=== PATIENT | male | born 1935 | race Caucasian/White ===

== ENCOUNTER 2024-06-28 01:01 | Inpatient (IN) ==
[2024-06-28 01:56] LABS: Basophils # (auto) 0.03 K/uL (0.00-0.20); Basophils % (auto) 0.4 %; Eosinophils # (auto) 0.08 K/uL (0.00-0.50); Eosinophils % (auto) 1.2 %; Hematocrit (blood only) 32.4 % (42.0-52.0); Immature Granulocytes # (auto) 0.02 K/uL (0.01-0.20); Immature Granulocytes % (auto) 0.3 %; Lymphocytes # (auto) 0.68 K/uL (1.20-3.40); Lymphocytes % (auto) 10.1 %; Mean Corpuscular Hemoglobin 22.1 pg (25.0-34.0); Mean Corpuscular Hgb Conc 27.8 g/dL (32.0-36.0); Mean Corpuscular Volume 79.6 fL (80.0-100.0); Monocytes # (auto) 0.57 K/uL (0.11-0.59); Monocytes % (auto) 8.5 %; Neutrophils # (auto) 5.32 K/uL (1.40-6.50); Neutrophils % (auto) 79.5 %; Platelet Count 113 K/uL (130-400); RDW Coefficient of Variation 19.9 % (11.5-14.5); Red Blood Count 4.07 M/uL (4.70-6.10)
[2024-06-28 02:05] LABS: Calcium 8.5 mg/dl (8.6-10.3); Potassium 4.7 mmol/L (3.5-5.1)
[2024-06-28 02:11] LABS: BUN Creatinine Ratio 25.2 (10-20); Creatinine Clr Calc Pharmacy 58.4 ml/min
[2024-06-28 02:20] LABS: INR 1.2 (0.9-1.1); Prothrombin Time 12.4 Seconds (9.0-12.0)
--- NOTE | 2024-06-28 02:27 | CT Scan Report ---
EXAM: CT head/brain wo con CLINICAL HISTORY: Fall w/ facial injury. Blood thinner TECHNIQUE: Multiple axial images are obtained from the skull base to the vertex without contrast. CT scan was performed according to ALARA (as low as reasonable achievable). COMPARISON: None. FINDINGS: There is cerebral atrophy. No evidence of space occupying lesion, hemorrhage, edema, mass effect, midline shift, extra axial collection, or hydrocephalus is noted. Basal cisterns are symmetric and normal in size and configuration. There are scattered periventricular hypodensities as can be seen with chronic microvascular ischemic changes. The reed-white matter differentiation is preserved. Retention cyst is noted in the left maxillary sinus. Mild bilateral ethmoid sinusitis. Rest of paranasal sinuses and mastoid air cells are well aerated. Orbital contents are within normal limits. Bony structures are intact. Displaced fracture of bilateral nasal bone. IMPRESSION: 1. No evidence of acute intracranial abnormality is demonstrated. 2. Chronic microvascular ischemic changes. 3. Cerebral atrophy. Electronically signed by Jesus Farnsworth 06-28-2024 02:26 AM
--- NOTE | 2024-06-28 02:30 | CT Scan Report ---
EXAM: CT cervical spine wo con CLINICAL HISTORY: Fall w/ facial injury. Blood thinner TECHNIQUE: Computed tomography of the cervical spine performed without intravenous contrast. Contiguous axial images were obtained from the skull base to T2, with sagittal and coronal reformatted images reconstructed from the axial data. CT scan was performed according to ALARA (as low as reasonable achievable). COMPARISON: None. FINDINGS: Loss of cervical lordosis - suggest possibility of muscle spasm/positional. Degenerative changes involving cervical spine in the form of multilevel marginal osteophytes, disc space reduction and facetal arthrosis. Cervical vertebral bodies are normal in height and alignment, with no evidence of fracture or subluxation. Lateral masses of C1 are symmetrical, and the dens is intact. Prevertebral soft tissues are not widened. The remaining suprahyoid and infrahyoid soft tissues in the neck are unremarkable. Posterior uncovertebral arthrosis is noted at C6-C7 levels, which indenting ventral thecal sac and causes bilateral neuroforaminal narrowing. Thyroid gland appears unremarkable. IMPRESSION: 1.No acute fracture or subluxation in the cervical spine. 2.Cervical spondylosis. Visualized lung apices showed bilateral pleural effusion. Electronically signed by Jesus Farnsworth 06-28-2024 02:29 AM
--- NOTE | 2024-06-28 02:33 | CT Scan Report ---
EXAM: CT facial bones wo con CLINICAL HISTORY: Fall w/ facial injury. Blood thinner TECHNIQUE: Computed tomography of the orbits/face was performed without intravenous contrast. Contiguous axial images were obtained. Reformatted coronal and sagittal images were also reviewed. CT scan was performed according to ALARA (as low as reasonable achievable). COMPARISON: none. FINDINGS: Displaced fracture of bilateral nasal bone. Linear fracture of frontal process of maxilla bilaterally. Displaced fracture of right lamina papyracea. Right ethmoid hemosinus formation A retention cyst is noted in the left maxillary sinus. Rest of paranasal sinuses and mastoid air cells are clear. The globes, optic nerves, extraocular muscles and retro-orbital fat are grossly unremarkable. Reformatted imaging demonstrates intact roof and floor of the orbits. Included portions of the mandible are intact. The included intracranial substances and airway are unremarkable. IMPRESSION: Displaced fracture of bilateral nasal bone. Linear fracture of frontal process of maxilla bilaterally. Displaced fracture of right lamina papyracea. Right ethmoid hemosinus formation A retention cyst is noted in the left maxillary sinus. Electronically signed by Jesus Farnsworth 06-28-2024 02:32 AM
[2024-06-28 02:50] LABS: Adenovirus PCR Not Detected (NotDetected); Bordetella parapertussis PCR Not Detected (NotDetected); Bordetella pertussis PCR Not Detected (NotDetected); Chlamydia pneumoniae PCR Not Detected (NotDetected); Coronavirus 229E PCR Not Detected (NotDetected); Coronavirus CoV-2 (COVID19)PCR Not Detected (NotDetected); Coronavirus HKU1 PCR Not Detected (NotDetected); Coronavirus NL63 PCR Not Detected (NotDetected); Coronavirus OC43PCR Not Detected (NotDetected); Human Metapneumovirus PCR Not Detected (NotDetected); Influenza A PCR Not Detected (NotDetected); Influenza B PCR Not Detected (NotDetected); Mycoplasma pneumoniae PCR Not Detected (NotDetected); Parainfluenza Virus 1 PCR Not Detected (NotDetected); Parainfluenza Virus 2 PCR Not Detected (NotDetected); Parainfluenza Virus 3 PCR Not Detected (NotDetected); Parainfluenza Virus 4 PCR Not Detected (NotDetected); Respiratory Syncytial VirusPCR Not Detected (NotDetected); Rhinovirus/Enterovirus PCR Not Detected (NotDetected)
--- NOTE | 2024-06-28 02:55 | Emergency Department Note ---
Impression & Plan Maxillary fracture, Closed fracture nasal bone, Head injury, Pleural effusion, Acute hypoxemic respiratory failure ED Provider Note NAME: ANASTASIA MCLAUGHLIN AGE: 88 SEX: M : 1935 ARRIVES VIA: Ambulance INFORMANT: Patient, ED PROVIDER(S): Matthew Alvarado MD CHIEF COMPLAINT: Fall HPI: This is a 88-year-old male presenting for a fall. Patient states that he was ambulating with his cane instead of his walker. He states he fell for unknown reasons and hit the bathroom floor. He may have hit either the sink or the ground. He has contusion of the right eye. He has multiple skin tears to the right arm. He reports pain through his face at this time. He does take Eliquis for A-fib. Otherwise no nausea or vomiting. He reports persistent cough which is worsening of the past few days ROS: See above HPI for pertinent positives & negatives. A total of 10 systems reviewed and were otherwise negative. PAST MEDICAL HISTORY: See Below PAST SURGICAL HISTORY: See Below FAMILY HISTORY: See Below SOCIAL HISTORY: See Below HOME MEDICATIONS: See Below ALLERGIES: See Below VITALS: See Below PHYSICAL EXAMINATION: General: resting comfortably in no acute distress Head: Normocephalic, right periorbital ecchymosis, small contusion to the nasal bridge Eyes: Normal inspection, extraocular muscles intact Ear, nose, throat: Normal external exam Neck: Normal range of motion Respiratory: lungs clear to auscultation bilaterally Cardiovascular: Regular rate/rhythm, no murmur GI: soft, nontender, no guarding or rebound Extremities: nontender, moves all extremities Neuro: The patient awake and alert, appropriately conversive, no focal deficits, symmetric faces Skin: Warm, dry, and intact MEDICAL DECISION MAKING: This is an 88-year-old male presenting after a fall. Will do CT of the head, C- spine and face due to patient's current injuries. If there is no obvious deformities to the extremities she does have skin tears without underlying laceration. Will update tetanus at this time -Blood was reviewed showing hemoglobin at 9, no leukocytosis. INR 1.2. Upper restaurant panel negative -Electrolytes within normal limits -CT of the head and C-spine are negative for fractures, CT of the face does reveal nasal fractures bilaterally, displaced, linear fracture frontal process of maxilla bilaterally, and fracture of the right lamina papyracea. -Will give Augmentin at this time. -Consider discharge her patient is currently hypoxic, likely either CHF versus pneumonia. Will order chest x-ray -Chest x-ray as Independently interpreted by me reveals possible right focal opacity. -Will admit the patient he is currently hypoxic requiring 2 L. -Care discussed with Dr. Valdes for admission. -Official read of x-ray does reveal possible pulmonary contusion versus aspiration. CT scan ordered. To rule out pulmonary contusion. -CT scan does not reveal pulmonary contusion instead reveals pleural effusion Differential diagnosis: Intracranial hemorrhage, cervical spine fracture, facial fracture Independent History obtained from: Daughter Diagnostics interpreted by me: ECG: None Cardiac Monitoring: An order was placed for continuous cardiac monitoring. The monitor shows a rate of 89 with sinus rhythm. Past Med/Surg History Problem List (Updated 06/28/24 @ 06:15 by Matthew Alvarado MD) Acute hypoxemic respiratory failure (Acute) Pleural effusion (Acute) Head injury (Acute) Closed fracture nasal bone (Acute) Maxillary fracture (Acute) Medical History (Updated 06/28/24 @ 06:15 by Matthew Alvarado MD) HTN (hypertension), benign Tremor Surgical History (Updated 12/21/23 @ 09:34 by Lorene Nieves) S/P placement of cardiac pacemaker Social History Smoking Status: Former smoker Tobacco Type: Cigarettes Preferred Language: Lao Feels Safe at Home: Yes Allergies Allergies Allergy/AdvReac Type Severity Reaction Status Date / Time cat dander Allergy Sneezing Verified 06/28/24 05:23 Home Meds Home Medications Medication Instructions Recorded Confirmed albuterol sulfate 90 mcg/actuation 2 puff inhalation QID PRN Wheezing 12/21/23 06/28/24 aerosol inhaler apixaban 5 mg tablet 5 mg PO BID 12/21/23 06/28/24 aspirin 81 mg chewable tablet 81 mg PO DAILY 12/21/23 06/28/24 atorvastatin 10 mg tablet 10 mg PO QPM 12/21/23 06/28/24 cyanocobalamin (vitamin B-12) 500 500 mcg PO WK 12/21/23 06/28/24 mcg tablet fluticasone 250 mcg-salmeterol 50 1 inh inhalation BID 12/21/23 06/28/24 mcg/dose blistr powdr for inhalation fluticasone furoate 100 1 inh inhalation DAILY 12/21/23 06/28/24 mcg-vilanterol 25 mcg/dose inhalation powder isosorbide mononitrate 60 mg 60 mg PO DAILY 12/21/23 06/28/24 tablet,extended release 24 hr metformin 1,000 mg tablet 500 mg PO BID 12/21/23 06/28/24 metoprolol succinate 25 mg 25 mg PO DAILY 12/21/23 06/28/24 tablet,extended release 24 hr ondansetron 4 mg disintegrating 4 mg PO Q4H PRN Nausea 12/21/23 06/28/24 tablet Results & Data (ED) Vital Signs Vital Signs - 24 hr 06/28/24 01:12 06/28/24 01:34 06/28/24 01:43 Temperature 36.6 C Temperature Source Oral Pulse Rate 128 H 117 H Pulse Rate [Apical] 104 H Pulse Rate from SpO2 Sensor Respiratory Rate 20 20 Respiratory Effort / Characteristics Non-Labored Spontaneous Respiratory Depth Normal Respiratory Pattern Regular Blood Pressure 162/96 H Blood Pressure [Right Arm] 153/94 H Blood Pressure Mean 118 Blood Pressure Mean [Right Arm] 113 Blood Pressure Position Semi-fowlers Blood Pressure Position [Right Arm] Semi-fowlers Pulse Oximetry 93 96 Oxygen Delivery Method Room Air Nasal Cannula Oxygen Flow Rate 2 Sepsis Recent Fever Within 48 Hours No Sepsis New/Unexplained Change in Mental Status No Sepsis Action Taken by Nursing No Action Required 06/28/24 02:12 06/28/24 03:30 06/28/24 04:33 Temperature Temperature Source Pulse Rate 98 H 92 H Pulse Rate [Apical] 84 Pulse Rate from SpO2 Sensor 100 H 112 H Respiratory Rate 18 15 18 Respiratory Effort / Characteristics Respiratory Depth Respiratory Pattern Blood Pressure 162/113 H 160/124 H Blood Pressure [Right Arm] 158/111 H Blood Pressure Mean 129 136 Blood Pressure Mean [Right Arm] 126 Blood Pressure Position Blood Pressure Position [Right Arm] Semi-fowlers Pulse Oximetry 96 96 91 Oxygen Delivery Method Nasal Cannula Room Air Room Air Oxygen Flow Rate 2 Sepsis Recent Fever Within 48 Hours Sepsis New/Unexplained Change in Mental Status Sepsis Action Taken by Nursing 06/28/24 05:00 06/28/24 05:27 06/28/24 05:31 Temperature Temperature Source Pulse Rate 87 87 Pulse Rate [Apical] 88 Pulse Rate from SpO2 Sensor 92 H Respiratory Rate 16 18 Respiratory Effort / Characteristics Respiratory Depth Respiratory Pattern Blood Pressure 191/113 H Blood Pressure [Right Arm] 165/122 H Blood Pressure Mean 139 Blood Pressure Mean [Right Arm] 136 Blood Pressure Position Blood Pressure Position [Right Arm] Pulse Oximetry 94 97 Oxygen Delivery Method Room Air Room Air Oxygen Flow Rate Sepsis Recent Fever Within 48 Hours Sepsis New/Unexplained Change in Mental Status Sepsis Action Taken by Nursing 06/28/24 05:32 Temperature Temperature Source Pulse Rate 89 Pulse Rate [Apical] Pulse Rate from SpO2 Sensor Respiratory Rate Respiratory Effort / Characteristics Respiratory Depth Respiratory Pattern Blood Pressure Blood Pressure [Right Arm] Blood Pressure Mean Blood Pressure Mean [Right Arm] Blood Pressure Position Blood Pressure Position [Right Arm] Pulse Oximetry Oxygen Delivery Method Oxygen Flow Rate Sepsis Recent Fever Within 48 Hours Sepsis New/Unexplained Change in Mental Status Sepsis Action Taken by Nursing Laboratory Data 06/28/24 01:37 06/28/24 01:37 Lab Results 06/28/24 Range/Units 01:37 WBC 6.70 (4.8-10.8) K/ul RBC 4.07 L (4.70-6.10) M/uL Hgb 9.0 L (14.0-18.0) g/dl Hct 32.4 L (42.0-52.0) % MCV 79.6 L (80.0-100.0) fL MCH 22.1 L (25.0-34.0) pg MCHC 27.8 L (32.0-36.0) g/dL RDW Std Deviation 57.0 H (36.4-46.3) fL RDW Coeff of [place] 19.9 H (11.5-14.5) % Plt Count 113 L (130-400) K/uL MPV 10.0 (9.4-12.4) fL Immature Gran % (Auto) 0.3 % Neut % (Auto) 79.5 % Lymph % (Auto) 10.1 % [place] % (Auto) 8.5 % Eos % (Auto) 1.2 % Baso % (Auto) 0.4 % Neut # (Auto) 5.32 (1.40-6.50) K/uL Lymph # (Auto) 0.68 L (1.20-3.40) K/uL [place] # (Auto) 0.57 (0.11-0.59) K/uL Eos # (Auto) 0.08 (0.00-0.50) K/uL Baso # (Auto) 0.03 (0.00-0.20) K/uL Immature Gran # (Auto) 0.02 (0.01-0.20) K/uL PT 12.4 H (9.0-12.0) Seconds INR 1.2 H (0.9-1.1) Sodium 138 (136-145) mmol/L Potassium 4.7 (3.5-5.1) mmol/L Chloride 107 (98-107) mmol/L Carbon Dioxide 26 (21-32) mmol/L Anion Gap 5 (3-11) BUN 30 H (6-23) mg/dl Creatinine 1.19 (0.6-1.4) mg/dl Est Cr Clr Drug Dosing 58.4 ml/min eGFR 59.12 BUN/Creatinine Ratio 25.2 H (10-20) Glucose 138 H (70-99(Fasting)) mg/dl Calcium 8.5 L (8.6-10.3) mg/dl Adenovirus (PCR) Not Detected (NotDetected) B. pertussis DNA (PCR) Not Detected (NotDetected) B.parapertussis DNA PCR Not Detected (NotDetected) C. pneumoniae DNA (PCR) Not Detected (NotDetected) Coronavirus OC43 (PCR) Not Detected (NotDetected) Coronavirus HKU1 (PCR) Not Detected (NotDetected) Coronavirus 229E (PCR) Not Detected (NotDetected) SARS-CoV-2 (PCR) Not Detected (NotDetected) Coronavirus NL63 (PCR) Not Detected (NotDetected) Human Metapneumovir PCR Not Detected (NotDetected) Influenza Type A (PCR) Not Detected (NotDetected) Influenza Type B (PCR) Not Detected (NotDetected) M. pneumoniae (PCR) Not Detected (NotDetected) Parainfluenza 1 (PCR) Not Detected (NotDetected) Parainfluenza 2 (PCR) Not Detected (NotDetected) Parainfluenza 3 (PCR) Not Detected (NotDetected) Parainfluenza 4 (PCR) Not Detected (NotDetected) RSV (PCR) Not Detected (NotDetected) Entero/Rhino (PCR) Not Detected (NotDetected) Administered Medications Discontinued Medications Amoxicillin/Clavulanate Potassium (Amoxicillin/Clavulanate 875 Mg Tab) 1 tab PO NOW ONE; Protocol Stop: 06/28/24 02:56 Last Admin: 06/28/24 04:15 Dose: 1 tab Documented By: SHANTEL Diphtheria/Pertussis/Tetanus Vacc (Diphther/Tetan/Pertus Vaccine (Tdap, Adol/Adult) 0.5ml) 0.5 ml IM .ONCE ONE Stop: 06/28/24 02:52 Last Admin: 06/28/24 04:13 Dose: 0.5 ml Documented By: SHANTEL Ioversol (Optiray 320 100ml) 100 ml IV ONCE ONE Stop: 06/28/24 04:07 Last Admin: 06/28/24 04:06 Dose: 93 ml Documented By: KC Labetalol HCl (Labetalol Hcl Iv 5 Mg/Ml 20ml) 10 mg IV NOW STA Stop: 06/28/24 05:10 Last Admin: 06/28/24 05:32 Dose: 10 mg Documented By: SHANTEL Imaging Data Radiologist's Impression: Cervical Spine CT 06/28/24 01:11 EXAM: CT cervical spine wo con CLINICAL HISTORY: Fall w/ facial injury. Blood thinner TECHNIQUE: Computed tomography of the cervical spine performed without intravenous contrast. Contiguous axial images were obtained from the skull base to T2, with sagittal and coronal reformatted images reconstructed from the axial data. CT scan was performed according to ALARA (as low as reasonable achievable). COMPARISON: None. FINDINGS: Loss of cervical lordosis - suggest possibility of muscle spasm/positional. Degenerative changes involving cervical spine in the form of multilevel marginal osteophytes, disc space reduction and facetal arthrosis. Cervical vertebral bodies are normal in height and alignment, with no evidence of fracture or subluxation. Lateral masses of C1 are symmetrical, and the dens is intact. Prevertebral soft tissues are not widened. The remaining suprahyoid and infrahyoid soft tissues in the neck are unremarkable. Posterior uncovertebral arthrosis is noted at C6-C7 levels, which indenting ventral thecal sac and causes bilateral neuroforaminal narrowing. Thyroid gland appears unremarkable. IMPRESSION: 1.No acute fracture or subluxation in the cervical spine. 2.Cervical spondylosis. Visualized lung apices showed bilateral pleural effusion. Electronically signed by Jesus Farnsworth 06-28-2024 02:[address] 06/28/24 01:11 EXAM: CT facial bones wo con CLINICAL HISTORY: Fall w/ facial injury. Blood thinner TECHNIQUE: Computed tomography of the orbits/face was performed without intravenous contrast. Contiguous axial images were obtained. Reformatted coronal and sagittal images were also reviewed. CT scan was performed according to ALARA (as low as reasonable achievable). COMPARISON: none. FINDINGS: Displaced fracture of bilateral nasal bone. Linear fracture of frontal process of maxilla bilaterally. Displaced fracture of right lamina papyracea. Right ethmoid hemosinus formation A retention cyst is noted in the left maxillary sinus. Rest of paranasal sinuses and mastoid air cells are clear. The globes, optic nerves, extraocular muscles and retro-orbital fat are grossly unremarkable. Reformatted imaging demonstrates intact roof and floor of the orbits. Included portions of the mandible are intact. The included intracranial substances and airway are unremarkable. IMPRESSION: Displaced fracture of bilateral nasal bone. Linear fracture of frontal process of maxilla bilaterally. Displaced fracture of right lamina papyracea. Right ethmoid hemosinus formation A retention cyst is noted in the left maxillary sinus. Electronically signed by Jesus Farnsworth 06-28-2024 02:[address] 06/28/24 01:11 EXAM: CT head/brain wo con CLINICAL HISTORY: Fall w/ facial injury. Blood thinner TECHNIQUE: Multiple axial images are obtained from the skull base to the vertex without contrast. CT scan was performed according to ALARA (as low as reasonable achievable). COMPARISON: None. FINDINGS: There is cerebral atrophy. No evidence of space occupying lesion, hemorrhage, edema, mass effect, midline shift, extra axial collection, or hydrocephalus is noted. Basal cisterns are symmetric and normal in size and configuration. There are scattered periventricular hypodensities as can be seen with chronic microvascular ischemic changes. The reed-white matter differentiation is preserved. Retention cyst is noted in the left maxillary sinus. Mild bilateral ethmoid sinusitis. Rest of paranasal sinuses and mastoid air cells are well aerated. Orbital contents are within normal limits. Bony structures are intact. Displaced fracture of bilateral nasal bone. IMPRESSION: 1. No evidence of acute intracranial abnormality is demonstrated. 2. Chronic microvascular ischemic changes. 3. Cerebral atrophy. Electronically signed by Jesus Farnsworth 06-28-2024 02:26 AM Chest X-Ray 06/28/24 01:48 EXAM: XR chest 1V portable CLINICAL HISTORY: cough, congestion TECHNIQUE: An X-ray image of the chest is obtained using an AP projection. COMPARISON: No prior studies are available for comparison. FINDINGS: Pulmonary Parenchyma: Obliteration of both costophrenic angles denoting bilateral pleural effusion is more marked on the right side. Veiling /groundglass opacity seen in the right lower lung zone, in the clinical setting of trauma pulmonary aspiration/hemorrhage should be considered. No evidence of lung collapse Heart and Mediastinum: Heart size and shape are normal. No mediastinal widening or masses. No hilar or mediastinal lymphadenopathy. Bony Thorax: The bony thorax appears intact without fractures or deformities. Soft Tissues: Soft tissues overlying the chest wall are unremarkable. IMPRESSION: 1. Blunting of both costophrenic angles suggests bilateral pleural effusion more marked on the right side. 2. Veiling/ground glass opacity of the right lower lung zone, in the clinical setting of trauma pulmonary aspiration/hemorrhage, should be considered. Electronically signed by Frankie Beckwith 06-28-2024 03:[address] 06/28/24 03:10 EXAM: CT chest diagnostic w con CLINICAL HISTORY: Aspiration vs pulmonary contusion TECHNIQUE: Contiguous axial images were obtained from the neck base through the upper abdomen following intravenous administration of contrast material. If IV contrast material had not been administered, the likelihood of detecting abnormalities relevant to the patient's condition would have been substantially decreased. In addition, sagittal and coronal reconstructions were performed. CT scan was performed according to ALARA (as low as reasonably achievable). COMPARISON: none FINDINGS: Bilateral moderate pleural effusion with bilateral fissural extension and adjacent basal atelectasis. Diffuse mosaic attenuation in bilateral lungs. Multiple enlarged right paratracheal, pretracheal, AP window, subcarinal and prevascular lymph nodes seen, largest of size 1.9x1.3cm. The central airways are patent. No pneumothorax is seen. No axillary, hilar, or mediastinal adenopathy is identified. The visualized thyroid is unremarkable. The heart, aorta, and pulmonary arteries are of normal size and configuration. Cardiac pacemaker seen. No pericardial effusion is identified. Imaged portions of the upper abdomen are unremarkable. No aggressive appearing osseous lesions are identified. Degenerative changes in visualized spine. IMPRESSION: 1. Bilateral moderate pleural effusion with adjacent basal atelectasis. Suggested aspiration and analysis. 2. Diffuse mosaic attenuation in bilateral lungs. Likely small airway disease. 3. Mediastinal lymphadenopathy - likely reactive. Electronically signed by Jesus Farnsworth 06-28-2024 05:25 AM Discharge Plan Visit Data Chief Complaint: Fall Stated Complaint: Fall, Contusion R Eye, Lac R Arm ED Provider: Matthew Alvarado Discharge Problem: Maxillary fracture, Closed fracture nasal bone, Head injury, Pleural effusion, Acute hypoxemic respiratory failure Forms Stand Alone Forms: My [facility] Prescriptions Prescriptions: No Action albuterol sulfate 90 mcg/actuation HFA aerosol inhaler 2 puff inhalation QID PRN (Reason: Wheezing) apixaban 5 mg tablet 5 mg PO BID aspirin 81 mg tablet,chewable 81 mg PO DAILY atorvastatin 10 mg tablet 10 mg PO QPM cyanocobalamin (vitamin B-12) 500 mcg tablet 500 mcg PO WK fluticasone furoate-vilanterol 100-25 mcg/dose blister with device 1 inh inhalation DAILY fluticasone propion-salmeterol 250-50 mcg/dose blister with device 1 inh inhalation BID isosorbide mononitrate 60 mg tablet extended release 24 hr 60 mg PO DAILY metformin 1,000 mg tablet 500 mg PO BID metoprolol succinate 25 mg tablet extended release 24 hr 25 mg PO DAILY ondansetron 4 mg tablet,disintegrating 4 mg PO Q4H PRN (Reason: Nausea) Referrals Referrals: Juan Manuel Naik MD [Primary Care Provider] -
--- NOTE | 2024-06-28 03:03 | XRay Report ---
EXAM: XR chest 1V portable CLINICAL HISTORY: cough, congestion TECHNIQUE: An X-ray image of the chest is obtained using an AP projection. COMPARISON: No prior studies are available for comparison. FINDINGS: Pulmonary Parenchyma: Obliteration of both costophrenic angles denoting bilateral pleural effusion is more marked on the right side. Veiling /groundglass opacity seen in the right lower lung zone, in the clinical setting of trauma pulmonary aspiration/hemorrhage should be considered. No evidence of lung collapse Heart and Mediastinum: Heart size and shape are normal. No mediastinal widening or masses. No hilar or mediastinal lymphadenopathy. Bony Thorax: The bony thorax appears intact without fractures or deformities. Soft Tissues: Soft tissues overlying the chest wall are unremarkable. IMPRESSION: 1. Blunting of both costophrenic angles suggests bilateral pleural effusion more marked on the right side. 2. Veiling/ground glass opacity of the right lower lung zone, in the clinical setting of trauma pulmonary aspiration/hemorrhage, should be considered. Electronically signed by Frankie Beckwith 06-28-2024 03:03 AM
--- OUTSIDE RECORDS SUMMARY | 2024-06-28 03:38 | External Medical Summary | Summary of Care ---
Author Name Unknown Organization [facility] Address [address] [facility] [place] [address] Phone [phone] Care Team Providers Care Corporate Travel Coordinator Name Role Phone Juan Manuel Naik MD Primary Care Provider [phone] Encounter Details Date Type Department Care Team (Late st Contact Info) Description 06/14/2024 Telephone [facility] [address] [place] [place] [phone] Juan Manuel Naik MD [address] [facility] [place], [place] [id number] Allergies Active Allergy Reactions Criticality Noted Date Comments Cat Dander Conjunctivitis 05/01/2023 documented as of this encounter (statuses as of 06/15/2024) Medications Aspirin 81 MG Oral Tablet Delayed Release (Aspirin 81) Take 1 Tablet by mouth in the morning. Active Acetaminophen 325 MG Oral Tablet (Tylenol) Take 1 Tablet by mouth every 6 hours as needed. Active Loperamide HCl 2 MG Oral Tablet (Immodium (A-D)) Take 1 Tablet by mouth every 12 hours as needed for Diarrhea. Active Albuterol Sulfate HFA 108 (90 Base) MCG/ACT Inhalation Aerosol Solution Inhale 2 Puffs by mouth every 8 hours as needed for Shortness of Breath or Wheezing. 54 g 3 05/07/20 23 Active Glucose 40 % Oral Gel (Glutose 5) Take 15 g of glucose by mouth as needed for Hypoglycemia (low sugar). Less than 60 three times notify MD 2 Each 3 05/07/20 Active guaiFENesin 100 MG/5ML Oral Liquid Take 10 mL by mouth every 4 hours as needed for Cough. 120 mL 3 05/07/20 23 Active Lidocaine HCl 4 % External Cream (Aspercreme Lidocaine) Apply 1 g topically to affected area in the morning and 1 g in the evening. Apply topically to back at bedtime for back pain. 133 g 3 05/14/20 23 Active FreeStyle Lancets Use to test blood sugars once daily 100 Each 3 05/26/19 24 Active Fluticasone-Sa lmeterol 250-50 MCG/ACT Inhalation Aerosol Powder Breath Activated (Advair Diskus) Inhale 1 Puff by mouth in the morning and 1 Puff before bedtime. 60 Each 08/11/19 24 Active Additional Information Patient taking differently:1 Puff InhalationPRN, Reported on 06/13/2024 Fluticasone Furoate-Vilant sid 100-25 MCG/ACT Inhalation Aerosol Powder Breath Activated (BREO ellipta) Inhale 1 Puff by mouth in the morning. 28 Each 08/13/19 24 Active metFORMIN HCl 1000 MG Oral Tablet (Glucophage) TAKE 1 TABLET BY MOUTH EVERY DAY IN THE MORNING 90 Tablet 04/09/20 24 Active Additional Information Patient taking differently: 500 mg Oral Daily(AM), Reported on 06/13/2024 Atorvastatin Calcium 10 MG Oral Tablet (Lipitor) TAKE 1 TABLET BY MOUTH EVERY DAY IN THE AFTERNOON 90 Tablet 3 04/28/20 24 Active Metoprolol Succinate ER 25 MG Oral Tablet Extended Release 24 Hour (toPROL XL) TAKE 1 TABLET BY MOUTH EVERY DAY IN THE MORNING 90 Tablet 05/13/20 24 Active Isosorbide Mononitrate ER 60 MG Oral Tablet Extended Release 24 Hour (Imdur) Take 1 Tablet by mouth in the morning. 90 Tablet 3 05/13/20 24 Active Ondansetron HCl 4 MG Oral Tablet (Zofran) TAKE 1 TABLET BY MOUTH EVERY 4 HOURS NEEDED FOR NAUSEA OR VOMITING. 20 Tablet 3 05/20/20 24 Active Vitamin B-12 500 MCG Oral Tablet (vitamin B-12) TAKE 1 TABLET BY MOUTH ONCE A WEEK ON THURSDAYS 48 Tablet 1 05/20/20 24 Active Apixaban 5 MG Oral Tablet (Eliquis) Take 1 Tablet by mouth in the morning and 1 Tablet before bedtime. Take 1 tab by mouth twice daily for atrial fibrillation . 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 05/07/2023 documented as of this encounter (statuses as of 06/15/2024) Immunizations Name Administration Dates Next Due COVID-19 mRNA, LNP-s, No Pre serve, 2-Dose Series (Moderna) 05/15/2021,07/24/2020,06/22/2020 Pneumococcal Polysaccharide PPV23 (Pneumovax) 02/10/2020 Seasonal Influenza Vac., MDV , IM, 0.5 mL (Fluzone) 03/06/2015,02/02/2013 Seasonal Influenza Virus Vac cine, Unspecified Formulation 02/11/2017,02/02/2013 Seasonal Influenza, High Dos e, Trivalent, PF, IM (Fluzone HD) 02/09/2019,02/10/2018 Tetanus Toxid Adsorbed 05/25/1995 Zoster Vaccine Recombinant (Shingrix) 03/13/2020 documented as of this encounter Social History Tobacco Use Types Packs/Day Years Used Date Smoking Tobacco: Former Cigarettes Passive Smoke Exposure: Past Smokeless Tobacco: Never Alcohol Use Standard Drinks/Week Comments Not Currently 0 (1 standard drink = 0.6 oz pur e alcohol) PHQ-2 Answer Date Recorded PHQ Adult Total Score 0 05/01/2023 Hunger Vital Sign Answer Date Recorded Within the past 12 months, y ou worried that your food would run out before you got the money to buy more. Never true 05/01/20 23 Within the past 12 months, t he food you bought just didn't last and you didn't have money to get more. Never true 05/01/2023 Childcare Answer Date Recorded Do you feel overwhelmed with taking care of a child, family member or friend? No 05/01/2023 Does your family need help f inding childcare? (Household - for ages 0-17 years) Not on file 05/01/2023 Clothing Answer Date Recorded Have you been unable to get clothing when it was really needed? No 05/01/2023 Is your family able to get c lothes or diapers when needed? (Household - for ages 0-17 years) Not on file 05/01/2023 Personal Safety Answer Date Recorded Do you feel unsafe or have concerns for your saf ety? No 05/01/2023 Do you have concerns for you r family's safety? (Household - for ages 0-17 years) Not on file 05/01/2023 Utilities Answer Date Recorded Do you have trouble paying y our heating, water, or electric bill? No 05/01/2023 Is your family able to pay t he heat, water, or electric bill? (Household - for ages 0-17 years) Not on file 05/01/2023 Does your family have access to good internet? (Household - for ages 0-17 years) Not on file 05/01/2023 Employment Status Answer Date Recorded Are you unemployed or without regular income? No 05/01/2023 Does the household have a re gular source of income? (Household - for ages 0-17 years) Not on file 05/01/2023 Social Connections Answer Date Recorded How often do you feel lonely or isolated from th ose around you? Never 05/01/2023 Financial Resource Strain Answer Date R ecorded Do you have any trouble payi ng for your medications, or do you think you might in the future? No 05/01/2023 Does your family have troubl e paying for medicine? (Household - for ages 0-17 years) Not on file 05/01/2023 Transportation Needs Answer Date Record ed READ ONLY Do you have troubl e getting a ride to medical visits or work? Sometimes True 05/01/2023 Does your family have a hard time getting a ride to doctors visits? (Household - for ages 0-17 years) Not on file 05/01/2023 Has lack of transportation k ept you from medical appointments, meetings, work, or from getting things needed for daily living? Check all that apply. (Adult - for ages 18 years and over) Not on file 05/01/2023 Do you (or your family) have trouble finding or paying for a ride (transportation)? (Household - for ages 0-17 years) Not on file 05/01/2023 Housing Stability Answer Date Recorded Do you currently live in a s helter or have no steady place to sleep at night? No 05/01/2023 READ ONLY Do you think you a re at risk of becoming homeless? No 05/01/2023 Does your family worry about paying for your home or becoming homeless? (Household - for ages 0-17 years) Not on file 1 07/02/2022 Are you homeless or worried that you might be in the future? (Adult - for ages 18 years and over) Not on file Are you (or your family) celestino eless or worried that you might be in the future? (Household - for ages 0-17 years) Not on file Food Insecurity Answer Date Recorded Do you need food for this week? No 05/01/2023 Are you able to get enough f ood for your family? (Household - for ages 0-17 years) Not on file 05/01/2023 Does your family need food t his week? (Household - for ages 0-17 years) Not on file 05/01/2023 Do you always have enough fo od for your family? (Household - for ages 0-17 years) Not on file 05/01/2023 Sex and Gender Information Value Date Recorded Sex Assigned at Male 05/01/2023 7:01 AM EST Legal Sex Male 12:47 PM EST Gender Identity Male 05/01/2023 7:01 AM EST Sexual Orientation Straight 05/01/2023 7: 01 AM EST documented as of this encounter Miscellaneous Notes * Telephone Encounter - Saritha Blankenship LPN - 06/15/2024 11:33 AM EST Please assist in scheduling patient, thank you! * Telephone Encounter - Juan Manuel Naik MD - 06/14/2024 8:21 AM EST Please advise pt to f/u with me or any provider for routine check up documented in this encounter Plan of Treatment Upcoming Encounters Date Type Department Care Team (Late st Contact Info) Description 06/20/2024 1:00 PM EST Imaging Vascular Lab, [address], [address] [place] [address] 09/27/2024 8:00 AM EDT Imaging [address], [address] [address] 09/27/2024 12:00 PM EDT Imaging [address] Cardiology, [address] [place] [address] 12/19/2024 9:20 AM EDT Telemedicine Neurology [address] [place] [phone] Constantine Lezama MD [address] [facility] [place] [address] Health Maintenance Due Date Last Done Comments Adult Wellness Visit 2002 Zoster Vaccines (2 of 2) 05/08/2020 03/13/2020 Pneumococcal Vaccine: 50+ Years (2 of 2 - PCV) 02/09/2021 02/10/2020 AAA Monitoring 12/05/2023 12/04/2022, 11/22, 01/21/2022, Additional history exists COVID-19 Vaccine ( - season) 2024 05/15/2021, 07/24/2020, 06/22/2020 Influenza Vaccine (FLU shot) (#1) 2024 02/09/2019, 02/10/2018, 02/11/2017, Additional history exists HbA1c 02/17/2024 08/17/2023, 04/24, 07/01/2022, Additional history exists Depression Screening 05/01/2024 05/01/2023 Diabetic Eye Exam 05/07/2024 05/07/2023 Albumin/Creatinine Ratio 08/16/2024 08/17/2023 Diabetic Foot Exam 08/16/2024 08/17/2023 DTap/Tdap Vaccines Discontinued HPV (Gardasil) Vaccine Aged Out No lo nger eligible based on patient's age to complete this topic Hepatitis B Vaccine Aged Out No longe r eligible based on patient's age to complete this topic MENINGOCOCCAL (MENACTRA/MENVEO) Aged Out No longer eligible based on patient's age to complete this topic documented as of this encounter Medical Devices Not on filedocumented as of this encounter Care Teams Corporate Travel Coordinator Relationship Specialty Start Date End Date Juan Manuel Naik MD [address] [place] [id number] PCP - General Internal Medicine 06/13/24 documented as of this encounter
--- OUTSIDE RECORDS SUMMARY | 2024-06-28 03:38 | External Medical Summary | Summary of Care ---
Author Name Unknown Organization [facility] Address [address] [place] [address] Phone [phone] Care Team Providers Care Precision Layout Worker Name Role Phone Juan Manuel Naik MD Primary Care Provider [phone] Encounter Details Date Type Department Care Team (Late st Contact Info) Description 06/17/2024 Result Scan Unspecified Department Colette Means, DO [address] [facility] [place] [address] <No scans attached> Allergies Active Allergy Reactions Criticality Noted Date Comments Cat Dander Conjunctivitis 05/01/2023 documented as of this encounter (statuses as of 06/17/2024) Medications Aspirin 81 MG Oral Tablet Delayed [...] of Breath or Wheezing. 54 g 3 3 Active Glucose 40 % Oral Gel (Glutose 5) Take 15 g of glucose by mouth as needed for Hypoglycemia (low sugar). Less than 60 three times notify MD 2 Each 3 3 Active guaiFENesin 100 MG/5ML Oral Liquid Take 10 mL by mouth every 4 hours as needed for Cough. 120 mL 3 3 Active Lidocaine HCl 4 % External Cream (Aspercreme Lidocaine) Apply 1 g topically to affected area in the morning and 1 g in the evening. Apply topically to back at bedtime for back pain. 133 g 3 3 Active FreeStyle Lancets Use to test blood sugars once daily 100 Each 3 4 Active Fluticasone-Ede meterol 250-50 MCG/ACT Inhalation Aerosol Powder Breath Activated (Advair Diskus) Inhale 1 Puff by mouth in the morning and 1 Puff before bedtime. 60 Each 11 4 Active Additional Information Patient taking differently:1 Puff InhalationPRN, Reported on 06/13/2024 Fluticasone Furoate-Vilante rol 100-25 MCG/ACT Inhalation Aerosol Powder Breath Activated (BREO ellipta) Inhale 1 Puff by mouth in the morning. 28 Each 11 4 Active metFORMIN HCl 1000 MG Oral Tablet (Glucophage) TAKE 1 TABLET BY MOUTH EVERY DAY IN THE MORNING 90 Tablet 4 Active Additional Information Patient taking differently: 500 mg Oral Daily(AM), Reported on 06/13/2024 Atorvastatin Calcium 10 MG Oral Tablet (Lipitor) TAKE 1 TABLET BY MOUTH EVERY DAY IN THE AFTERNOON 90 Tablet 3 4 Active Metoprolol Succinate ER 25 MG Oral Tablet Extended Release 24 Hour (toPROL XL) TAKE 1 TABLET BY MOUTH EVERY DAY IN THE MORNING 90 Tablet 4 Active Isosorbide Mononitrate ER 60 MG Oral Tablet Extended Release 24 Hour (Imdur) Take 1 Tablet by mouth in the morning. 90 Tablet 3 4 Active Ondansetron HCl 4 MG Oral Tablet (Zofran) TAKE 1 TABLET BY MOUTH EVERY 4 HOURS NEEDED FOR NAUSEA OR VOMITING. 20 Tablet 3 4 Active Vitamin B-12 500 MCG Oral Tablet (vitamin B-12) TAKE 1 TABLET BY MOUTH ONCE A WEEK ON THURSDAYS 48 Tablet 1 4 Active Eliquis 5 MG Oral Tablet (Apixaban) TAKE 1 TABLET BY MOUTH IN THE MORNING AND 1 TABLET BEFORE BEDTIME 180 Tablet 1 5 Active documented as of this encounter (statuses as of 06/17/2024) Active Problems Problem Noted Date Diagnosed Date [...] as of this encounter (statuses as of 06/17/2024) Immunizations Name Administration Dates Next Due COVID-19 [...] 05/01/2023 Does the household have a re lar source of income? (Household - for ages [...] AM EST documented as of this encounter Plan of Treatment Upcoming Encounters Date Type Department Care Team (Late st Contact Info) Description 06/20/2024 1:00 PM EST Imaging Vascular Lab, [address] [facility] [place] [address] 09/27/2024 8:00 AM EDT Imaging [facility] 2nd [facility] Cardiology, [place] [address] [facility] [place] [phone] 09/27/2024 12:00 PM EDT Imaging [facility] 2nd Floor Cardiology, [place] [address] [facility] [place] [address] 12/19/2024 9:20 AM EDT Telemedicine Neurology [address] [place] [phone] Constantine Lezama MD [address] [facility] [place] [address] Health Maintenance Due Date Last Done Comments Adult Wellness Visit 2002 Zoster Vaccines (2 of 2) 05/08/2020 03/13/2020 Pneumococcal Vaccine: 50+ Years (2 of 2 - PCV) 02/09/2021 02/10/2020 AAA Monitoring 12/05/2023 12/04/2022, 11/22, 01/21/2022, Additional history exists COVID-19 Vaccine ( season) 2024 05/15/2021, 07/24/2020, 06/22/2020 Influenza Vaccine [...] Not on filedocumented as of this encounter Procedures Procedure Name Priority Date/Time Associated Diagnosis Comments CARDIOLOGY SCANNED RESULT 06/17/2024 documented in this encounter Results * CARDIOLOGY SCANNED RESULT (06/17/2024) 06/17/2024 us Colette Means DO OTHER Final R esult documented in this encounter Care Teams Precision Layout Worker Relationship Specialty Start Date End Date Juan Manuel Naik MD [address] [place] [address] PCP - General Internal Medicine 06/13/24 documented as of this encounter
--- OUTSIDE RECORDS SUMMARY | 2024-06-28 03:38 | External Medical Summary | Summary of Care ---
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 [facility] What condition is the patient being seen for? Carotid stenosis / Bruit / TIA / CVA Comments Today's carotid duplex showed critical left-sided carotid stenosis of 70 to 99 percent stenosis. Right side is 50 to 69 percent. * Precert (Within 10 days (routine)) - Authorized Specialty Diagnoses / Procedures Referred By Contac t Referred To Contact Radiology Diagnoses Vascular parkinsonism (HCC) Procedures NM BRAIN SPECT WITH DATSCAN Constantine Johnson MD [address] [place] [address] Phone: tel: fax: Referral ID Status Reason Start Date Expiration Date V isits Requested Visits Authorized [id number] Authorized 06/20/2024 [id number] Reason for Visit * Reason Comments NEW PATIENT Tremor * Evaluate & Treat - Unlimited Visits (Within 10 days (routine)) - Closed Specialty Diagnoses / Procedures Referred By Contac t Referred To Contact Neurology Diagnoses Tremor Jonah Brock MD Phone: tel: fax: Referral ID Status Reason Start Date Expiration Date V isits Requested Visits Authorized [id number] Closed Specialty Services Required 11/04/2023 [id number] Encounter Details Date Type Department Care Team (Late st Contact Info) Description 06/13/2024 10:40 AM EST [facility] [address] [place] [address] Constantine Johnson MD [address] [place] [address] Vascular parkinsonism (HCC)*; DM type 2 with diabetic peripheral neuropathy (HCC); Asymptomatic stenosis of right carotid artery; 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 60 Each 11 08/11/19 24 Active Additional Information Patient taking differently:1 Puff InhalationPRN, Reported on 06/13/2024 Fluticasone Furoate-Vilant sid 100-25 MCG/ACT Inhalation Aerosol Powder Breath Activated (BREO ellipta) Inhale 1 Puff by mouth in the morning. 28 Each 11 08/13/19 24 Active metFORMIN HCl 1000 MG [...] as of this encounter (statuses as of 06/20/2024) Active Problems Problem Noted Date Diagnosed Date [...] as of this encounter (statuses as of 06/20/2024) Immunizations Name Administration Dates Next Due COVID-19 [...] No 05/01/2023 Does the [facility] have a [facility] income? (Household - for ages [...] AM EST documented as of this encounter Last Filed Vital Signs Vital Sign Reading Time Taken Comments Blood Pressure 122/78 06/13/2024 10:51 AM EST Pulse 97 06/13/2024 10:51 AM EST Temperature 35.8 C (96.5 F) 06/13/2024 10:[address] Respiratory Rate 18 06/13/2024 10:51 AM EST Oxygen Saturation 99% 06/13/2024 10:51 AM EST Inhaled Oxygen Concentration - - Weight 116 kg (255 lb 11.2 oz) 06/13/2024 10:51 AM EST Height - - Body Mass Index 36.61 05/01/2023 7:03 AM EST documented in this encounter Progress Notes * Constantine Johnson MD - 06/13/2024 10:52 AM EST 06/13/2024 10:52 AM Diego Ocampo 88 year old male REF: JONAH BROCK Asked by Juan Manuel Naik MD to render opinion regarding Evaluation and management of tremors CC: Chief Complaint Patient presents with NEW PATIENT Tremor HPI: The patient is an 88-year-old right-handed gentleman with intermittent hand jerks for the pastyear. The tremors were getting more frequent. He estimates that he had like wanted to episodes a week and went down a couple times without losing his consciousness. Some of the episodes lasted for several minutes. His PCP found some light pipe and cogwheel rigidity. 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 In April 2018 he was evaluated for suspected TIA, had postural dizziness. Had normal EEG. Carotid ultrasound showed right side is 50 to 70 percent stenosis. He is on aspirin and lipid-lowering agents. 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 Recent B12 level from October of 2023 was 356. Creatinine 1.4, GFR estimated at 49. Last hemoglobin A1c 5.6 percent in July 2023. Normal TSH. Cranial MRI from November 2023 showed at least moderate degree of chronic white matter ischemic changesand remote lacunar ischemia within the right basal ganglia. Moderate ex vacuo enlargement of the ventricles with cavum septi pellucidi. He takes low-dose aspirin and Eliquis. Has been feeling electrical shock sensations in his hands. He was in [facility] for several years. 1953-. Has neck pain. He admitted that he did not take his metoprolol this morning. He really struggled with the lot of stressors lately and just lost his after [employer] and also was stress by the fact that his house had to be sold. Former heavy smoker, quit 15 years ago. He has a history of snoring but was ruled out for sleep apnea in the past. He had an episode of transient global amnesia years ago. PAST MEDICAL HISTORY: Patient Active Problem List Diagnosis Date Noted Permanent atrial fibrillation (HCC) [I48.21] 05/07/2023 S/P placement of cardiac pacemaker [Z95.0] 05/07/2023 Abdominal aortic aneurysm (AAA) without rupture ([facility]) [I71.40] 05/07/2023 Iliac artery stenosis, right ([facility]) [I77.1] 05/07/2023 Asymptomatic bilateral carotid artery stenosis [I65.23] 05/07/2023 HTN, goal below 140/90 [I10] 05/07/2023 Primary osteoarthritis of both knees [M17.0] 05/07/2023 Type 2 diabetes mellitus with hemoglobin A1c goal of less than 7.0% ([facility]) [E11.9] 05/07/2023 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 Acetaminophen 325 MG Oral Tablet (Tylenol) Take 1 Tablet by mouth every 6 hours as needed. Loperamide HCl 2 MG Oral Tablet (Immodium (A-D)) Take 1 Tablet by mouth every 12 hours as needed for Diarrhea. Albuterol Sulfate HFA 108 (90 Base) MCG/ACT Inhalation Aerosol Solution Inhale 2 Puffs by mouth every 8 hours as needed for Shortness of Breath or Wheezing. 54 g 3 Apixaban 5 MG Oral Tablet (Eliquis) Take 1 Tablet by mouth in the morning and 1 Tablet before bedtime. Take 1 tab by mouth twice daily for atrial fibrillation . 180 Tablet 3 Glucose 40 % Oral Gel (Glutose 5) Take 15 g of glucose by mouth as needed for Hypoglycemia (low sugar). Less than 60 three times notify MD 2 Each 3 guaiFENesin 100 MG/5ML Oral Liquid Take 10 mL by mouth every 4 hours as needed for Cough. 120 mL 3 Lidocaine HCl 4 % External Cream (Aspercreme Lidocaine) Apply 1 g topically to affected area in themorning and 1 g in the evening. Apply topically to back at bedtime for back pain. 133 g 3 Fluticasone-Salmeterol 250-50 MCG/ACT Inhalation Aerosol Powder Breath Activated (Advair Diskus) Inhale 1 Puff by mouth in the morning and 1 Puff before bedtime. (Patient taking differently: Inhale 1Puff by mouth as needed.) 60 Each 11 Fluticasone Furoate-Vilanterol 100-25 MCG/ACT Inhalation Aerosol Powder Breath Activated (BREO ellipta) Inhale 1 Puff by mouth in the morning. 28 Each 11 metFORMIN HCl 1000 MG Oral Tablet (Glucophage) TAKE 1 TABLET BY MOUTH EVERY DAY IN THE MORNING (Patient taking differently: Take 0.5 Tablets by mouth in the morning.) 90 Tablet 0 Atorvastatin Calcium 10 MG Oral Tablet (Lipitor) TAKE 1 TABLET BY MOUTH EVERY DAY IN THE AFTERNOON 90 Tablet 3 Metoprolol Succinate ER 25 MG Oral Tablet Extended Release 24 Hour (toPROL XL) TAKE 1 TABLET BY MOUTH EVERY DAY IN THE MORNING 90 Tablet 0 Isosorbide Mononitrate ER 60 MG Oral Tablet Extended Release 24 Hour (Imdur) Take 1 Tablet by mouthin the morning. 90 Tablet 3 Ondansetron HCl 4 MG Oral Tablet (Zofran) TAKE 1 TABLET BY MOUTH EVERY 4 HOURS NEEDED FOR NAUSEAOR VOMITING. 20 Tablet 3 Vitamin B-12 500 MCG Oral Tablet (vitamin B-12) TAKE 1 TABLET BY MOUTH ONCE A WEEK ON THURSDAYS 48 Tablet 1 FreeStyle Lancets Use to test blood sugars once daily 100 Each 3 No current facility-administered medications for this visit. ALLERGIES: Review of patient's allergies indicates: Allergen Reactions Cat Dander Conjunctivitis Social History Socioeconomic History Marital status: Spouse name: Not on file Number of children: Not on file Years of education: Not on file Highest education level: Not on file Occupational History Not on file Tobacco Use Smoking status: Former Types: Cigarettes Passive exposure: Past Smokeless tobacco: Never Substance and Sexual Activity Alcohol use: Not Currently Drug use: Never Sexual activity: Not on file Other Topics Concern Not on file Social History Narrative Not on file Social Needs Financial Resource Strain: Low Risk (05/01/2023) Financial Resource Strain Do you have any trouble paying for your medications, or do you think you might in the future? (Adult - for ages 18 years and over): No Does your family have trouble paying for medicine? (Household - for ages 0-17 years): Not on file Food Insecurity: No Food Insecurity (05/01/2023) Food Insecurity Do you need food for this week? (Adult - for ages 18 years and over): No Are you able to get enough food for your family? (Household - for ages 0-17 years): Not on file Does your family need food this week? (Household - for ages 0-17 years): Not on file Do you always have enough food for your family? (Household - for ages 0-17 years): Not on file Transportation Needs: Unmet Transportation Needs (05/01/2023) Transportation Needs Do you have trouble getting a ride to medical visits or work? (Adult - for ages 18 years and over):Sometimes True Does your family have a hard time getting a ride to doctors visits? (Household - for ages 0-17 years): Not on file Has lack of transportation kept you from medical appointments, meetings, work, or from getting things needed for daily living? Check all that apply. (Adult - for ages 18 years and over): Not on file Do you (or your family) have trouble finding or paying for a ride (transportation)? (Household - for ages 0-17 years): Not on file Social Connections: Socially Integrated (05/01/2023) Social Connections How often do you feel lonely or isolated from those around you? (Adult - for ages 18 years and over): Never Housing Stability: Low Risk (05/01/2023) Housing Stability Do you currently live in a fci or have no steady place to sleep at night? (Adult - for ages 18 years and over): No Do you think you are at risk of becoming homeless? (Adult - for ages 18 years and over): No Does your family worry about paying for your home or becoming homeless? (Household - for ages 0-17 years): Not on file Are you homeless or worried that you might be in the future? (Adult - for ages 18 years and over): Not on file Are you (or your family) homeless or worried that you might be in the future? (Household - for ages0-17 years): Not on file Occupation: HIV risk factors: None FAMILY HISTORY No family history on file. No family status information on file. REVIEW OF SYSTEMS: The patient denies new cardiac, lung, kidney, liver, skin, thyroid, bladder, or digestive problems.The patient also denies acute changes in hearing or vision. Otherwise, all other systems are negative or as noted above. Orthostatic vitals: supine blood pressure 146/82, pulse rate 104, pulse ox 96 percent. Sitting (blood pressure 140/84, pulse 106), standing 1 minute (blood pressure 135/74, pulse 106) 3 minute( bloodpressure 128/73, heart rate 107) The patient is a 88 year old male who is well developed and appears to be their stated age. NEUROLOGIC EXAMINATION: Mental status: Intact higher integrative functions. Orientated to person, place, and time. Recent and remote memory functions are intact. Attention, concentration, language, and fund of knowledge arenormal. Judgment and insight are intact. Mood and affect are normal. Cranial nerves: He still has preserved sense of smell. CN 2: Visual jurado are full to confrontation in both eyes. CN 3-4, 6: Pupils are equal, round,. Extraocular motility is intact in both eyes without nystagmus. CN 5: Facial sensation and jaw strength are normal bilaterally. CN 7: No facial muscle weakness or significant asymmetries. CN 8: Hearing is reduced bilaterally. CN 9-10: Palate is symmetric and moves normally in the midline. CN 11: Sternocleidomastoid and trapezius muscle strength are normal bilaterally. CN 12: Tongue protrudes in midline. No tongue atrophy or fasciculation. No hypophonia or hypomimia. Motor: Normal power, bulk, and tone throughout. No atrophy, fasciculation. No resting tremor seen. Some difficulty with rapid alternating movements in the left hand. Slight tone increase on the left.Subtle pronator drift on the right. Sensory: Endorses reduced sensation in low stocking distribution bilaterally. Coordination: [id number], and rapid alternating movements are normal bilaterally. Fine motor coordination is normal in both hands. Reflexes: Hypoactive yet symmetric in the arms and legs. Plantar responses are flexor. No pathologic reflexes. Gait/station: Antalgic gait on a narrow base but can only walk with the assistance of a cane. Arises from a chair with some difficulty. GENERAL EXAMINATION: Head: Normocephalic without mass, lesion, or tenderness. Neck: No palpable thyromegaly or adenopathy. No audible bruits. Cardiovascular: Regular pulse. Lungs: Clear to auscultation bilaterally. Extremities: No edema, cyanosis, clubbing, or deformities noted. Peripheral pulses are intact. Skin: No neurocutaneous stigmata or rash. Some bruises. I have personally reviewed the cranial MRI with the patient. IMPRESSION: Does not have essential tremors. I doubt that he has Parkinson's disease but rather vascular parkinsonism. He has evidence of an age indeterminate right basal ganglionic lacunar ischemia. He does have slight tone increase in the left upper limb with subtle cogging and some bradykinesia. He has peripheral neuropathy which is most likely from longstanding diabetes. It is possible that he may have autonomic nerve fiber involvement which puts him at risk for orthostatic hypotension. In fact, the episodes he was mentioning occurred while he was standing and subsided when he was sittingdown. Orthostatic vitals today show that tendency towards blood pressure drop with standing for prolongedtime although not more than 20 points systolic. He also did not take the beta-orlando this morning. His neuropathy is painful in his not on any pain modulators at the moment. Reportedly there were some issues with gabapentin due to his renal insufficiency. Tricyclic antidepressants in low dose would be also relatively contraindicated as they would aggravate any orthostatic hypotension tendency. He was not tried on duloxetine yet. RECOMMENDATIONS: At this point, we should order a DaTSCAN to rule out any asymmetric tracer uptake. If there is suchevidence we can trial him on low-dose levodopa. He needs a carotid duplex because of history of right carotid stenosis. Has not had a repeat study for 2 years. He does have peripheral vascular disease. I also recommend a trial of duloxetine for his painful neuropathy. If the shaking episodes resume Irecommend to hold off the beta-orlando and switch him to a different antihypertensive. I spent approximately 60 minutes with this patient greater than half the time was spent reviewing diagnosis, physical exam, imaging, and treatment. Next follow-up in 6 months. Thank-you for the pleasure of this consultation. I will keep you updated on your patient's progress. Constantine Johnson MD Neurology [facility] [address] [facility] [address] Please send copy to requesting physician, Juan Manuel Naik MD Addendum June 20, 2024: I was informed by Radiology that the carotid duplex exam was abnormal showing a critical 70 to 99 percent stenosis of the left carotid, the right side was 50 to 69 percent stenosed. I briefly talked to the patient and his and informed them that I will refer him to Vascular Surgery. MR documented in this encounter Nursing Notes * Ofelia Mcgarry MED ASSIST - 06/13/2024 10:48 AM EST Chief Complaint Patient presents with NEW PATIENT Tremor documented in this encounter Miscellaneous Notes * Addendum Note - Constantine Johnson MD - 06/20/2024 2:19 PM ESTAddended by: CONSTANTINE JOHNSON on: 06/20/2024 02:19 PM Modules accepted: Orders documented in this encounter Plan of Treatment Upcoming Encounters Date Type Department Care Team (Late st Contact Info) Description 09/27/2024 8:00 AM EDT Imaging [facility] 2nd Floor [address]iology[address] [address] 09/27/2024 12:00 PM EDT Imaging [facility] 2nd Floor Cardiology, [address] [address] 12/19/2024 9:20 AM EDT Telemedicine Neurology [address] [place] [address] Constantine Johnson MD [facility] [address] [facility] [place] [address] Pending Results Name Type Priority Associated Diagnoses Date /Time VASC DUPLEX CAROTID BILAT Medical Imaging Routine Asymptomatic stenosis of right carotid artery 06/20/2024 2:04 PM EST Scheduled Orders Name Type Priority Associated Diagnoses Orde r Schedule NM BRAIN SPECT WITH DATSCAN Medical Imaging Routine Vascular parkinsonism (HCC) Expected: 06/20/2024, Expires: 07/14/2025 VASC DUPLEX CAROTID BILAT Medical Imaging Routine Asymptomatic stenosis of right carotid artery Expected: 06/20/2024, Expires: 07/14/2025 Scheduled Referrals Name Type Priority Associated Diagnoses Orde r Schedule VASCULAR SURGERY REFERRAL OP Referral Within 3 days (urgent) 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% Ordered: 06/20/2024 Health Maintenance Due Date Last Done Comments [...] Not on filedocumented as of this encounter Visit Diagnoses Diagnosis Vascular parkinsonism (HCC)- Primary Paralysis agitans DM type 2 with diabetic peripheral neuropathy (HCC) Type II or unspecified type diabetes mellitus with neurological manifestations, not stated as uncontrolled Asymptomatic stenosis of right carotid artery 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
--- OUTSIDE RECORDS SUMMARY | 2024-06-28 03:39 | External Medical Summary | Summary of Care ---
Author Name Unknown Organization [facility] Address [address] [place] [address] Phone [phone] Care Team Providers Care Warehouse Assistant Name Role Phone Juan Manuel Niak MD Primary Care Provider [phone] Encounter Details Date Type Department Care Team (Late st Contact Info) Description 05/04/2024 Result Scan Unspecified Department Colette Means, DO [address] [facility] [place] [address] <No scans attached> Allergies Active Allergy Reactions Criticality Noted Date Comments Cat Dander Conjunctivitis 05/01/2023 documented as of this encounter (statuses as of 05/04/2024) Medications Aspirin 81 MG Oral Tablet Delayed [...] or Wheezing. 54 g 3 3 Active Apixaban 5 MG Oral Tablet (Eliquis) Take 1 Tablet by mouth in the morning and 1 Tablet before bedtime. Take 1 tab by mouth twice daily for atrial fibrillation . 180 Tablet 3 3 Active Glucose 40 % Oral Gel (Glutose 5) Take 15 g of glucose by mouth as needed for Hypoglycemia (low sugar). Less than 60 three times notify MD 2 Each 3 3 Active guaiFENesin 100 MG/5ML Oral Liquid Take 10 mL by mouth every 4 hours as needed for Cough. 120 mL 3 3 Active Ondansetron HCl 4 MG Oral Tablet (Zofran) Take 1 Tablet by mouth every 4 hours as needed for Nausea or Vomiting. 20 Tablet 3 3 Active Lidocaine HCl 4 % External Cream (Aspercreme Lidocaine) Apply 1 g topically to affected area in the morning and 1 g in the evening. Apply topically to back at bedtime for back pain. 133 g 3 3 Active FreeStyle Lancets Use to test blood sugars once daily 100 Each 3 4 Active Isosorbide Mononitrate ER 60 MG Oral Tablet Extended Release 24 Hour (Imdur) Take 1 Tablet by mouth in the morning. 90 Tablet 3 3 Active Metoprolol Succinate ER 25 MG Oral Tablet Extended Release 24 Hour (toPROL XL) Take 1 Tablet by mouth in the morning. 90 Tablet 3 3 Active Fluticasone-Ede meterol 250-50 MCG/ACT Inhalation Aerosol Powder Breath Activated (Advair Diskus) Inhale 1 Puff by mouth in the morning and 1 Puff before bedtime. 60 Each 11 4 Active Fluticasone Furoate-Vilante rol 100-25 MCG/ACT Inhalation Aerosol Powder Breath Activated (BREO ellipta) Inhale 1 Puff by mouth in the morning. 28 Each 11 4 Active Cyanocobalamin 500 MCG Oral Tablet TAKE 1 TABLET BY MOUTH ONCE A WEEK. ON THURSDAYS 12 Tablet 3 4 Active metFORMIN HCl 1000 MG Oral Tablet (Glucophage) TAKE 1 TABLET BY MOUTH EVERY DAY IN THE MORNING 90 Tablet 4 Active Atorvastatin Calcium 10 MG Oral Tablet (Lipitor) TAKE 1 TABLET BY MOUTH EVERY DAY IN THE AFTERNOON 90 Tablet 3 4 Active documented as of this encounter (statuses as of 05/04/2024) Active Problems Problem Noted Date Diagnosed Date [...] as of this encounter (statuses as of 05/04/2024) Immunizations Name Administration Dates Next Due COVID-19 [...] No 05/01/2023 Does the household have a [facility] income? (Household - for ages [...] 06/13/2024 10:40 AM EST Office Visit Neurology [facility] [place] [address] [place] [address] Constant[facility] [address] [facility] [address] Health Maintenance Due Date Last Done Comments Adult Wellness Visit 2002 Zoster Vaccines (2 of 2) 05/08/2020 03/13/2020 Pneumococcal Vaccine: 65+ Years (2 of 2 - PCV) 02/09/2021 [...] Date/Time Associated Diagnosis Comments CARDIOLOGY SCANNED RESULT 05/04/2024 documented in this encounter Results * CARDIOLOGY SCANNED RESULT (05/04/2024) 05/04/2024 Colette Means DO OTHER Final R esult documented in this encounter Care Teams Warehouse Assistant Relationship Specialty Start Date End Date Juan Manuel Naik MD [address] [place] [address] PCP - General Internal Medicine 05/07/23 documented as of this encounter
--- OUTSIDE RECORDS SUMMARY | 2024-06-28 03:39 | External Medical Summary | Summary of Care ---
Author Name Unknown Organization [facility] Address [address] [facility] [place] [address] Phone [phone] Care Team Providers Care Server Systems Administrator Name Role Phone Juan Manuel Fisher MD Primary Care Provider [phone] Reason for Visit * Reason Comments eRx-Medication Refill Encounter Details Date Type Department Care Team (Late st Contact Info) Description 06/10/2024 Refill [facility] [address] [facility] [place] [address] Juan Manuel Fisher MD [address] [place] [address] Allergies Active Allergy Reactions Criticality Noted Date Comments Cat Dander Conjunctivitis 05/01/2023 documented as of this encounter (statuses as of 06/14/2024) Medications Aspirin 81 MG Oral Tablet Delayed [...] THURSDAYS 48 Tablet 1 05/20/20 24 Active Eliquis 5 MG Oral Tablet (Apixaban) TAKE 1 TABLET BY MOUTH IN THE MORNING AND 1 TABLET BEFORE BEDTIME 180 Tablet 1 06/14/19 25 Active Apixaban 5 MG Oral Tablet (Eliquis) Take 1 Tablet by mouth in the morning and 1 Tablet before bedtime. Take 1 tab by mouth twice daily for atrial fibrillation . 180 Tablet 3 05/07/20 23 025 Discontinued documented as of this encounter (statuses as of 06/14/2024) Active Problems Problem Noted Date Diagnosed Date [...] as of this encounter (statuses as of 06/14/2024) Immunizations Name Administration Dates Next Due COVID-19 [...] encounter Miscellaneous Notes * Telephone Encounter - Juan Manuel Fisher MD - 06/14/2024 8:22 AM ESTSigned Prescriptions: Disp Refills Eliquis 5 MG Oral Tablet (Apixaban) 180 Ta*1 Sig: TAKE 1 TABLET BY MOUTH IN THE MORNING AND 1 TABLET BEFORE BEDTIME Authorizing Provider: JUAN MANUEL FISHER * Telephone Encounter - Alondra Rosa [facility] - 06/10/2024 10:17 PM EST Pending Prescriptions: Disp Refills Eliquis 5 MG Oral Tablet (Apixaban) 180 Ta*1 Sig: TAKE 1 TABLET BY MOUTH IN THE MORNING AND 1 TABLET BEFORE BEDTIME * Telephone Encounter - Alondra Rosa, [facility] - 06/10/2024 10:16 PM EST Unable to authorize medication refills for pended medication(s) at this time. Part of the protocol criteria used for refill authorization was not satisfied. Patient needs hgb, PLT WNL. Please approveif appropriate. Did you pend patient's preferred pharmacy and medication before forwarding?yes Pharmacy: [id number] [id number] Pending Prescriptions: Disp Refills Eliquis 5 MG Oral Tablet (Apixaban) [Phar*180 Ta*1 Sig: TAKE 1 TABLET BY MOUTH IN THE MORNING AND 1 TABLET BEFORE BEDTIME Last Visit: Visit date not found (in office), Visit date not found (telemedicine) Next Visit: Visit date not found If no future appointments scheduled, and last appointment is greater than a year ago, please schedule patient for a follow-up appointment Last date the medication was ordered: 05/07/23 Is this request for a controlled substance?No Urine Drug Screen:No results found for this or any previous visit. Patient Phone Numbers Labs: Lab Results Component Value Date/Time CREAT 1.4 (H) 11/04/2023 03:26 PM POTASSIUM 5.0 11/04/2023 03:26 PM TSH 3.71 11/04/2023 03:26 PM LDL 53 06/16/2023 09:15 AM LDLCALC 69 04/11/2020 07:09 AM ALT 16 11/04/2023 03:26 PM HGBA1C 5.6 08/17/2023 09:53 AM HGBA1C 6.2 (H) 07/01/2022 08:22 AM documented in this encounter Plan of Treatment Upcoming Encounters Date Type Department Care Team (Late st Contact Info) Description 06/20/2024 1:00 PM EST Imaging Vascular Lab, [facility] [place] [address] [facility] [place] [address] 12/19/2024 9:20 AM EDT Telemedicine Neurology [address] [place] [address] Constantine Lezama MD [address] [facility] [place] [address] Health Maintenance Due [...] filedocumented as of this encounter Care Teams Server Systems Administrator Relationship Specialty Start Date End Date Juan Manuel Fisher MD [facility] [place] [address] PCP - General Internal Medicine 06/13/24 documented as of this encounter
--- OUTSIDE RECORDS SUMMARY | 2024-06-28 03:39 | External Medical Summary | Summary of Care ---
Author Name Unknown Organization [facility] Address [address] [facility] [place] [address] Phone [phone] Care Team Providers Care Grocery Team Member Name Role Phone Juan Manuel Naik MD Primary Care Provider [phone] Encounter Details Date Type Department Care Team (Late st Contact Info) Description 04/12/2024 Orders Only PATIENT PORTAL DO NOT DELETE THIS DEPT USED BY TH[place] HAAS [id number] Allergies Active Allergy Reactions Criticality Noted Date Comments Cat Dander Conjunctivitis 05/01/2023 documented as of this encounter (statuses as of 04/12/2024) Medications Aspirin 81 MG Oral Tablet Delayed [...] Wheezing. 54 g 3 05/07/20 23 Active Apixaban 5 MG Oral Tablet (Eliquis) Take 1 Tablet by mouth in the morning and 1 Tablet before bedtime. Take 1 tab by mouth twice daily for atrial fibrillation . 180 Tablet 3 05/07/20 23 Active Atorvastatin Calcium 10 MG Oral Tablet (Lipitor) Take 1 Tablet by mouth every afternoon. Take 1 tab by mouth every evening for hyperlipidemia 90 Tablet 3 05/07/20 23 Active Glucose 40 % Oral Gel (Glutose 5) Take 15 g of glucose by mouth as needed for Hypoglycemia (low sugar). Less than 60 three times notify MD 2 Each 3 05/07/20 Active guaiFENesin 100 MG/5ML Oral Liquid Take 10 mL by mouth every 4 hours as needed for Cough. 120 mL 3 05/07/20 Active Ondansetron HCl 4 MG Oral Tablet (Zofran) Take 1 Tablet by mouth every 4 hours as needed for Nausea or Vomiting. 20 Tablet 3 05/07/20 23 Active Lidocaine HCl 4 % External Cream (Aspercreme Lidocaine) Apply 1 g topically to affected area in the morning and 1 g in the evening. Apply topically to back at bedtime for back pain. 133 g 3 05/14/20 23 Active FreeStyle Lancets Use to test blood sugars once daily 100 Each 3 05/26/19 24 Active Isosorbide Mononitrate ER 60 MG Oral Tablet Extended Release 24 Hour (Imdur) Take 1 Tablet by mouth in the morning. 90 Tablet 3 05/21/20 23 Active Metoprolol Succinate ER 25 MG Oral Tablet Extended Release 24 Hour (toPROL XL) Take 1 Tablet by mouth in the morning. 90 Tablet 3 05/21/20 23 Active Fluticasone-Ede meterol 250-50 MCG/ACT Inhalation Aerosol Powder Breath Activated (Advair Diskus) Inhale 1 Puff by mouth in the morning and 1 Puff before bedtime. 60 Each 11 08/11/19 24 Active Fluticasone Furoate-Vilante rol 100-25 MCG/ACT Inhalation Aerosol Powder Breath Activated (BREO ellipta) Inhale 1 Puff by mouth in the morning. 28 Each 08/13/19 24 Active Cyanocobalamin 500 MCG Oral Tablet TAKE 1 TABLET BY MOUTH ONCE A WEEK. ON THURSDAYS 12 Tablet 3 02/18/20 24 Active metFORMIN HCl 1000 MG Oral Tablet (Glucophage) TAKE 1 TABLET BY MOUTH EVERY DAY IN THE MORNING 90 Tablet 04/09/20 24 Active documented as of this encounter (statuses as of 04/12/2024) Active Problems Problem Noted Date Diagnosed Date [...] as of this encounter (statuses as of 04/12/2024) Immunizations Name Administration Dates Next Due COVID-19 [...] 06/13/2024 10:40 AM EST Office Visit Neurology [facility] [address] [place] [address] Constantine Lezama MD [address] [place] [address] Health Maintenance Due Date Last Done [...] filedocumented as of this encounter Care Teams Grocery Team Member Relationship Specialty Start Date End Date Juan Manuel Naik MD [address] [facility] [place] [address] PCP - General Internal Medicine 05/07/23 documented as of this encounter
--- OUTSIDE RECORDS SUMMARY | 2024-06-28 03:39 | External Medical Summary | Summary of Care ---
Author Name Unknown Organization [facility] Address [address] [place] [address] Phone [phone] Care Team Providers Care News Correspondent Name Role Phone Juan Manuel Naik MD Primary Care Provider [phone] Reason for Referral * Precert (Within 10 days (routine)) - Authorized Specialty Diagnoses / Procedures Referred By Italia zaman Referred To Contact Radiology Diagnoses Vascular parkinsonism (HCC) Procedures NM BRAIN SPECT WITH DATSCAN Constantine Lezama MD [address] [place] [address] Phone: tel: fax: Referral ID Status Reason Start Date Expiration Date V isits Requested Visits Authorized [id number] Authorized 06/20/2024 999 [id number] Reason for Visit * Reason Comments NEW PATIENT Tremor * Evaluate & Treat - Unlimited Visits (Within 10 days (routine)) - Closed Specialty Diagnoses / Procedures Referred By Italia zaman Referred To Contact Neurology Diagnoses Tremor Jonah Brock MD Phone: tel: fax: Referral ID Status Reason Start Date Expiration Date V isits Requested Visits Authorized [id number] Closed Specialty Services Required 11/04/2023 999 [id number] Encounter Details Date Type Department Care Team (Late st Contact Info) Description 06/13/2024 10:40 AM EST Office [facility] [place] [address] [facility] [address] Constantine Lezama MD [address] [place] [address] Vascular parkinsonism (HCC)*; DM type 2 with diabetic peripheral neuropathy (HCC); Asymptomatic stenosis of right carotid artery Allergies Active Allergy Reactions Criticality Noted Date Comments Cat Dander Conjunctivitis 05/01/2023 documented as of this encounter (statuses as of 06/13/2024) Medications Aspirin 81 MG Oral Tablet Delayed [...] ON THURSDAYS 48 Tablet 1 4 Active documented as of this encounter (statuses as of 06/13/2024) Active Problems Problem Noted Date Diagnosed Date [...] as of this encounter (statuses as of 06/13/2024) Immunizations Name Administration Dates Next Due COVID-19 [...] for ages 0-17 years) Not on file 12 /12/2022 Food Insecurity Answer Date Recorded Do you [...] in this encounter Progress Notes * Constantine Lezama MD - 06/13/2024 10:52 AM EST 06/13/2024 [...] is on aspirin and lipid-lowering agents. 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 He was in [facility] for several years. 1953-. Has neck pain. He admitted that he did not take his metoprolol this morning. 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 Coordination: [id number], and rapid alternating movements are normal bilaterally. [...] you updated on your patient's progress. Constantine Lezama MD Neurology [facility] [address] [facility] [address] Please send copy to requesting physician, Juan Manuel Naik MD documented in this encounter Nursing Notes * Ofelia Mcgarry MED ASSIST - 06/13/2024 10:48 AM EST Chief Complaint Patient presents with NEW PATIENT Tremor documented in this encounter Plan of Treatment Upcoming Encounters Date Type Department Care Team (Late st Contact Info) Description 06/20/2024 1:00 PM EST Imaging Vascular Lab, [facility] [place] [address] [facility] [place] [address] 12/19/2024 9:20 AM EDT Telemedicine Neurology [address] [place] [address] [place] [address] Constantine Lezama MD [address] [place] [address] Scheduled Orders Name Type Priority Associated Diagnoses Orde r Schedule NM BRAIN SPECT WITH DATSCAN Medical Imaging Routine Vascular parkinsonism (HCC) Expected: 06/20/2024, Expires: 07/14/2025 VASC DUPLEX CAROTID BILAT Medical Imaging Routine Asymptomatic stenosis of right carotid artery Expected: 06/20/2024, Expires: 07/14/2025 Health Maintenance Due Date Last Done Comments [...] uncontrolled Asymptomatic stenosis of right carotid artery documented in this encounter Care Teams News Correspondent Relationship Specialty Start Date End Date Juan Manuel Naik MD [address] [place] [address] PCP - General Internal Medicine 06/13/24 documented as of this encounter
--- OUTSIDE RECORDS SUMMARY | 2024-06-28 03:39 | External Medical Summary | Summary of Care ---
Author Name Unknown Organization [facility] Address [address] [facility] [address] Phone [phone] Care Team Providers Care Purchase Analyst Name Role Phone Juan Manuel Naik MD Primary Care Provider [phone] Reason for Visit * Reason Comments eRx-Medication Refill Encounter Details Date Type Department Care Team (Late st Contact Info) Description 05/12/2024 Refill Cardiology, [facility] [address] [place] [address] Krystle Najera CRNP [address] [place] [address] Allergies Active Allergy Reactions Criticality Noted Date Comments Cat Dander Conjunctivitis 05/01/2023 documented as of this encounter (statuses as of 05/13/2024) Medications Aspirin 81 MG Oral Tablet Delayed [...] atrial fibrillation . 180 Tablet 3 05/07/20 Active Glucose 40 % Oral Gel (Glutose 5) Take 15 g of glucose by mouth as needed for Hypoglycemia (low sugar). Less than 60 three times notify MD 2 Each 3 05/07/20 Active guaiFENesin 100 MG/5ML Oral Liquid Take 10 mL by mouth every 4 hours as needed for Cough. 120 mL 3 05/07/20 23 Active Ondansetron HCl 4 MG Oral Tablet [...] test blood sugars once daily 100 Each 05/26/19 24 Active Fluticasone-Sa lmeterol 250-50 MCG/ACT Inhalation Aerosol Powder Breath Activated (Advair Diskus) Inhale 1 Puff by mouth in the morning and 1 Puff before bedtime. 60 Each 08/11/19 24 Active Fluticasone Furoate-Vilant sid 100-25 MCG/ACT Inhalation Aerosol [...] THE MORNING 90 Tablet 04/09/20 24 Active Atorvastatin Calcium 10 MG Oral Tablet (Lipitor) TAKE 1 TABLET BY MOUTH EVERY DAY IN THE AFTERNOON 90 Tablet 3 04/28/20 24 Active Isosorbide Mononitrate ER 60 MG Oral Tablet Extended Release 24 Hour (Imdur) Take 1 Tablet by mouth in the morning. 90 Tablet 3 05/13/20 24 Active Isosorbide Mononitrate ER 60 MG Oral Tablet Extended Release 24 Hour (Imdur) Take 1 Tablet by mouth in the morning. 90 Tablet 3 05/21/20 23 2023 Discontinued(R efill) Metoprolol Succinate ER 25 MG Oral Tablet Extended Release 24 Hour (toPROL XL) Take 1 Tablet by mouth in the morning. 90 Tablet 3 05/21/20 23 2023 Discontinued documented as of this encounter (statuses as of 05/13/2024) Active Problems Problem Noted Date Diagnosed Date [...] as of this encounter (statuses as of 05/13/2024) Immunizations Name Administration Dates Next Due COVID-19 [...] encounter Miscellaneous Notes * Telephone Encounter - Oanh Mix CRNP - 05/13/2024 1:15 PM EST Signed Prescriptions: Disp Refills Isosorbide Mononitrate ER 60 MG Oral Table*90 Tab*3 Sig: Take 1 Tablet by mouth in the morning. Authorizing Provider: OANH MIX Refused Prescriptions: Disp Refills Isosorbide Mononitrate ER 30 MG Oral Table*90 Tab*3 Sig: TAKE 1 TABLET BY MOUTH EVERY DAY IN THE MORNING Refused By: MAU GARAY Reas on for Refusal: Refill Not Appropriate Reason for Refusal Comment: wrong dose * Telephone Encounter - Krystle Najera CRNP - 05/13/2024 6:58 AM EST Pending Prescriptions: Disp Refills Isosorbide Mononitrate ER 60 MG Oral Table*90 Tab*3 Sig: Take 1 Tablet by mouth in the morning. Refused Prescriptions: Disp Refills Isosorbide Mononitrate ER 30 MG Oral Table*90 Tab*3 Sig: TAKE 1 TABLET BY MOUTH EVERY DAY IN THE MORNING Refused By: MAU GARAY Reason for Refusal: Refill Not Appropriate Reason f or Refusal Comment: wrong dose * Telephone Encounter - Mau Garay [facility] - 05/13/2024 4:35 AM ESTPending Prescriptions: Disp Refills Isosorbide Mononitrate ER 60 MG Oral Table*90 Tab*3 Sig: Take 1 Tablet by mouth in the morning. Refused Prescriptions: Disp Refills Isosorbide Mononitrate ER 30 MG Oral Table*90 Tab*3 Sig: TAKE 1 TABLET BY MOUTH EVERY DAY IN THE MORNING Refused By: MAU GARAY Reason for Refusal: Refill Not Appropriate Reason f or Refusal Comment: wrong dose * Telephone Encounter - Mau Garay RPh - 05/13/2024 4:34 AM EST Did you pend patient's preferred pharmacy and medication before forwarding?yes Pharmacy: [id number] [address] Pending Prescriptions: Disp Refills Isosorbide Mononitrate ER 60 MG Oral Tabl*90 Tab*3 Sig: Take 1 Tablet by mouth in the morning. Refused Prescriptions: Disp Refills Isosorbide Mononitrate ER 30 MG Oral Table*90 Tab*3 Sig: TAKE 1 TABLET BY MOUTH EVERY DAY IN THE MORNING Refused By: MAU GARAY Reason for Refusal: Refill Not Appropriate Reason for Refusal Comment: wrong dose Last Visit: 05/21/2023 (in office), Visit date not found (telemedicine) Next Visit: Visit date not found If no future appointments scheduled, and last appointment is greater than a year ago, please schedule patient for a follow-up appointment Last date the medication was ordered: 05/21/23 Is this request for a controlled substance?No [...] AM EST Office Visit Neurology [facility] [place] [address] [place] [address] Constantine Lezama MD [address] [place] [address] Health Maintenance Due Date Last Done Comments [...] filedocumented as of this encounter Care Teams Purchase Analyst Relationship Specialty Start Date End Date Juan Manuel Naik MD PCP - General Internal Medicine 05/07/23 documented as of this encounter
--- OUTSIDE RECORDS SUMMARY | 2024-06-28 03:39 | External Medical Summary | Summary of Care ---
Author Name Unknown Organization [facility] Address [address] [facility] [place] [address] Phone [phone] Care Team Providers Care Language Tutor Name Role Phone Juan Manuel Naik MD Primary Care Provider [phone] Encounter Details Date Type Department Care Team (Late st Contact Info) Description 06/14/2024 Telephone [facility] [address] [place] [address] Juan Manuel Naik MD [address] [facility] [place], [place] [id number] Allergies Active Allergy Reactions Criticality Noted Date [...] Notes * Telephone Encounter - Juan Manuel Naik MD - 06/14/2024 8:21 AM EST Please advise pt to f/u with me or any provider for routine check up documented in this encounter Plan of Treatment Upcoming Encounters Date Type Department Care Team (Late st Contact Info) Description 06/20/2024 1:00 PM EST Imaging Vascular Lab, [facility] [place] [address] [facility] [place] [address] 12/19/2024 9:20 AM EDT Telemedicine Neurology [address] [place] [phone] Constantine Lezama MD [address] [place] [address] Health Maintenance Due Date [...] filedocumented as of this encounter Care Teams Language Tutor Relationship Specialty Start Date End Date Juan Manuel Naik MD [address] [place] [address] PCP - General Internal Medicine 06/13/24 documented as of this encounter
--- OUTSIDE RECORDS SUMMARY | 2024-06-28 03:39 | External Medical Summary | Summary of Care ---
Author Name Unknown Organization [facility] Address [address] [place] [address] Phone [phone] Care Team Providers Care Field Coordinator Name Role Phone Juan Manuel Naik MD Primary Care Provider [phone] Reason for Visit * Reason Onset Date Comments Appointment 06/13/2024 NucMed Encounter Details Date Type Department Care Team ([facility] st Contact Info) Description 06/13/2024 Telephone Neurology, [place] [address] [place] [address] Constantine Lezama MD [address] [place] [address] Appointment (NucMed) Allergies Active Allergy Reactions Criticality Noted Date [...] encounter Miscellaneous Notes * Telephone Encounter - Justyna Crews OSA - 06/13/2024 1:58 PM EST 06/13/24 EMAIL SENT FOR TRIAGE KF * Telephone Encounter - Xochilt Dobbs OSA - 06/13/2024 1:50 PM EST Please call pt to schedule a datscan documented in this encounter Plan of Treatment Upcoming Encounters Date Type Department Care Team (Late st Contact Info) Description 06/20/2024 1:00 PM EST Imaging Vascular Lab, [facility] 2nd Floor, [address] [place] [address] 12/19/2024 9:20 AM EDT Telemedicine Neurology [address] [place] [address] Constantine Lezama MD [address] [facility] [place] [address] Health Maintenance Due [...] filedocumented as of this encounter Care Teams Field Coordinator Relationship Specialty Start Date End Date Juan Manuel Naik MD [address] [facility] [place] [address] PCP - General Internal Medicine 06/13/24 documented as of this encounter
--- OUTSIDE RECORDS SUMMARY | 2024-06-28 03:39 | External Medical Summary | Summary of Care ---
Author Name Unknown Organization [facility] Address [address] [facility] [address] Phone [phone] Care Team Providers Care Traffic Circuit Engineer Name Role Phone Juan Manuel Fisher MD Primary Care Provider [phone] Reason for Visit * Reason Comments eRx-Medication Refill Encounter Details Date Type Department Care Team (Late st Contact Info) Description 05/19/2024 Refill [facility] [address] [phone] Juan Manuel Fisher MD [address] [place] [place] [address] Allergies Active Allergy Reactions Criticality Noted Date Comments Cat Dander Conjunctivitis 05/01/2023 documented as of this encounter (statuses as of 05/20/2024) Medications Aspirin 81 MG Oral Tablet Delayed [...] . 180 Tablet 3 05/07/20 23 Active Glucose 40 [...] THURSDAYS 48 Tablet 1 05/20/20 24 Active Ondansetron HCl 4 MG Oral Tablet (Zofran) Take 1 Tablet by mouth every 4 hours as needed for Nausea or Vomiting. 20 Tablet 3 05/07/20 23 024 Discontinued Cyanocobalamin 500 MCG Oral Tablet TAKE 1 TABLET BY MOUTH ONCE A WEEK. ON THURSDAYS 12 Tablet 3 02/18/20 24 024 Discontinued documented as of this encounter (statuses as of 05/20/2024) Active Problems Problem Noted Date Diagnosed Date [...] as of this encounter (statuses as of 05/20/2024) Immunizations Name Administration Dates Next Due COVID-19 [...] No 05/01/2023 Does the household have a [facility] source of income? (Household - for ages [...] Encounter - Juan Manuel Fisher MD - 05/20/2024 11:44 AM ESTSigned Prescriptions: Disp Refills Ondansetron HCl 4 MG Oral Tablet (Zofran) 20 Tab*3 Sig: TAKE 1 TABLET BY MOUTH EVERY 4 HOURS NEEDED FOR NAUSEA OR VOMITING. Authorizing Provider: JUAN MANUEL FISHER Vitamin B-12 500 MCG Oral Tablet (vitamin *48 Tab*1 Sig: TAKE 1 TABLET BY MOUTH ONCE A WEEK ON THURSDAYS Authorizing Provider: JUAN MANUEL FISHER * Telephone Encounter - Guille Mcmanus LPN - 05/20/2024 9:39 AM ESTPending Prescriptions: Disp Refills Ondansetron HCl 4 MG Oral Tablet [Pharmacy*20 Tab*3 Sig: Take 1Tablet by mouth every 4 hours as needed for Nausea or Vomiting. Vitamin B-12 500 MCG Oral Tablet [Pharmacy*48 Tab* Sig: TAKE 1 TABLET BY MOUTH ONCE A WEEK ON THURSDAYS documented in this encounter Plan of Treatment Upcoming Encounters Date Type Department Care Team (Late st Contact Info) Description 06/13/2024 10:40 AM EST Office Visit Neurology [facility] Scales [place] [address] [facility] [place] [address] Constantine Lezama MD [address] [place] [address] Health Maintenance Due Date Last [...] filedocumented as of this encounter Care Teams Traffic Circuit Engineer Relationship Specialty Start Date End Date Juan Manuel Fisher MD PCP - General Internal Medicine 05/07/23 documented as of this encounter
--- OUTSIDE RECORDS SUMMARY | 2024-06-28 03:39 | External Medical Summary | Summary of Care ---
Author Name Unknown Organization [facility] Address [address] [place] [facility] [place] [address] Phone [phone] Care Team Providers Care Technical Writer And Editor Name Role Phone Juan Manuel Naik MD Primary Care Provider Reason for Visit * Reason Comments eRx-Medication Refill Encounter Details Date Type Department Care Team (Late st Contact Info) Description 04/27/[address] [address] Juan Manuel Naik MD [address] [place], [place] [id number] Allergies Active Allergy Reactions Criticality Noted Date Comments Cat Dander Conjunctivitis 05/01/2023 documented as of this encounter (statuses as of 04/28/2024) Medications Aspirin 81 MG Oral Tablet Delayed [...] of Breath or Wheezing. 54 g 3 023 Active Apixaban 5 MG Oral Tablet (Eliquis) Take 1 Tablet by mouth in the morning and 1 Tablet before bedtime. Take 1 tab by mouth twice daily for atrial fibrillation . 180 Tablet 3 Active Glucose 40 % Oral Gel (Glutose 5) Take 15 g of glucose by mouth as needed for Hypoglycemia (low sugar). Less than 60 three times notify MD 2 Each 3 Active guaiFENesin 100 MG/5ML Oral Liquid Take 10 mL by mouth every 4 hours as needed for Cough. 120 mL 3 023 Active Ondansetron HCl 4 MG Oral Tablet (Zofran) Take 1 Tablet by mouth every 4 hours as needed for Nausea or Vomiting. 20 Tablet 3 Active Lidocaine HCl 4 % External Cream (Aspercreme Lidocaine) Apply 1 g topically to affected area in the morning and 1 g in the evening. Apply topically to back at bedtime for back pain. 133 g 3 023 Active FreeStyle Lancets Use to test blood sugars once daily 100 Each 3 024 Active Isosorbide Mononitrate ER 60 MG Oral Tablet Extended Release 24 Hour (Imdur) Take 1 Tablet by mouth in the morning. 90 Tablet 3 023 Active Metoprolol Succinate ER 25 MG Oral Tablet Extended Release 24 Hour (toPROL XL) Take 1 Tablet by mouth in the morning. 90 Tablet 3 023 Active Fluticasone-Sa lmeterol 250-50 MCG/ACT Inhalation Aerosol Powder Breath Activated (Advair Diskus) Inhale 1 Puff by mouth in the morning and 1 Puff before bedtime. 60 Each 024 Active Fluticasone Furoate-Vilant sid 100-25 MCG/ACT Inhalation Aerosol Powder Breath Activated (BREO ellipta) Inhale 1 Puff by mouth in the morning. 28 Each 024 Active Cyanocobalamin 500 MCG Oral Tablet TAKE 1 TABLET BY MOUTH ONCE A WEEK. ON THURSDAYS 12 Tablet 3 024 Active metFORMIN HCl 1000 MG Oral Tablet (Glucophage) TAKE 1 TABLET BY MOUTH EVERY DAY IN THE MORNING 90 Tablet Active Atorvastatin Calcium 10 MG Oral Tablet (Lipitor) TAKE 1 TABLET BY MOUTH EVERY DAY IN THE AFTERNOON 90 Tablet 3 024 Active Atorvastatin Calcium 10 MG Oral Tablet (Lipitor) Take 1 Tablet by mouth every afternoon. Take 1 tab by mouth every evening for hyperlipidemia 90 Tablet 3 023 2023 Discontinued documented as of this encounter (statuses as of 04/28/2024) Active Problems Problem Noted Date Diagnosed Date [...] as of this encounter (statuses as of 04/28/2024) Immunizations Name Administration Dates Next Due COVID-19 [...] encounter Miscellaneous Notes * Telephone Encounter - Aysha Amaral [facility] - 04/28/2024 11:57 AM EST Signed Prescriptions: Disp Refills Atorvastatin Calcium 10 MG Oral Tablet (Li*90 Tab*3 Sig: TAKE 1 TABLET BY MOUTH EVERY DAY IN THE AFTERNOONAuthorizing Provider: Rommel NAIK User: AYSHA AMARAL documented in this encounter Plan of Treatment Upcoming Encounters Date Type Department Care Team (Late st Contact Info) Description 06/13/2024 10:40 AM EST Office Visit Neurology [facility] [address] [place] [address] Constantine Lezama MD [address] [place] [address] Health Maintenance Due Date Last [...] filedocumented as of this encounter Care Teams Technical Writer And Editor Relationship Specialty Start Date End Date Juan Manuel Naik MD [address] [place] [address] PCP - General Internal Medicine 05/07/23 documented as of this encounter
--- OUTSIDE RECORDS SUMMARY | 2024-06-28 03:39 | External Medical Summary | Summary of Care ---
Author Name Unknown Organization [facility] Address [address] [facility] [place] [address] Phone [phone] Care Team Providers Care Time Clock Mechanic Name Role Phone Juan Manuel Naik MD Primary Care Provider [phone] Encounter Details Date Type Department Care Team (Late st Contact Info) Description 06/14/2024 Telephone [facility] [address] [place] [address] Juan Manuel Naik MD [address] [facility] [place], [place] [id number] Allergies Active Allergy Reactions Criticality Noted Date [...] 06/20/2024 1:00 PM EST Imaging Vascular Lab, [facility] 2nd [facility] [place] [address] [facility] [place] [address] 12/19/2024 9:20 AM EDT Telemedicine Neurology [place] [...] filedocumented as of this encounter Care Teams Time Clock Mechanic Relationship Specialty Start Date End Date Juan Manuel Naik MD [address] [place] [address] PCP - General Internal Medicine 06/13/24 documented as of this encounter
--- OUTSIDE RECORDS SUMMARY | 2024-06-28 03:39 | External Medical Summary | Summary of Care ---
Author Name Unknown Organization [facility] Address [address] [place] [address] Phone [phone] Care Team Providers Care Network Operations Analyst Name Role Phone Juan Manuel Naik MD Primary Care Provider [phone] Reason for Visit * Reason Onset Date Comments Appointment 06/13/2024 NucMed Encounter Details Date Type Department Care Team ([facility] st Contact Info) Description 06/13/2024 Telephone Neurology, [place] [address] [place] [address] Constantine Lezama MD [address] [place] [address] Appointment (NucMed) Allergies Active Allergy [...] 06/20/2024 1:00 PM EST Imaging Vascular Lab, [facility] 2nd Floor, [address] [place] [address] 12/19/2024 9:20 AM EDT Telemedicine Neurology [address] [place] [phone] Constantine Lezama MD [address] [facility] [place] [address] Health Maintenance Due [...] filedocumented as of this encounter Care Teams Network Operations Analyst Relationship Specialty Start Date End Date Juan Manuel Naik MD [address] [facility] [place] [address] PCP - General Internal Medicine 06/13/24 documented as of this encounter
--- OUTSIDE RECORDS SUMMARY | 2024-06-28 03:39 | External Medical Summary | Summary of Care ---
Author Name Unknown Organization [facility] Address [address] [place] [address] Phone [phone] Care Team Providers Care Emergency Medical Technician Basic Name Role Phone Juan Manuel Naik MD Primary Care Provider [phone] Reason for Visit * Reason Onset Date Comments Appointment 06/13/2024 NucMed Encounter Details Date Type Department Care Team ([facility] st Contact Info) Description 06/13/2024 Telephone Neurology, [place] [address] [place] [address] Constantine Lezama MD [address] [place] [address] Appointment (NucMed) Allergies Active Allergy [...] 06/20/2024 1:00 PM EST Imaging Vascular Lab, [facility] 2nd Floor, [address] [place] [address] 12/19/2024 9:20 AM EDT Telemedicine Neurology [address] [place] [phone] Constantine Lezama MD [address] [facility] [place] [address] Health Maintenance Due [...] filedocumented as of this encounter Care Teams Emergency Medical Technician Basic Relationship Specialty Start Date End Date Juan Manuel Naik MD [address] [facility] [place] [address] PCP - General Internal Medicine 06/13/24 documented as of this encounter
--- OUTSIDE RECORDS SUMMARY | 2024-06-28 03:39 | External Medical Summary | Summary of Care ---
Author Name Unknown Organization [facility] Address [address] [facility] [address] Phone [phone] Care Team Providers Care Vending Machine Refiller Name Role Phone Juan Manuel Naik MD Primary Care Provider [phone] Reason for Visit * Reason Onset Date Comments Fax 05/10/2024 [facility]ACE Encounter Details Date Type Department Care Team (Late st Contact Info) Description 05/10/[address] [facility] [place] [address] [place] [address] Juan Manuel Naik MD [address] [place] [address] Fax (PACE ) Allergies Active Allergy Reactions Criticality Noted Date Comments Cat Dander Conjunctivitis 05/01/2023 documented as of this encounter (statuses as of 05/10/2024) Medications Aspirin 81 MG Oral Tablet Delayed [...] as of this encounter (statuses as of 05/10/2024) Active Problems Problem Noted Date Diagnosed Date [...] as of this encounter (statuses as of 05/10/2024) Immunizations Name Administration Dates Next Due COVID-19 [...] encounter Miscellaneous Notes * Telephone Encounter - Shila Benitez LPN - 05/10/2024 12:38 PM EST Received Fax for BF[facility]OVIDERS: Dr. Juan Manuel Naik ORDER received from [facility] and FAXED documented in this encounter Plan of Treatment Upcoming Encounters Date Type Department Care Team (Late st Contact Info) Description 06/13/2024 10:40 AM EST Office Visit Neurology [facility] Scales [place] [address] [place] [address] Constantine Lezama MD [address] [place] [address] Health Maintenance Due Date Last Done Comments [...] filedocumented as of this encounter Care Teams Vending Machine Refiller Relationship Specialty Start Date End Date Juan Manuel Naik MD [address] [place] [address] PCP - General Internal Medicine 05/07/23 documented as of this encounter
--- OUTSIDE RECORDS SUMMARY | 2024-06-28 03:39 | External Medical Summary | Summary of Care ---
Author Name Unknown Organization [facility] Address [address] [place] [address] Phone [phone] Care Team Providers Care Baggage Handling Supervisor Name Role Phone Juan Manuel Naik MD Primary Care Provider [phone] Reason for Visit * Reason Onset Date Comments Appointment 06/13/2024 NucMed Encounter Details Date Type Department Care Team ([facility] st Contact Info) Description 06/13/2024 Telephone Neurology, [place] [address] [place] [address] Constantine Lezama MD [address] [place] [address] Appointment (NucMed) Allergies Active Allergy [...] for Cough. 120 mL 3 05/07/20 Active Lidocaine HCl 4 % External Cream [...] Telephone Encounter - Justyna Crews OSA - 06/14/2024 12:45 PM EST PT IS SCHEDULED ON 09/27/24 * Telephone Encounter - Justyna Crews OSA - 06/13/2024 1:58 PM EST 06/13/24 EMAIL SENT FOR TRIAGE KF * Telephone Encounter - Xochilt Dobbs OSA - 06/13/2024 1:50 PM EST Please call pt to schedule a datscan documented in this encounter Plan of Treatment Upcoming Encounters Date Type Department Care Team (Late st Contact Info) Description 06/20/2024 1:00 PM EST Imaging Vascular Lab, [address], [address] [place] [address] 09/27/2024 8:00 AM EDT Imaging [address] Cardiology, [address] [place] [address] 09/27/2024 12:00 PM EDT Imaging [address] Cardiology, [address] [place] [address] 12/19/2024 9:20 AM EDT Telemedicine Neurology [address] [place] [phone] Constantine Lezama MD [address] [facility] [place] [address] Health Maintenance Due [...] filedocumented as of this encounter Care Teams Baggage Handling Supervisor Relationship Specialty Start Date End Date Juan Manuel Naik MD [address] [place] [address] PCP - General Internal Medicine 06/13/24 documented as of this encounter
--- OUTSIDE RECORDS SUMMARY | 2024-06-28 03:39 | External Medical Summary | Summary of Care ---
Author Name Unknown Organization [facility] Address [address] [facility] [address] Phone [phone] Care Team Providers Care Dural Mechanic Name Role Phone Juan Manuel Naik MD Primary Care Provider [phone] Reason for Visit * Reason Comments eRx-Medication Refill Encounter Details Date Type Department Care Team (Late st Contact Info) Description 05/11/2024 Refill Cardiology, [facility] [address] [place] [address] Krystle Najera CRNP [address] [place] [address] Allergies Active Allergy Reactions Criticality Noted Date [...] Nausea or Vomiting. 20 Tablet 3 05/07/20 Active Lidocaine HCl 4 % [...] 1:15 PM EST Signed Prescriptions: Disp Refills Metoprolol Succinate ER 25 MG Oral Tablet *90 Tab*0 Sig: TAKE 1 TABLET BY MOUTH EVERY DAY IN THE MORNING Authorizing Provider: OANH MIX * Telephone Encounter - [employer], [facility] - 05/13/2024 11:10 AM EST Pending Prescriptions: Disp Refills Metoprolol Succinate ER 25 MG Oral Tablet *90 Tab*0 Sig: TAKE 1 TABLET BY MOUTH EVERY DAY IN THE MORNING * Telephone Encounter - Negrita Mckinnon, member of parliament - 05/12/2024 1:36 PM EST Pending Prescriptions: Disp Refills Metoprolol Succinate ER 25 MG Oral Tablet *90 Tab*0 Sig: TAKE 1 TABLET BY MOUTH EVERY DAY IN THE MORNING * Telephone Encounter - Negrita Mckinnon, member of parliament - 05/12/2024 1:34 PM EST Received message from [facility] regarding patient needing an appointment. Call Placed pt can not make appt he has to talk to his daughter and he will call us back Thank you for your assistance Negrita Mckinnon Driver Supervisor II [facility] 05/12/2024,1:34 PM * Telephone Encounter - Adonis Tristan [facility] - 05/12/2024 11:32 AM EST Pending Prescriptions: Disp Refills Metoprolol Succinate ER 25 MG Oral Tablet *90 Tab*0 Sig: TAKE 1 TABLET BY MOUTH EVERY DAY IN THE MORNING * Telephone Encounter - Adonis Tristan RP - 05/12/2024 11:30 AM EST Former patient of Krystle Najera. Unable to authorize medication refills for pended medication(s) at this time. Part of the protocol criteria used for refill authorization was not satisfied. Per refill protocol patient should have OV on file within past 6 months of lats OV dated 05/21/23. Please contact patient to schedule office visit with CARDIOLOGY Last Visit: 05/21/2023 (in office), Visit date not found (telemedicine) Next Visit: Visit date not found After contacting patient, please forward request to Oanh GHOTRA (unless pt schedules with a new provider, route to new provider). Adonis Tristan RP, Pharm D Clinical Pharmacist [facility] 05/12/2024, 11:31 AM [phone] documented in this encounter Plan of Treatment Upcoming Encounters Date Type Department Care Team (Late st Contact Info) Description 06/13/2024 10:40 AM EST Office Visit Neurology [facility] [place] [address] [facility] [place] [address] Constantine Lezama MD [address] [place] [address] Health Maintenance Due Date Last [...] filedocumented as of this encounter Care Teams Dural Mechanic Relationship Specialty Start Date End Date Juan Manuel Naik MD PCP - General Internal Medicine 05/07/23 documented as of this encounter
--- OUTSIDE RECORDS SUMMARY | 2024-06-28 03:40 | External Medical Summary | Summary of Care ---
Author Name Unknown Organization [facility] Address [address] [facility] [place] [address] Phone [phone] Care Team Providers Care Data Reviewer Name Role Phone Juan Manuel Fisher MD Primary Care Provider [phone] Reason for Visit * Reason Comments eRx-Medication Refill Encounter Details Date Type Department Care Team (Late st Contact Info) Description 04/08/2024 Refill [place] [id number] [place] [address] Juan Manuel Fisher MD [address] [place] [address] Type 2 diabetes mellitus with hemoglobin A1c goal of less than 7.0% ([facility])* Allergies Active Allergy Reactions Criticality Noted Date Comments Cat Dander Conjunctivitis 05/01/2023 documented as of this encounter (statuses as of 04/09/2024) Medications Aspirin 81 MG Oral Tablet Delayed [...] of Breath or Wheezing. 54 g 3 12/14/2 023 Active Apixaban 5 MG Oral Tablet (Eliquis) Take 1 Tablet by mouth in the morning and 1 Tablet before bedtime. Take 1 tab by mouth twice daily for atrial fibrillation . 180 Tablet 3 Active Atorvastatin Calcium 10 MG Oral Tablet (Lipitor) Take 1 Tablet by mouth every afternoon. Take 1 tab by mouth every evening for hyperlipidemia 90 Tablet 3 Active Glucose 40 % Oral Gel (Glutose 5) Take 15 g of glucose by mouth as needed for Hypoglycemia (low sugar). Less than 60 three times notify MD 2 Each 3 Active guaiFENesin 100 MG/5ML Oral Liquid Take 10 mL by mouth every 4 hours as needed for Cough. 120 mL 3 Active Ondansetron HCl 4 MG Oral Tablet (Zofran) Take 1 Tablet by mouth every 4 hours as needed for Nausea or Vomiting. 20 Tablet 3 Active Lidocaine HCl 4 % External Cream (Aspercreme Lidocaine) Apply 1 g topically to affected area in the morning and 1 g in the evening. Apply topically to back at bedtime for back pain. 133 g 3 Active FreeStyle Lancets Use to test blood sugars once daily 100 Each Active Isosorbide Mononitrate ER 60 MG Oral Tablet Extended Release 24 Hour (Imdur) Take 1 Tablet by mouth in the morning. 90 Tablet 3 Active Metoprolol Succinate ER 25 MG Oral Tablet Extended Release 24 Hour (toPROL XL) Take 1 Tablet by mouth in the morning. 90 Tablet 3 023 Active Fluticasone-Sa lmeterol 250-50 MCG/ACT Inhalation Aerosol Powder Breath Activated (Advair Diskus) Inhale 1 Puff by mouth in the morning and 1 Puff before bedtime. 60 Each Active Fluticasone Furoate-Vilant sid 100-25 MCG/ACT Inhalation Aerosol Powder Breath Activated (BREO ellipta) Inhale 1 Puff by mouth in the morning. 28 Each Active Cyanocobalamin 500 MCG Oral Tablet TAKE 1 TABLET BY MOUTH ONCE A WEEK. ON THURSDAYS 12 Tablet 3 Active metFORMIN HCl 1000 MG Oral Tablet (Glucophage) TAKE 1 TABLET BY MOUTH EVERY DAY IN THE MORNING 90 Tablet Active metFORMIN HCl 1000 MG Oral Tablet (Glucophage) Take 1 Tablet by mouth in the morning. 90 Tablet 024 2023 Discontinued documented as of this encounter (statuses as of 04/09/2024) Active Problems Problem Noted Date Diagnosed Date [...] as of this encounter (statuses as of 04/09/2024) Immunizations Name Administration Dates Next Due COVID-19 [...] encounter Miscellaneous Notes * Telephone Encounter - Isadora Herrera, [facility] - 04/09/2024 2:27 PM EST Signed Prescriptions: Disp Refills metFORMIN HCl 1000 MG Oral Tablet (Glucoph*90 Tab*0 Sig: TAKE 1TABLET BY MOUTH EVERY DAY IN THE MORNINGAuthorizing Provider: Rommel FISHER User: ISADORA HERRERA documented in this encounter Plan of Treatment Upcoming Encounters Date Type Department Care Team (Late st Contact Info) Description 06/13/2024 10:40 AM EST Office Visit Neurology [facility] [address] [place] [address] Constantine Lezama MD [address] [place] [address] Scheduled Orders Name Type Priority Associated Diagnoses Orde r Schedule COMPREHENSIVE METABOLIC PANEL Lab Routine Type 2 diabetes mellitus with hemoglobin A1c goal of less than 7.0% (HCC) Expected: 04/23/2024 (Approximate), Expires: 04/09/2025 LIPID PANEL WITH DIRECT LDL IF TG IS HIGH Lab Routine Type 2 diabetes mellitus with hemoglobin A1c goal of less than 7.0% (HCC) Expected: 04/16/2024 (Approximate), Expires: 04/16/2025 HEMOGLOBIN A1C Lab Routine Type 2 diabetes mellitus with hemoglobin A1c goal of less than 7.0% (HCC) Expected: 04/16/2024 (Approximate), Expires: 04/16/2025 Health Maintenance Due Date Last Done Comments [...] as of this encounter Visit Diagnoses Diagnosis Type 2 diabetes mellitus with hemoglobin A1c goal of less than 7.0% (HCC)- Primary documented in this encounter Care Teams Data Reviewer Relationship Specialty Start Date End Date Juan Manuel Fisher MD [address] [place] [facility] [place] [address] PCP - General Internal Medicine 05/07/23 documented as of this encounter
--- OUTSIDE RECORDS SUMMARY | 2024-06-28 03:40 | External Medical Summary | Summary of Care ---
Author Name Unknown Organization [facility] Address [address] [facility] [place] [address] Phone [phone] Care Team Providers Care Director Of Alumni Relations Name Role Phone Juan Manuel Naik MD Primary Care Provider [phone] Reason for Visit * Reason Onset Date Comments Test Results 11/09/2023 Encounter Details Date Type Department Care Team (Late st Contact Info) Description 11/09/2023 Telephone [facility] [address] [place] [address] Juan Manuel Naik MD [address] [place] [address] Test Results Allergies Active Allergy Reactions Criticality Noted Date Comments Cat Dander Conjunctivitis 05/01/2023 documented as of this encounter (statuses as of 02/08/2024) Medications Medication Sig Dispensed Refills Start Date End Date Status Aspirin 81 MG Oral Tablet Delayed Release [...] of Breath or Wheezing. 54 g 3 05/07/2023 Active Apixaban 5 MG Oral Tablet (Eliquis) Take 1 Tablet by mouth in the morning and 1 Tablet before bedtime. Take 1 tab by mouth twice daily for atrial fibrillation . 180 Tablet 3 05/07/2023 Active Atorvastatin Calcium 10 MG Oral Tablet (Lipitor) Take 1 Tablet by mouth every afternoon. Take 1 tab by mouth every evening for hyperlipidemia 90 Tablet 3 05/07/2023 Active Cyanocobalamin 500 MCG Oral Tablet (QC Vitamin B12) Take 1 Tablet by mouth once a week. On 12 Tablet 3 05/07/2023 Active Glucose 40 % Oral Gel (Glutose 5) Take 15 g of glucose by mouth as needed for Hypoglycemia (low sugar). Less than 60 three times notify MD 2 Each 3 05/07/2023 Active guaiFENesin 100 MG/5ML Oral Liquid Take 10 mL by mouth every 4 hours as needed for Cough. 120 mL 3 05/07/2023 Active Ondansetron HCl 4 MG Oral Tablet (Zofran) Take 1 Tablet by mouth every 4 hours as needed for Nausea or Vomiting. 20 Tablet 3 05/07/2023 Active Lidocaine HCl 4 % External Cream (Aspercreme Lidocaine) Apply 1 g topically to affected area in the morning and 1 g in the evening. Apply topically to back at bedtime for back pain. 133 g 3 05/14/2023 Active FreeStyle Lancets Use to test blood sugars once daily 100 Each 3 05/26/2023 Active Isosorbide Mononitrate ER 60 MG Oral Tablet Extended Release 24 Hour (Imdur) Take 1 Tablet by mouth in the morning. 90 Tablet 3 05/21/2023 Active Metoprolol Succinate ER 25 MG Oral Tablet Extended Release 24 Hour (toPROL XL) Take 1 Tablet by mouth in the morning. 90 Tablet 3 05/21/2023 Active Fluticasone-Salme terol 250-50 MCG/ACT Inhalation Aerosol Powder Breath Activated (Advair Diskus) Inhale 1 Puff by mouth in the morning and 1 Puff before bedtime. 60 Each 08/11/2023 Active Fluticasone Furoate-Vilantero l 100-25 MCG/ACT Inhalation Aerosol Powder Breath Activated (BREO ellipta) Inhale 1 Puff by mouth in the morning. 28 Each 08/13/2023 Active metFORMIN HCl 1000 MG Oral Tablet (Glucophage) Take 1 Tablet by mouth in the morning. 90 Tablet 10/27/2023 Active documented as of this encounter (statuses as of 02/08/2024) Active Problems Problem Noted Date Diagnosed Date [...] as of this encounter (statuses as of 02/08/2024) Immunizations Name Administration Dates Next Due COVID-19 mRNA, LNP-s, No Pre serve, 2-Dose Series (Moderna) 05/15/2021,07/24/2020,06/22/2020 Pneumococcal Polysaccharide PPV23 (Pneumovax) 02/10/2020 Seasonal Influenza Virus Vac cine, Unspecified Formulation 02/11/2017,02/02/2013 Seasonal Influenza, High Dos e, Trivalent, PF, IM (Fluzone HD) 02/09/2019,02/10/2018 Seasonal Influenza, Trivalen t, (IIV3), with Preserv, (Fluzone) 03/06/2015,02/02/2013 Tetanus Toxid Adsorbed 05/25/1995 Zoster Vaccine Recombinant [...] Assigned at Male 05/01/2023 7:01 AM EST Gender Identity Male 05/01/2023 7:01 AM EST Sexual Orientation Straight 05/01/2023 7: 01 AM EST Job Start Date Occupation Industry Not on file Not on file Not on file documented as of this encounter Miscellaneous Notes * Telephone Encounter - Melody Santos LPN - 11/09/2023 2:49 PM EDT ----- Message from Og Crandall MD sent at 11/07/2023 4:13 PM EDT ----- Lab work looks very good overall. Thyroid function, B12, Magnesium all normal. Monitor kidney function moving forward which has decreased over the last 6 months. Order for MRI placed to rule out intracranial pathology causing tremor episodes. Og Crandall MD Called daughter and Father both answered phone and are aware. Awaiting to hear back about the MRI. documented in this encounter Plan of Treatment Upcoming Encounters Date Type Department Care Team (Late st Contact Info) Description 06/13/2024 10:40 AM EST Office Visit Neurology [facility] [address] [place] [address] Constantine Lezama MD [address] [place] [address] Health Maintenance Due Date Last Done Comments [...] filedocumented as of this encounter Care Teams Director Of Alumni Relations Relationship Specialty Start Date End Date Juan Manuel Naik MD [address] [place] [address] PCP - General Internal Medicine 05/07/23 documented as of this encounter
--- OUTSIDE RECORDS SUMMARY | 2024-06-28 03:40 | External Medical Summary | Summary of Care ---
Author Name Unknown Organization [facility] Address [address] [facility] [place] [address] Phone [phone] Care Team Providers Care Asbestos Shingle Roofer Name Role Phone Juan Manuel Fisher MD Primary Care Provider [phone] Reason for Visit * Reason Comments eRx-Medication Refill Encounter Details Date Type Department Care Team (Late st Contact Info) Description 02/17/2024 Refill [facility] [address] [place] [address] Juan Manuel Fisher MD [address] [place] [address] Allergies Active Allergy Reactions Criticality Noted Date Comments Cat Dander Conjunctivitis 05/01/2023 documented as of this encounter (statuses as of 02/18/2024) Medications Medication Sig Dispensed Refills Start Date [...] fibrillation . 180 Tablet 3 3 Active Atorvastatin Calcium 10 MG Oral Tablet (Lipitor) Take 1 Tablet by mouth every afternoon. Take 1 tab by mouth every evening for hyperlipidemia 90 Tablet 3 3 Active Glucose 40 % [...] the morning. 90 Tablet 3 3 Active Fluticasone-Salm eterol 250-50 MCG/ACT Inhalation Aerosol Powder Breath Activated (Advair Diskus) Inhale 1 Puff by mouth in the morning and 1 Puff before bedtime. 60 Each 11 4 Active Fluticasone Furoate-Vilanter ol 100-25 MCG/ACT Inhalation Aerosol Powder Breath Activated (BREO ellipta) Inhale 1 Puff by mouth in the morning. 28 Each 11 4 Active metFORMIN HCl 1000 MG Oral Tablet (Glucophage) Take 1 Tablet by mouth in the morning. 90 Tablet 4 Active Cyanocobalamin 500 MCG Oral Tablet TAKE 1 TABLET BY MOUTH ONCE A WEEK. ON THURSDAYS 12 Tablet 3 4 Active Cyanocobalamin 500 MCG Oral Tablet (QC Vitamin B12) Take 1 Tablet by mouth once a week. On 12 Tablet 3 3 02/18/20 24 Discontinued documented as of this encounter (statuses as of 02/18/2024) Active Problems Problem Noted Date Diagnosed Date [...] as of this encounter (statuses as of 02/18/2024) Immunizations Name Administration Dates Next Due COVID-19 [...] Encounter - Juan Manuel Fisher MD - 02/18/2024 2:37 PM EDTSigned Prescriptions: Disp Refills Cyanocobalamin 500 MCG Oral Tablet 12 Tab*3 Sig: TAKE 1 TABLET BY MOUTH ONCE A WEEK. ON THURSDAYS Authorizing Provider: JUAN MANUEL FISHER * Telephone Encounter - Leanna Donnelly RN - 02/18/2024 2:03 PM EDTPending Prescriptions: Disp Refills Cyanocobalamin 500 MCG Oral Tablet [Pharma*12 Tab*3 Sig: Take 1 Tablet by mouth once a week. On * Telephone Encounter - Leanna Donnelly RN - 02/18/2024 2:03 PM EDT Pending Prescriptions: Disp Refills Cyanocobalamin 500 MCG Oral Tablet [Pharm*12 Tab*3 Sig: TAKE 1 TABLET BY MOUTH ONCE A WEEK. 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 Abdominal aortic aneurysm (AAA) without rupture ([facility]) Iliac artery stenosis, right ([facility]) Asymptomatic bilateral carotid artery stenosis HTN, goal below 140/90 Primary osteoarthritis of both knees Type 2 diabetes mellitus with hemoglobin A1c goal of less than 7.0% ([facility]) 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 ([facility]) Labs: Lab Results Component Value Date/Time CREATININE - [facility] 1.4 (H) 11/04/2023 03:26 PM CREATININE, RANDOM URINE - [facility] 290 08/17/2023 09:53 AM Lab Results Component Value Date/Time POTASSIUM - [facility] 5.0 11/04/2023 03:26 PM Lab Results Component Value Date/Time TSH - [facility] 3.71 11/04/2023 03:26 PM Lab Results Component Value Date/Time LDL (CALCULATED)-OUTSIDE LAB 69 04/11/2020 07:09 AM LDL CHOLESTEROL (DIRECT MEASURE) - [facility] 53 06/16/2023 09:15 AM Lab Results Component Value Date/Time ALT - [facility] 16 11/04/2023 03:26 PM Hemoglobin AIC Results: Lab Results Component Value Date/Time HEMOGLOBIN A1C - [facility] 5.6 08/17/2023 09:53 AM HEMOGLOBIN A1C - [facility] 5.4 05/07/2023 11:42 AM * Telephone Encounter - Adeline Hernández - 02/18/2024 4:13 AM EDTPending Prescriptions: Disp Refills Cyanocobalamin 500 MCG Oral Tablet [Pharma*12 Tab*3 Sig: Take 1 Tablet by mouth once a week. On documented in this encounter Plan of Treatment Upcoming Encounters Date Type Department Care Team (Late st Contact Info) Description 06/13/2024 10:40 AM EST Office Visit Neurology [facility] [address] [place] [address] Constantine Lezama MD [address] [place] [address] Health Maintenance Due Date Last [...] filedocumented as of this encounter Care Teams Asbestos Shingle Roofer Relationship Specialty Start Date End Date Juan Manuel Fisher MD [address] [place] [facility] [place] [address] PCP - General Internal Medicine 05/07/23 documented as of this encounter
--- OUTSIDE RECORDS SUMMARY | 2024-06-28 03:40 | External Medical Summary | Summary of Care ---
Author Name Unknown Organization [facility] Address [address] [facility] [address] Phone [phone] Care Team Providers Care Tool Sharpener Name Role Phone Juan Manuel Naik MD Primary Care Provider [phone] Encounter Details Date Type Department Care Team (Late st Contact Info) Description 01/10/2024 Result Scan Unspecified Department Colette Means, DO [address] [facility] [address] <No scans attached> Allergies Active Allergy Reactions Criticality Noted Date Comments Cat Dander Conjunctivitis 05/01/2023 documented as of this encounter (statuses as of 01/10/2024) Medications Medication Sig Dispensed Refills Start Date [...] 1 Puff before bedtime. 60 Each 11 08/11/2023 Active Fluticasone Furoate-Vilantero l 100-25 MCG/ACT Inhalation Aerosol Powder Breath Activated (BREO ellipta) Inhale 1 Puff by mouth in the morning. 28 Each 08/13/2023 Active metFORMIN HCl 1000 MG Oral Tablet (Glucophage) Take 1 Tablet by mouth in the morning. 90 Tablet 10/27/2023 Active documented as of this encounter (statuses as of 01/10/2024) Active Problems Problem Noted Date Diagnosed Date [...] as of this encounter (statuses as of 01/10/2024) Immunizations Name Administration Dates Next Due COVID-19 mRNA, LNP-s, No Pre serve, 2-Dose Series (Moderna) 05/15/2021,07/24/2020,06/22/2020 Pneumococcal Polysaccharide PPV23 (Pneumovax) 02/10/2020 Seasonal Influenza Virus Vac cine, Unspecified Formulation 02/11/2017,02/02/2013 Seasonal Influenza, Split, I IV3, With Preserve, Inj 03/06/2015,02/02/2013 Seasonal Influenza, Trivalen t, High Dose, No Preserve, IM 02/09/2019,02/10/2018 Tetanus Toxid Adsorbed 05/25/1995 Zoster Vaccine [...] No 05/01/2023 Does the household have a [facility] source of income? (Household - for ages [...] on file documented as of this encounter Plan of Treatment Upcoming Encounters Date Type Department Care Team (Late st Contact Info) Description 02/02/2024 1:00 PM EDT Office Visit [address] [place] [id number] Sammy Montemayor PA-C [address] [facility] [place] [address] 02/09/2024 1:00 PM EDT Office Visit [address] [place] [id number] Sammy Montemayor PA-C [address] [place] [address] 02/16/2024 1:00 PM EDT Office Visit Orthopaedics [address] [place] [address] Sammy Montemayor PA-Lion [address] [place] [address] 06/13/2024 10:40 AM EST Office Visit Neurology [facility] [place] [address] [place] [address] Constantine Lezama MD [address] [place] [address] Health Maintenance Due Date Last Done Comments Adult Wellness Visit 2002 Zoster Vaccines (2 of 2) 05/08/2020 03/13/2020 Pneumococcal Vaccine: 65+ Years (2 of 2 - PCV) 02/09/2021 02/10/2020 COVID-19 Vaccine (4 - 2022- season) 2023 05/15/2021, 07/24/2020, 06/22/2020 AAA Monitoring 12/05/2023 12/04/2022, 11/22, 01/21/2022, Additional history exists Influenza Vaccine (FLU shot) (#1) 2024 02/09/2019, 02/10/2018, 02/11/2017, Additional history exists HbA1c 02/17/2024 08/17/2023, 04/24, 07/01/2022, Additional history exists Depression Screening 05/01/2024 05/01/2023 Diabetic Eye Exam 05/07/2024 05/07/2023 Albumin/Creatinine Ratio 08/16/2024 08/17/2023 Diabetic Foot Exam 08/16/2024 08/17/2023 DTaP,Tdap,and Td Vaccines Discontinued HPV (Gardasil) Vaccine Aged Out [...] Date/Time Associated Diagnosis Comments CARDIOLOGY SCANNED RESULT 01/10/2024 documented in this encounter Results * CARDIOLOGY SCANNED RESULT (01/10/2024) 01/10/2024 Colette Means DO OTHER documented in this encounter Care Teams Tool Sharpener Relationship Specialty Start Date End Date Juan Manuel Naik MD [address] [place] [address] PCP - General Internal Medicine 05/07/23 documented as of this encounter
--- OUTSIDE RECORDS SUMMARY | 2024-06-28 03:40 | External Medical Summary | Summary of Care ---
Author Name Unknown Organization [facility] Address [address] [facility] [place] [address] Phone [phone] Care Team Providers Care Test Conductor Name Role Phone Juan Manuel Naik MD Primary Care Provider [phone] Reason for Visit * Reason Onset Date Comments Test Results 12/02/2023 Encounter Details Date Type Department Care Team (Late st Contact Info) Description 12/02/2023 Telephone [facility] [address] [place] [address] Juan Manuel Naik MD [address] [place] [address] Test Results Allergies Active Allergy Reactions Criticality Noted Date Comments Cat Dander Conjunctivitis 05/01/2023 documented as of this encounter (statuses as of 03/02/2024) Medications Medication Sig Dispensed Refills Start Date [...] by mouth in the morning. 28 Each 4 Active metFORMIN HCl 1000 MG Oral Tablet (Glucophage) Take 1 Tablet by mouth in the morning. 90 Tablet 4 Active Cyanocobalamin 500 MCG Oral Tablet (QC Vitamin B12) Take 1 Tablet by mouth once a week. On 12 Tablet 3 3 02/18/20 24 Discontinued documented as of this encounter (statuses as of 03/02/2024) Active Problems Problem Noted Date Diagnosed Date [...] as of this encounter (statuses as of 03/02/2024) Immunizations Name Administration Dates Next Due COVID-19 [...] Telephone Encounter - Melody Santos LPN - 12/02/2023 8:31 AM EDT Patient called. Informed of message. Verbalized understanding. 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 No specific cause of tremor is identified on the imaging. Og Crandall MD documented in this encounter Plan of Treatment Upcoming Encounters Date Type Department Care Team (Late st Contact Info) Description 06/13/2024 10:40 AM EST Office Visit Neurology [facility] [address] [place] [address] Constantine Lezama MD [address] [place] [address] Health Maintenance Due Date Last [...] filedocumented as of this encounter Care Teams Test Conductor Relationship Specialty Start Date End Date Juan Manuel Naik MD [address] [place] [address] PCP - General Internal Medicine 05/07/23 documented as of this encounter
[2024-06-28] MEDS: OPTIRAY 320 100ml IV ONE (04:06)
[2024-06-28] MEDS: DIPHTHER/TETAN/PERTUS Vaccine (Tdap, Adol/Adult) 0.5mL IM ONE (04:13)
[2024-06-28] MEDS: AMOXICILLIN/CLAVULANATE 875 MG TAB PO ONE (04:15)
[2024-06-28] MEDS ORDERED: Patient's ALLERGY Info needs ENTERED STA (05:14)
--- NOTE | 2024-06-28 05:25 | CT Scan Report ---
EXAM: CT chest diagnostic w con CLINICAL HISTORY: Aspiration vs pulmonary contusion TECHNIQUE: Contiguous axial images were obtained from the neck base through the upper abdomen following intravenous administration of contrast material. If IV contrast material had not been administered, the likelihood of detecting abnormalities relevant to the patient's condition would have been substantially decreased. In addition, sagittal and coronal reconstructions were performed. CT scan was performed according to ALARA (as low as reasonably achievable). COMPARISON: none FINDINGS: Bilateral moderate pleural effusion with bilateral fissural extension and adjacent basal atelectasis. Diffuse mosaic attenuation in bilateral lungs. Multiple enlarged right paratracheal, pretracheal, AP window, subcarinal and prevascular lymph nodes seen, largest of size 1.9x1.3cm. The central airways are patent. No pneumothorax is seen. No axillary, hilar, or mediastinal adenopathy is identified. The visualized thyroid is unremarkable. The heart, aorta, and pulmonary arteries are of normal size and configuration. Cardiac pacemaker seen. No pericardial effusion is identified. Imaged portions of the upper abdomen are unremarkable. No aggressive appearing osseous lesions are identified. Degenerative changes in visualized spine. IMPRESSION: 1. Bilateral moderate pleural effusion with adjacent basal atelectasis. Suggested aspiration and analysis. 2. Diffuse mosaic attenuation in bilateral lungs. Likely small airway disease. 3. Mediastinal lymphadenopathy - likely reactive. Electronically signed by Jesus Farnsworth 06-28-2024 05:25 AM
[2024-06-28] MEDS: LABETALOL HCL IV 5 MG/ML 20ML IV STA (05:32)
--- NOTE | 2024-06-28 07:57 | History & Physical Report ---
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 Patient says having dry cough and shortness of breath for about a week now. He ambulates with a walker. Last night he has to go to bathroom and ambulated with cane and was wobbly and fell in the bathroom and hit his head. No loss of consciousness. Was brought in here and found to have bruise around right eye region. Currently denies any headache. Vision is okay. Denies runny nose. No fevers. Denies chest pain. No nausea. No abdominal pain. Normal bowel and bladder movements. Resting comfortably. Acute on chronic diastolic CHF Having cough and shortness of breath going on for 1 week Mild pedal edema present CT chest shows moderate pleural effusion and possible aspiration Treating with IV Lasix 40 mg daily I's and O's. Daily weights Will follow echo Telemetry Cardiac consult for further recommendations Possible aspiration On Augmentin Speech evaluation Fall Bruise on the right side of the face CT head and CT cervical spine is okay Face CT shows nasal and maxillary fractures Will consult maxillofacial surgery Placed on Augmentin PT OT when stable Permanent atrial fibrillation Status post pacemaker On metoprolol and Eliquis Diabetes Hold metformin Sliding scale Will monitor Hypertension On Imdur, metoprolol succinate Will monitor Hyperlipidemia On statin DVT prophylaxis Eliquis Disposition Med/Telemetry Full code History of Present Illness Chief Complaint: Status post fall and cough Primary Care Provider: Juan Manuel Naik MD 88-year-old male with past medical history significant for type 2 diabetes, 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 Patient says having dry cough and shortness of breath for about a week now. He ambulates with a walker. Last night he has to go to bathroom and ambulated with cane and was wobbly and fell in the bathroom and hit his head. No loss of consciousness. Was brought in here and found to have bruise around right eye region. Currently denies any headache. Vision is okay. Denies runny nose. No fevers. Denies chest pain. No nausea. No abdominal pain. Normal bowel and bladder movements. Resting comfortably. Past medical history. As mentioned above Past surgical history. Status post pacemaker Social history. Living with his daughter. Used to smoke in the past. No alcohol use currently. Family history. No famished on file. Allergies Allergy/AdvReac Type Severity Reaction Status Date / Time cat dander Allergy Sneezing Verified 06/28/24 05:23 Home Medications Medication Instructions Recorded Confirmed Type albuterol sulfate 90 mcg/actuation 2 puff inhalation QID PRN Wheezing 12/21/23 06/28/24 History aerosol inhaler apixaban 5 mg tablet 5 mg PO BID 12/21/23 06/28/24 History aspirin 81 mg chewable tablet 81 mg PO DAILY 12/21/23 06/28/24 History atorvastatin 10 mg tablet 10 mg PO QPM 12/21/23 06/28/24 History cyanocobalamin (vitamin B-12) 500 500 mcg PO WK 12/21/23 06/28/24 History mcg tablet fluticasone 250 mcg-salmeterol 50 1 inh inhalation BID 12/21/23 06/28/24 History mcg/dose blistr powdr for inhalation fluticasone furoate 100 1 inh inhalation DAILY 12/21/23 06/28/24 History mcg-vilanterol 25 mcg/dose inhalation powder isosorbide mononitrate 60 mg 60 mg PO DAILY 12/21/23 06/28/24 History tablet,extended release 24 hr metformin 1,000 mg tablet 500 mg PO BID 12/21/23 06/28/24 History metoprolol succinate 25 mg 25 mg PO DAILY 12/21/23 06/28/24 History tablet,extended release 24 hr ondansetron 4 mg disintegrating 4 mg PO Q4H PRN Nausea 12/21/23 06/28/24 History tablet Past Med/Surg History Problem List (Updated 06/28/24 @ 08:05 by Amrik Valdes MD) Acute diastolic (congestive) heart failure Acute hypoxemic respiratory failure (Acute) Pleural effusion (Acute) Head injury (Acute) Closed fracture nasal bone (Acute) Maxillary fracture (Acute) Medical History (Updated 06/28/24 @ 08:05 by Amrik Valdes MD) HTN (hypertension), benign Tremor Surgical History (Updated 12/21/23 @ 09:34 by Lorene Nieves) S/P placement of cardiac pacemaker Social History Smoking Status: Former smoker Tobacco Type: Cigarettes Preferred Language: [place] Feels Safe at Home: Yes Review of Systems Review of Systems: All systems reviewed & are unremarkable except as noted in HPI & below Physical Exam Physical Exam: General- Not in acute distress Head- Swelling and bruise around right eye region Eyes- PERRL. ENT- oropharynx clear Neck- supple, no JVD. Lungs- clear to auscultation mild b/l wheezing present Heart- regular rhythm; no murmur, no gallop. Abdomen- normal bowel sounds, soft, nontender, no distension Extremities- mild pretibial edema present, no erythema seen Neuro- alert, oriented PERRL, no facial palsy; no dysarthria; moves extremities Results & Data Results & Data Vital Signs (Past 12 Hours) Vital Signs Temp Pulse Pulse Resp BP BP Pulse Ox 06/28/24 06:01 79 17 113/79 99 06/28/24 05:32 89 06/28/24 05:31 88 18 165/122 H 97 06/28/24 05:27 87 06/28/24 05:00 87 16 191/113 H 94 06/28/24 04:33 92 H 18 160/124 H 91 06/28/24 03:30 98 H 15 162/113 H 96 06/28/24 02:12 84 18 158/111 H 96 06/28/24 01:43 104 H 20 153/94 H 96 06/28/24 01:34 117 H 06/28/24 01:12 36.6 C 128 H 20 162/96 H 93 O2 Del Method O2 Flow Rate 06/28/24 06:01 Room Air 06/28/24 05:32 06/28/24 05:31 Room Air 06/28/24 05:27 06/28/24 05:00 Room Air 06/28/24 04:33 Room Air 06/28/24 03:30 Room Air 06/28/24 02:12 Nasal Cannula 2 06/28/24 01:43 Nasal Cannula 2 06/28/24 01:34 06/28/24 01:12 Room Air Diagnostic Findings Laboratory Results WBC 6.70 K/ul (4.8-10.8) 06/28/24 01:37 RBC 4.07 M/uL (4.70-6.10) L 06/28/24 01:37 Hgb 9.0 g/dl (14.0-18.0) L 06/28/24 01:37 Hct 32.4 % (42.0-52.0) L 06/28/24 01:37 MCV 79.6 fL (80.0-100.0) L 06/28/24 01:37 MCH 22.1 pg (25.0-34.0) L 06/28/24 01:37 MCHC 27.8 g/dL (32.0-36.0) L 06/28/24 01:37 RDW Std Deviation 57.0 fL (36.4-46.3) H 06/28/24 01:37 RDW Coeff of [place] 19.9 % (11.5-14.5) H 06/28/24 01:37 Plt Count 113 K/uL (130-400) L 06/28/24 01:37 MPV 10.0 fL (9.4-12.4) 06/28/24 01:37 Immature Gran % (Auto) 0.3 % 06/28/24 01:37 Neut % (Auto) 79.5 % 06/28/24 01:37 Lymph % (Auto) 10.1 % 06/28/24 01:37 [place] % (Auto) 8.5 % 06/28/24 01:37 Eos % (Auto) 1.2 % 06/28/24 01:37 Baso % (Auto) 0.4 % 06/28/24 01:37 Neut # (Auto) 5.32 K/uL (1.40-6.50) 06/28/24 01:37 Lymph # (Auto) 0.68 K/uL (1.20-3.40) L 06/28/24 01:37 [place] # (Auto) 0.57 K/uL (0.11-0.59) 06/28/24 01:37 Eos # (Auto) 0.08 K/uL (0.00-0.50) 06/28/24 01:37 Baso # (Auto) 0.03 K/uL (0.00-0.20) 06/28/24 01:37 Immature Gran # (Auto) 0.02 K/uL (0.01-0.20) 06/28/24 01:37 PT 12.4 Seconds (9.0-12.0) H 06/28/24 01:37 INR 1.2 (0.9-1.1) H 06/28/24 01:37 Sodium 138 mmol/L (136-145) 06/28/24 01:37 Potassium 4.7 mmol/L (3.5-5.1) 06/28/24 01:37 Chloride 107 mmol/L (98-107) 06/28/24 01:37 Carbon Dioxide 26 mmol/L (21-32) 06/28/24 01:37 Anion Gap 5 (3-11) 06/28/24 01:37 BUN 30 mg/dl (6-23) H 06/28/24 01:37 Creatinine 1.19 mg/dl (0.6-1.4) 06/28/24 01:37 Est Cr Clr Drug Dosing 58.4 ml/min 06/28/24 01:37 eGFR 59.12 06/28/24 01:37 BUN/Creatinine Ratio 25.2 (10-20) H 06/28/24 01:37 Glucose 138 mg/dl (70-99(Fasting)) H 06/28/24 01:37 Calcium 8.5 mg/dl (8.6-10.3) L 06/28/24 01:37 Adenovirus (PCR) Not Detected (NotDetected) 06/28/24 01:37 B. pertussis DNA (PCR) Not Detected (NotDetected) 06/28/24 01:37 B.parapertussis DNA PCR Not Detected (NotDetected) 06/28/24 01:37 C. pneumoniae DNA (PCR) Not Detected (NotDetected) 06/28/24 01:37 Coronavirus OC43 (PCR) Not Detected (NotDetected) 06/28/24 01:37 Coronavirus HKU1 (PCR) Not Detected (NotDetected) 06/28/24 01:37 Coronavirus 229E (PCR) Not Detected (NotDetected) 06/28/24 01:37 SARS-CoV-2 (PCR) Not Detected (NotDetected) 06/28/24 01:37 Coronavirus NL63 (PCR) Not Detected (NotDetected) 06/28/24 01:37 Human Metapneumovir PCR Not Detected (NotDetected) 06/28/24 01:37 Influenza Type A (PCR) Not Detected (NotDetected) 06/28/24 01:37 Influenza Type B (PCR) Not Detected (NotDetected) 06/28/24 01:37 M. pneumoniae (PCR) Not Detected (NotDetected) 06/28/24 01:37 Parainfluenza 1 (PCR) Not Detected (NotDetected) 06/28/24 01:37 Parainfluenza 2 (PCR) Not Detected (NotDetected) 06/28/24 01:37 Parainfluenza 3 (PCR) Not Detected (NotDetected) 06/28/24 01:37 Parainfluenza 4 (PCR) Not Detected (NotDetected) 06/28/24 01:37 RSV (PCR) Not Detected (NotDetected) 06/28/24 01:37 Entero/Rhino (PCR) Not Detected (NotDetected) 06/28/24 01:[address] 06/28/24 01:11 EXAM: CT cervical spine wo con CLINICAL HISTORY: Fall w/ facial injury. Blood thinner TECHNIQUE: Computed tomography of the cervical spine performed without intravenous contrast. Contiguous axial images were obtained from the skull base to T2, with sagittal and coronal reformatted images reconstructed from the axial data. CT scan was performed according to ALARA (as low as reasonable achievable). COMPARISON: None. FINDINGS: Loss of cervical lordosis - suggest possibility of muscle spasm/positional. Degenerative changes involving cervical spine in the form of multilevel marginal osteophytes, disc space reduction and facetal arthrosis. Cervical vertebral bodies are normal in height and alignment, with no evidence of fracture or subluxation. Lateral masses of C1 are symmetrical, and the dens is intact. Prevertebral soft tissues are not widened. The remaining suprahyoid and infrahyoid soft tissues in the neck are unremarkable. Posterior uncovertebral arthrosis is noted at C6-C7 levels, which indenting ventral thecal sac and causes bilateral neuroforaminal narrowing. Thyroid gland appears unremarkable. IMPRESSION: 1.No acute fracture or subluxation in the cervical spine. 2.Cervical spondylosis. Visualized lung apices showed bilateral pleural effusion. Electronically signed by Jesus Farnsworth 06-28-2024 02:[address] 06/28/24 01:11 EXAM: CT facial bones wo con CLINICAL HISTORY: Fall w/ facial injury. Blood thinner TECHNIQUE: Computed tomography of the orbits/face was performed without intravenous contrast. Contiguous axial images were obtained. Reformatted coronal and sagittal images were also reviewed. CT scan was performed according to ALARA (as low as reasonable achievable). COMPARISON: none. FINDINGS: Displaced fracture of bilateral nasal bone. Linear fracture of frontal process of maxilla bilaterally. Displaced fracture of right lamina papyracea. Right ethmoid hemosinus formation A retention cyst is noted in the left maxillary sinus. Rest of paranasal sinuses and mastoid air cells are clear. The globes, optic nerves, extraocular muscles and retro-orbital fat are grossly unremarkable. Reformatted imaging demonstrates intact roof and floor of the orbits. Included portions of the mandible are intact. The included intracranial substances and airway are unremarkable. IMPRESSION: Displaced fracture of bilateral nasal bone. Linear fracture of frontal process of maxilla bilaterally. Displaced fracture of right lamina papyracea. Right ethmoid hemosinus formation A retention cyst is noted in the left maxillary sinus. Electronically signed by Jesus Farnsworth 06-28-2024 02:[address] 06/28/24 01:11 EXAM: CT head/brain wo con CLINICAL HISTORY: Fall w/ facial injury. Blood thinner TECHNIQUE: Multiple axial images are obtained from the skull base to the vertex without contrast. CT scan was performed according to ALARA (as low as reasonable achievable). COMPARISON: None. FINDINGS: There is cerebral atrophy. No evidence of space occupying lesion, hemorrhage, edema, mass effect, midline shift, extra axial collection, or hydrocephalus is noted. Basal cisterns are symmetric and normal in size and configuration. There are scattered periventricular hypodensities as can be seen with chronic microvascular ischemic changes. The reed-white matter differentiation is preserved. Retention cyst is noted in the left maxillary sinus. Mild bilateral ethmoid sinusitis. Rest of paranasal sinuses and mastoid air cells are well aerated. Orbital contents are within normal limits. Bony structures are intact. Displaced fracture of bilateral nasal bone. IMPRESSION: 1. No evidence of acute intracranial abnormality is demonstrated. 2. Chronic microvascular ischemic changes. 3. Cerebral atrophy. Electronically signed by Jesus Farnsworth 06-28-2024 02:26 AM Chest X-Ray 06/28/24 01:48 EXAM: XR chest 1V portable CLINICAL HISTORY: cough, congestion TECHNIQUE: An X-ray image of the chest is obtained using an AP projection. COMPARISON: No prior studies are available for comparison. FINDINGS: Pulmonary Parenchyma: Obliteration of both costophrenic angles denoting bilateral pleural effusion is more marked on the right side. Veiling /groundglass opacity seen in the right lower lung zone, in the clinical setting of trauma pulmonary aspiration/hemorrhage should be considered. No evidence of lung collapse Heart and Mediastinum: Heart size and shape are normal. No mediastinal widening or masses. No hilar or mediastinal lymphadenopathy. Bony Thorax: The bony thorax appears intact without fractures or deformities. Soft Tissues: Soft tissues overlying the chest wall are unremarkable. IMPRESSION: 1. Blunting of both costophrenic angles suggests bilateral pleural effusion more marked on the right side. 2. Veiling/ground glass opacity of the right lower lung zone, in the clinical setting of trauma pulmonary aspiration/hemorrhage, should be considered. Electronically signed by Frankie Beckwith 06-28-2024 03:[address] 06/28/24 03:10 EXAM: CT chest diagnostic w con CLINICAL HISTORY: Aspiration vs pulmonary contusion TECHNIQUE: Contiguous axial images were obtained from the neck base through the upper abdomen following intravenous administration of contrast material. If IV contrast material had not been administered, the likelihood of detecting abnormalities relevant to the patient's condition would have been substantially decreased. In addition, sagittal and coronal reconstructions were performed. CT scan was performed according to ALARA (as low as reasonably achievable). COMPARISON: none FINDINGS: Bilateral moderate pleural effusion with bilateral fissural extension and adjacent basal atelectasis. Diffuse mosaic attenuation in bilateral lungs. Multiple enlarged right paratracheal, pretracheal, AP window, subcarinal and prevascular lymph nodes seen, largest of size 1.9x1.3cm. The central airways are patent. No pneumothorax is seen. No axillary, hilar, or mediastinal adenopathy is identified. The visualized thyroid is unremarkable. The heart, aorta, and pulmonary arteries are of normal size and configuration. Cardiac pacemaker seen. No pericardial effusion is identified. Imaged portions of the upper abdomen are unremarkable. No aggressive appearing osseous lesions are identified. Degenerative changes in visualized spine. IMPRESSION: 1. Bilateral moderate pleural effusion with adjacent basal atelectasis. Suggested aspiration and analysis. 2. Diffuse mosaic attenuation in bilateral lungs. Likely small airway disease. 3. Mediastinal lymphadenopathy - likely reactive. Electronically signed by Jesus Farnsworth 06-28-2024 05:25 AM ECG Additional Comments: ECG. Accelerated junctional rhythm with retrograde conduction at rate of 128. Nonspecific ST and T wave abnormalities. QTc 455 Code Status & VTE Plan VTE Prophylaxis Plan VTE Prophylaxis will be ordered: Yes
[2024-06-28] MEDS ORDERED: ALBUTEROL HFA 8 GM INHALER INH PRN (08:25)
[2024-06-28] MEDS ORDERED: ALBUT/IPRATROP 3MG/0.5MG NEB 3 ML VIAL NEB PRN (08:25)
[2024-06-28] MEDS ORDERED: CYANOCOBALAMIN (B-12) 500 MCG TABLET PO SCH (08:25)
[2024-06-28] MEDS ORDERED: guaiFENesin/DEXTROM SYRUP 100MG/10MG 5ML UDC PO PRN (08:25)
[2024-06-28] MEDS ORDERED: traMADol HCL 50 MG TABLET PO PRN (08:25)
[2024-06-28] MEDS ORDERED: FLUTICASONE/SALMETEROL 250/50 (ADVAIR) 14 PUFF/1 INHALER INH SCH (09:00)
[2024-06-28] MEDS ORDERED: FLUTICASONE/VILANTEROL 100/25MCG 14 PUFFS/INHALER INH SCH (09:00)
[2024-06-28 09:10] LABS: Basophils # (auto) 0.02 K/uL (0.00-0.20); Basophils % (auto) 0.3 %; Eosinophils # (auto) 0.05 K/uL (0.00-0.50); Eosinophils % (auto) 0.8 %; Hematocrit (blood only) 31.3 % (42.0-52.0); Hemoglobin 8.7 g/dl (14.0-18.0); Immature Granulocytes # (auto) 0.02 K/uL (0.01-0.20); Immature Granulocytes % (auto) 0.3 %; Lymphocytes # (auto) 0.77 K/uL (1.20-3.40); Lymphocytes % (auto) 11.9 %; Mean Corpuscular Hemoglobin 22.1 pg (25.0-34.0); Mean Corpuscular Hgb Conc 27.8 g/dL (32.0-36.0); Mean Corpuscular Volume 79.4 fL (80.0-100.0); Mean Platelet Volume 10.3 fL (9.4-12.4); Monocytes # (auto) 0.54 K/uL (0.11-0.59); Monocytes % (auto) 8.3 %; Neutrophils # (auto) 5.08 K/uL (1.40-6.50); Neutrophils % (auto) 78.4 %; Platelet Count 124 K/uL (130-400); RDW Coefficient of Variation 19.9 % (11.5-14.5); RDW Standard Deviation 55.8 fL (36.4-46.3); Red Blood Count 3.94 M/uL (4.70-6.10); White Blood Count 6.48 K/ul (4.8-10.8)
[2024-06-28 09:12] LABS: Creatinine Clr Calc Pharmacy 62.1 ml/min; Magnesium 2.1 mg/dl (1.7-2.4); Potassium 4.5 mmol/L (3.5-5.1)
[2024-06-28] MEDS: METOPROLOL SUCC 25MG EXT REL TAB PO SCH (10:10)
[2024-06-28] MEDS: FUROSEMIDE 40 MG/4 ML VIAL IV SCH (10:10)
[2024-06-28] MEDS: ISOSORBIDE MONO EXTENDED REL 60 MG TABCR PO SCH (10:10)
[2024-06-28] MEDS: ASPIRIN 81 MG ECTAB PO SCH (10:10)
[2024-06-28] MEDS: FLUTICASONE/VILANTEROL 200/25MCG 14 PUFFS/INHALER INH SCH (10:37)
[2024-06-28] MEDS: APIXABAN 5 MG TABLET PO SCH (10:37)
--- NOTE | 2024-06-28 12:57 | Electrocardiogram Report ---
Test Reason : Blood Pressure : */* mmHG Vent. Rate : 128 BPM Atrial Rate : * BPM P-R Int : * ms QRS Dur : 100 ms QT Int : 312 ms P-R-T Axes : * -12 118 degrees QTcB Int : 455 ms Supraventricular tachycardia Diffuse Nonspecific ST abnormality Abnormal ECG No previous ECGs available Confirmed by Lane aC ([id number]) on 06/28/2024 12:57:10 PM Referred By: REFERRED SELF Confirmed By: Lane Ca
--- NOTE | 2024-06-28 15:39 | Oral/Maxillofacial Consult ---
Date of Consultation June 28, 2024 History of Present Illness Attending Physician: Owen De MD History of Present Illness HPI: This is a 88-year-old male presenting for a fall. Patient states that he was ambulating with his cane instead of his walker. He states he fell for unknown reasons and hit the bathroom floor. He may have hit either the sink or the ground. He has contusion of the right eye. He has multiple skin tears to the right arm. He reports pain through his face at this time. He does take Eliquis for A-fib. Otherwise no nausea or vomiting. He reports persistent cough which is worsening of the past few days Acute on chronic diastolic CHF Having cough and shortness of breath going on for 1 week Mild pedal edema present CT chest shows moderate pleural effusion and possible aspiration Treating with IV Lasix 40 mg daily I's and O's. Daily weights Echo,Telemetry Cardiac consult for further recommendations Maxillofacial notes: I reviewed the CT and noted the nasal bone fracture. The right side looks slightly depressed on the CT but not clinically noted. I did a bed side examination and he has good air flow and really no nasal issues He is not having issues with airflow or cosmetics and surgery will not be indicated. I will evaluate further in my office in 03-07 but I doubt if the surgery will be needed CT facial bones wo con CLINICAL HISTORY: Fall w/ facial injury. Blood thinner FINDINGS: Displaced fracture of bilateral nasal bone. Linear fracture of frontal process of maxilla bilaterally. Displaced fracture of right lamina papyracea. Right ethmoid hemosinus formation A retention cyst is noted in the left maxillary sinus. Rest of paranasal sinuses and mastoid air cells are clear. The globes, optic nerves, extraocular muscles and retro-orbital fat are grossly unremarkable. Reformatted imaging demonstrates intact roof and floor of the orbits. Included portions of the mandible are intact. The included intracranial substances and airway are unremarkable. IMPRESSION: Displaced fracture of bilateral nasal bone. Linear fracture of frontal process of maxilla bilaterally. Displaced fracture of right lamina papyracea. Right ethmoid hemosinus formation A retention cyst is noted in the left maxillary sinus. Clinical Impression: Overall Minimal issues with the recent nasal injury no treatment needed I will see Rl as outpatient in 10-14 days Non displaced nasal fractures-no reduction needed. Allergies Allergy/AdvReac Type Severity Reaction Status Date / Time cat dander Allergy Sneezing Verified 06/28/24 05:23 Home Medications Medication Instructions Recorded Confirmed Type albuterol sulfate 90 mcg/actuation 2 puff inhalation QID PRN Wheezing 12/21/23 06/28/24 History aerosol inhaler apixaban 5 mg tablet 5 mg PO BID 12/21/23 06/28/24 History aspirin 81 mg chewable tablet 81 mg PO DAILY 12/21/23 06/28/24 History atorvastatin 10 mg tablet 10 mg PO QPM 12/21/23 06/28/24 History cyanocobalamin (vitamin B-12) 500 500 mcg PO WK 12/21/23 06/28/24 History mcg tablet fluticasone 250 mcg-salmeterol 50 1 inh inhalation BID 12/21/23 06/28/24 History mcg/dose blistr powdr for inhalation fluticasone furoate 100 1 inh inhalation DAILY 12/21/23 06/28/24 History mcg-vilanterol 25 mcg/dose inhalation powder isosorbide mononitrate 60 mg 60 mg PO DAILY 12/21/23 06/28/24 History tablet,extended release 24 hr metformin 1,000 mg tablet 500 mg PO BID 12/21/23 06/28/24 History metoprolol succinate 25 mg 25 mg PO DAILY 12/21/23 06/28/24 History tablet,extended release 24 hr ondansetron 4 mg disintegrating 4 mg PO Q4H PRN Nausea 12/21/23 06/28/24 History tablet Patient History Medical History (Updated 06/29/24 @ 09:34 by Amy Fung PA-C) HTN (hypertension), benign Tremor Surgical History (Updated 12/21/23 @ 09:34 by Lorene Nieves) S/P placement of cardiac pacemaker Social History Smoking Status: Former smoker Tobacco Type: Cigarettes Hx Alcohol Use: No Hx Substance Use: No Preferred Language: [place] Communication Ability: Effective Environmental Services Manager Required: No Beliefs That Will Affect Care: None Current Living Situation: Family Current Living Situation Comment: daughter Other Information That Helps Us Care for You: No Feels Safe at Home: Yes Safety Concerns: Feels Safe At This Time Assistive Devices: Cane, Walker and Wheelchair Results & Data Vital Signs (Past 12 Hours) Vital Signs Temp Pulse Pulse Resp BP BP Pulse Ox 06/28/24 14:58 36.5 C 92 H 18 145/74 H 96 06/28/24 14:32 90 22 128/77 97 06/28/24 13:31 87 20 162/119 H 95 06/28/24 10:12 94 H 19 164/93 H 94 06/28/24 09:09 102 H 18 130/102 H 95 06/28/24 08:32 89 19 125/71 98 06/28/24 07:06 86 18 148/89 H 98 06/28/24 06:01 79 17 113/79 99 06/28/24 05:32 89 06/28/24 05:31 88 18 165/122 H 97 06/28/24 05:27 87 06/28/24 05:00 87 16 191/113 H 94 06/28/24 04:33 92 H 18 160/124 H 91 O2 Del Method O2 Flow Rate 06/28/24 14:58 Nasal Cannula 2 06/28/24 14:32 Nasal Cannula 2 06/28/24 13:31 Nasal Cannula 2 06/28/24 10:12 Nasal Cannula 2 06/28/24 09:09 Nasal Cannula 2 06/28/24 08:32 Nasal Cannula 2 06/28/24 07:06 Nasal Cannula 2 06/28/24 06:01 Room Air 06/28/24 05:32 06/28/24 05:31 Room Air 06/28/24 05:27 06/28/24 05:00 Room Air 06/28/24 04:33 Room Air PG Care Time/CCT Total # of Minutes Spent Total Time Spent with Patient: Total time spent is greater than 50% in coordination of care (as documented) at patient's floor/unit and/or counseling patient: Coding Level of Care Code 42553 INT INP/OBS CARE 140MIN
--- NOTE | 2024-06-28 15:59 | Communication Note ---
Patient seen and examined at bedside. Patient doing well today, feels better after Lasix dose. Breathing much better. Discussed Plan of care and he was appreciative of the update. Will give another dose of Lasix tonight, incentive spirometry, flutter valve, physical therapy and Occupational Therapy given his diffuse weakness. Date of Service: June 28, 2024
[2024-06-28] MEDS: FUROSEMIDE INJ 20 MG/2 ML VIAL IV ONE (16:28)
[2024-06-28] MEDS: ACETAMINOPHEN 325 MG TAB PO PRN (17:22)
[2024-06-28] MEDS: ATORVASTATIN 10 MG TAB PO SCH (21:24)
[2024-06-28] MEDS: AMOXICILLIN/CLAVULANATE 875 MG TAB PO SCH (21:24)
[2024-06-29 06:35] LABS: Hematocrit (blood only) 27.1 % (42.0-52.0); Hemoglobin 7.7 g/dl (14.0-18.0); Mean Corpuscular Hemoglobin 22.1 pg (25.0-34.0); Mean Corpuscular Hgb Conc 28.4 g/dL (32.0-36.0); Mean Corpuscular Volume 77.9 fL (80.0-100.0); Platelet Count 109 K/uL (130-400); RDW Coefficient of Variation 19.8 % (11.5-14.5); RDW Standard Deviation 55.3 fL (36.4-46.3); Red Blood Count 3.48 M/uL (4.70-6.10); White Blood Count 5.53 K/ul (4.8-10.8)
[2024-06-29 06:58] LABS: BUN Creatinine Ratio 24.2 (10-20); Creatinine Clr Calc Pharmacy 55.4 ml/min; Magnesium 2.1 mg/dl (1.7-2.4); Potassium 4.7 mmol/L (3.5-5.1)
--- NOTE | 2024-06-29 08:35 | Cardiology Consultation ---
Date of Consultation June 29, 2024 Assessment & Plan (1) Acute heart failure with preserved ejection fraction: (2) Pleural effusion: (3) Closed fracture nasal bone: (4) Chronic atrial fibrillation: Plan Patient admitted after a fall, fracturing his nasal bone. ENT to evaluate patient today to verify no surgical intervention is required He already received Eliquis this morning. Hold PM dose if surgery is required. OR if hbg continues to drop. Hbg 9.0 on admission, 8.7 yesterday, and now 7.7 this morning. Repeat this afternoon with iron studies. Patient also reported SOB/Cough/congestion x1 week upon admission Found to have b/l pleural effusions on admission, consistent with acute on chronic HFpEF exacerbation. Started on IV lasix 40 mg. Continue IV diuretics today. Add spironolactone 12.5 mg daily this morning. Monitor I+O's. Standing weight every AM recommended. He is down 3 kg from admission. Will need furosemide/spironolactone on discharge. Continue metoprolol 25 mg daily for afib. Rates controlled. He has dual chamber pacemaker and appropriate function per recent interrogation May 2024. Continue other home medications including ASA, statin, isosorbide Case discussed with Dr. Craft. Will follow. I spent a total of 50 minutes on the date of service in preparation, delivery, and documentation of the care provided to this patient, excluding any time spent in the performance of separately billed services. Amy Fung PA-C Department of Cardiology, [facility] This chart was completed in part utilizing Speech Voice Recognition Software. Grammatical errors, random word insertions, pronoun errors, and incomplete sentences are an occasional consequence of this system due to software limitations, ambient noise, and hardware issues. Any formal questions or concerns about the content, text, or information contained within the body of this dictation should be directly addressed to the provider for clarification. Supervising Physician Co-Signing Physician Notes Patient was seen and examined. Care and management as outlined by advanced provider as above. Discussed recommendations and personally endorsed 88-year-old male who suffered a mechanical fall at home with resultant ER presentation. Found with signs and symptoms of volume overload/bilateral pleural effusions consistent with acute on chronic heart failure with preserved ejection fraction. Currently being treated. Issues since admission include facial fracture healing, microcytic anemia. Recommendations as above continue IV furosemide additional day though volume status appears to be improving. Add spironolactone continue previous medications. Iron studies ordered as part of heart failure management I spent a total of 30 minutes coordinating, documenting, and providing care for this patient excluding time spent in the performance of separately billed services or time spent by another provider/QHP. History of Present Illness Reason for Consultation: SOB; CHF Requesting Physician: Dr. Kitchen Attending Physician: Dr. Craft History of Present Illness Patient is an 88 year old male who presented to [facility] after a fall where he hit his face on the toilet or sink. He has also been complaining of worsening SOB x1 week with cough/congestion. Upon presenting to ER, diagnosed with nasal bone fracture from fall. ENT to evaluate patient today and verify no surgical intervention is required. Has significant ecchymosis/hematoma of the right eye. On Eliquis. He reports fall was mechanical. He usually walks with a walker but he only grabbed his cane getting out of bed and upon reaching the bathroom, he got "wobbly" on the area rug and lost his balance. no reports of dizziness. He did not lose consciousness. He called for his daughter. He reports SOB/cough and congestion x1 week otherwise. Respiratory panel was negative. No fever or chills. He does not weigh himself but reports his weight is usually 245-250. Upon arrival, his weight was recorded as 263. He does not take diuretics as an outpatient. Chest xray and chest CT revealed b/l pleural effusions. Started on IV lasix 40 mg daily. Since admission he is down about 3 Kg and 1.2 L output recorded overnight. HR was elevated on admission, consistent with afib RVR. HR's now improved with oral/home dose metoprolol Hbg dropped from 8.7 to 7.7 this morning. No chest pain reported. At time of consult, patient feeling "better". Reports his cough and SOB improving from admission. No chest pain. No palpitations. Edema persists. History includes: 1. Hypertension 2. Permanent atrial fibrillation a. [id number] score of 6 (Age 2, CVA 2, DM, HTN) on Eliquis 3. Sick sinus syndrome s/p dual chamber permanent pacemaker ([employer]), 04/11/2022 4. Carotid stenosis, 50-69% stenosis bilaterally, per duplex 11/2022 5. AAA, per duplex 11/2022 6. Hyperlipidemia 7. CKD 8. History of TIA 9. History of DVT 10. Type 2 diabetes 11. Former tobacco user Allergies Allergy/AdvReac Type Severity Reaction Status Date / Time cat dander Allergy Sneezing Verified 06/28/24 05:23 Home Medications Medication Instructions Recorded Confirmed Type albuterol sulfate 90 mcg/actuation 2 puff inhalation QID PRN Wheezing 12/21/23 06/28/24 History aerosol inhaler apixaban 5 mg tablet 5 mg PO BID 12/21/23 06/28/24 History aspirin 81 mg chewable tablet 81 mg PO DAILY 12/21/23 06/28/24 History atorvastatin 10 mg tablet 10 mg PO QPM 12/21/23 06/28/24 History cyanocobalamin (vitamin B-12) 500 500 mcg PO WK 12/21/23 06/28/24 History mcg tablet fluticasone 250 mcg-salmeterol 50 1 inh inhalation BID 12/21/23 06/28/24 History mcg/dose blistr powdr for inhalation fluticasone furoate 100 1 inh inhalation DAILY 12/21/23 06/28/24 History mcg-vilanterol 25 mcg/dose inhalation powder isosorbide mononitrate 60 mg 60 mg PO DAILY 12/21/23 06/28/24 History tablet,extended release 24 hr metformin 1,000 mg tablet 500 mg PO BID 12/21/23 06/28/24 History metoprolol succinate 25 mg 25 mg PO DAILY 12/21/23 06/28/24 History tablet,extended release 24 hr ondansetron 4 mg disintegrating 4 mg PO Q4H PRN Nausea 12/21/23 06/28/24 History tablet Patient History Medical History (Updated 06/29/24 @ 09:34 by Amy Fung PA-C) HTN (hypertension), benign Tremor Surgical History (Updated 12/21/23 @ 09:34 by Lorene Nieves) S/P placement of cardiac pacemaker Social History Smoking Status: Former smoker Tobacco Type: Cigarettes Hx Alcohol Use: No Hx Substance Use: No Preferred Language: Nauruan Communication Ability: Effective Appointment Scheduler Required: No Beliefs That Will Affect Care: None Current Living Situation: Family Current Living Situation Comment: daughter Other Information That Helps Us Care for You: No Feels Safe at Home: Yes Safety Concerns: Feels Safe At This Time Assistive Devices: Cane, Denture - Upper, Denture - Lower, Hearing Aid - Bilateral and Walker Review of Systems Review of Systems: All systems reviewed & are unremarkable except as noted in HPI & below Physical Exam Constitutional: WD/WN, vitals as above + obese; no acute distress Eyes: hematoma/ecchymosis of the right orbit Neck: + thick neck Respiratory: + cough; no labored breathing Auscult ation: + diminished lung sounds and + crackles Cardiovascular: Rate/Rhythm: + irregularly irregular Heart Sounds: + murmur (II/ systolic murmur) Vessels: no JVD Extremities: + edema (1+ pretibial edema b/l) Gastrointestinal (Abdomen): normal bowel sounds, soft, nontender, no hepatosplenomegaly Neurologic: PERRL, EOMI, accommodation nl, no face palsy, no dysarthria Results & Data Vital Signs (Past 12 Hours) Vital Signs Temp Pulse Resp BP Pulse Ox O2 Del Method O2 Flow Rate 06/29/24 07:28 36.6 C 74 18 128/78 98 Nasal Cannula 2 06/29/24 03:39 36.8 C 80 20 147/81 H 94 Nasal Cannula 2 06/28/24 23:36 36.5 C 82 20 137/81 96 Nasal Cannula 2 06/28/24 22:19 Nasal Cannula 3 Laboratory Results CBC 06/28/24 06/29/24 Range/Units 08:37 06:06 WBC 6.48 5.53 (4.8-10.8) K/ul RBC 3.94 L 3.48 L (4.70-6.10) M/uL Hgb 8.7 L 7.7 L (14.0-18.0) g/dl Hct 31.3 L 27.1 L (42.0-52.0) % Plt Count 124 L 109 L (130-400) K/uL Neut # (Auto) 5.08 (1.40-6.50) K/uL Lymph # (Auto) 0.77 L (1.20-3.40) K/uL Menard # (Auto) 0.54 (0.11-0.59) K/uL Eos # (Auto) 0.05 (0.00-0.50) K/uL Baso # (Auto) 0.02 (0.00-0.20) K/uL Comprehensive Metabolic Panel 06/28/24 06/29/24 Range/Units 08:37 06:06 Sodium 139 139 (136-145) mmol/L Potassium 4.5 4.7 (3.5-5.1) mmol/L Chloride 107 103 (98-107) mmol/L Carbon Dioxide 27 30 (21-32) mmol/L BUN 28 H 30 H (6-23) mg/dl Creatinine 1.12 1.24 (0.6-1.4) mg/dl Glucose 110 H 115 H (70-99(Fasting)) mg/dl Calcium 9.0 9.0 (8.6-10.3) mg/dl Intake and Output 06/28/24 06/29/24 06/29/24 22:59 06:59 14:59 Intake Total 200 / 475 275 / 475 Output Total 975 / 1225 250 / 1225 Balance -775 / -750 25 / -750 Intake: Oral 200 / 475 275 / 475 Output: Urine 975 / 1225 250 / 1225 Other: Weight 116.7 kg Weight Measurement Method Built in [facility] Diagnostic Findings Telemetry reviewed: Rate controlled atrial fib with intermittent PVC's and ventricular pacing EKG reviewed from admission: Atrial fibrillation/flutter with RVR Echo reviewed from 06/28/24: LV is normal in size Mild concentric LVH LVEF 55-60% Aortic valve sclerosis moderate without . Moderate Mitral calcification Mild MR Mild TR RV systolic pressure is borderline elevated at 30-40 mmHG Mild aortic root dilatation at 3.8 cm Chest X-Ray 06/28/24 01:48 IMPRESSION: 1. Blunting of both costophrenic angles suggests bilateral pleural effusion more marked on the right side. 2. Veiling/ground glass opacity of the right lower lung zone, in the clinical setting of trauma pulmonary aspiration/hemorrhage, should be considered. Electronically signed by Frankie Beckwith 06-28-2024 03:[address] 06/28/24 03:10 IMPRESSION: 1. Bilateral moderate pleural effusion with adjacent basal atelectasis. Suggested aspiration and analysis. 2. Diffuse mosaic attenuation in bilateral lungs. Likely small airway disease. 3. Mediastinal lymphadenopathy - likely reactive. Electronically signed by Jesus Farnsworth 06-28-2024 05:25 AM Medications Administered Current Inpatient Medications Acetaminophen (Acetaminophen 325 Mg Tab) 650 mg PO Q4H PRN PRN Reason: pain/fever Stop: 07/28/24 08:24 Last Admin: 06/29/24 06:31 Dose: 650 mg Albuterol (Albuterol Hfa 8 Gm Inhaler) 2 puffs INH QID PRN PRN Reason: Wheezing Stop: 07/28/24 08:24 Albuterol (Albut/Ipratrop 3mg/0.5mg Neb 3 Ml Vial) 3 ml NEB Q6R PRN; Protocol PRN Reason: Shortness Of Breath Or Wheezing Stop: 07/28/24 08:24 Amoxicillin/Clavulanate Potassium (Amoxicillin/Clavulanate 875 Mg Tab) 1 tab PO BIDM [facility]; Protocol Stop: 07/05/24 20:59 Last Admin: 06/29/24 08:02 Dose: 1 tab Apixaban (Apixaban 5 Mg Tablet) 5 mg PO BID [facility] Stop: 07/28/24 08:59 Last Admin: 06/29/24 08:02 Dose: 5 mg Aspirin (Aspirin 81 Mg Ectab) 81 mg PO DAILY [facility] Stop: 07/28/24 08:59 Last Admin: 06/29/24 08:02 Dose: 81 mg Atorvastatin Calcium (Atorvastatin 10 Mg Tab) 10 mg PO QPM XUAN Stop: 07/28/24 20:59 Last Admin: 06/28/24 21:24 Dose: 10 mg Fluticasone/Vilanterol (Fluticasone/Vilanterol 200/25mcg 14 Puffs/Inhaler) 1 puffs INH DAILY [facility] Stop: 07/28/24 09:44 Last Admin: 06/29/24 08:02 Dose: 1 puffs Furosemide (Furosemide 40 Mg/4 Ml Vial) 40 mg IV DAILY [facility] Stop: 07/28/24 08:59 Last Admin: 06/29/24 08:02 Dose: 40 mg Guaifenesin/Dextromethorphan (Guaifenesin/Dextrom Syrup 100mg/10mg 5ml Udc) 5 ml PO Q6H PRN PRN Reason: Cough Stop: 07/28/24 08:24 Isosorbide Mononitrate (Isosorbide Menard Extended Rel 60 Mg Tabcr) 60 mg PO DAILY [facility] Stop: 07/28/24 08:59 Last Admin: 02/05/25 08:02 Dose: 60 mg Metoprolol Succinate (Metoprolol Succ 25mg Ext Rel Tab) 25 mg PO DAILY XUAN Stop: 07/28/24 08:59 Last Admin: 06/29/24 08:02 Dose: 25 mg Oxycodone HCl (Oxycodone Hcl Ir 5 Mg Tab (Immediate Release)) 10 mg PO Q4 PRN PRN Reason: Severe Pain (Scale 7, 8, 9,10) Stop: 07/12/24 16:13 Polyethylene Glycol (Polyethylene (Miralax) 17 Gm Pack) 17 gm PO DAILY PRN PRN Reason: Constipation Stop: 07/28/24 08:24
[2024-06-29] MEDS: SPIRONOLACTONE 12.5 MG TAB PO SCH (10:34)
[2024-06-29] MEDS: guaiFENesin 600 MG TABCR PO SCH (11:44)
--- NOTE | 2024-06-29 11:50 | CT Scan Report ---
CT hip RT wo con CLINICAL HISTORY: pain, fall, r.o fracture COMPARISON STUDY: None FINDINGS: There are mild degenerative changes. No fracture or dislocation. There is an 11 cm cranioca udad by 7 cm axial hematoma in the subcutaneous fatty tissues lateral to the proximal right femur. IMPRESSION: 1. No fracture seen. 2. Lateral soft tissue hematoma. ACT 112: Negative or not required by law. Electronically signed by: Jimy Gaming M.D. 06/29/2024 11:47 AM
--- NOTE | 2024-06-29 11:52 | CT Scan Report ---
CT shoulder RT wo con CLINICAL HISTORY: fall, pain, r/o fracture COMPARISON STUDY: None FINDINGS: There is moderate AC joint and mild glenohumeral joint osteoarthritis. No fracture or dislo cation seen at the right shoulder. No soft tissue hematoma seen. Right pleural effusion is stable com pared to the chest CT yesterday. IMPRESSION: No fracture or dislocation seen at the right shoulder. ACT 112: Negative or not required by law. Electronically signed by: Jimy Gaming M.D. 06/29/2024 11:50 AM
[2024-06-29 12:38] LABS: Hematocrit (blood only) 27.5 % (42.0-52.0); Hemoglobin 7.9 g/dl (14.0-18.0)
[2024-06-29] MEDS: IPRATROPIUM BROMIDE NEB SOLN 0.02% 0.5MG/2.5ML VIAL NEB SCH (13:41)
[2024-06-29] MEDS: LEVALBUTEROL 1.25 MG/3 ML NEB NEB SCH (13:41)
--- NOTE | 2024-06-29 17:03 | Hospitalist Progress Note ---
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 Patient says having dry cough and shortness of breath for about a week now. He ambulates with a walker. Last night he has to go to bathroom and ambulated with cane and was wobbly and fell in the bathroom and hit his head. No loss of consciousness. Was brought in here and found to have bruise around right eye region. Currently denies any headache. Vision is okay. Denies runny nose. No fevers. Denies chest pain. No nausea. No abdominal pain. Normal bowel and bladder movements. Resting comfortably. Acute on chronic diastolic CHF Having cough and shortness of breath going on for 1 week Mild pedal edema present CT chest shows moderate pleural effusion and possible aspiration Treating with IV Lasix 40 mg daily I's and O's. Daily weights Will follow echo Telemetry Cardiac consult for further recommendations 2/5 Still on O2 Continue Lasix IV daily Started on p.o. spironolactone Appreciate cardiology service recommendation Possible aspiration On Augmentin Speech evaluation Fall Bruise on the right side of the face CT head and CT cervical spine is okay Face CT shows nasal and maxillary fractures Will consult maxillofacial surgery Placed on Augmentin PT OT when stable 2/5 CT shoulder and right hip: No fracture Continue PT OT evaluation Anemia Likely secondary to hematoma Continue to monitor hemoglobin Permanent atrial fibrillation Status post pacemaker On metoprolol and Eliquis - Hold Eliquis for now in light of hematoma and anemia Diabetes Hold metformin Sliding scale Will monitor Hypertension On Imdur, metoprolol succinate Will monitor Hyperlipidemia On statin DVT prophylaxis Eliquis- hold Disposition Med/Telemetry Full code Admission and Anticipated Discharge Date Admission Date: June 28, 2024 Subjective Follow-up for CHF exacerbation, etc. Seen resting in bed, comfortable, not in distress States he feels improved overall Reports right shoulder pain and right hip pain Has occasional cough No chest pain, shortness of breath, palpitations Review of Systems Review of Systems: all noted and negative except for above Physical Exam Physical Exam: General- oriented x 3, not in distress, speaks in sentences with no effort or accessory muscle use Eyes- anicteric Neck- no JVD Lungs-mild rales at the bases no wheezing Heart- normal rate, regular rhythm; no murmurs Abdomen- normal bowel sounds, nondistended, soft, nontender Extremities- no pretibial edema, no calf tenderness R hip: (+) hematoma Neuro- alert, oriented x 3; no gross focal neurologic deficits Skin- warm & dry Results & Data Results & Data Vital Signs (Past 12 Hours) Vital Signs Temp Pulse Resp BP Pulse Ox O2 Del Method O2 Flow Rate 06/29/24 16:45 Room Air 06/29/24 16:24 100 Nasal Cannula 1 06/29/24 15:32 76 06/29/24 15:09 36.4 C L 105 H 18 117/61 93 Nasal Cannula 2 06/29/24 13:41 118 H 18 99 Nasal Cannula 2 06/29/24 12:06 36.4 C L 76 18 137/88 99 Nasal Cannula 99 06/29/24 08:02 Nasal Cannula 2 06/29/24 07:28 36.6 C 74 18 128/78 98 Nasal Cannula 2 all noted and reviewed including below
[2024-06-30 06:47] LABS: Estimated Average Glucose 114 mg/dl; Hemoglobin A1C 5.6 % (4.5-5.6)
[2024-06-30 08:25] LABS: Hemoglobin 7.2 g/dl (14.0-18.0); Mean Corpuscular Hemoglobin 22.1 pg (25.0-34.0); Mean Corpuscular Hgb Conc 28.8 g/dL (32.0-36.0); Mean Corpuscular Volume 76.7 fL (80.0-100.0); Mean Platelet Volume 10.5 fL (9.4-12.4); Platelet Count 101 K/uL (130-400); RDW Coefficient of Variation 19.6 % (11.5-14.5); RDW Standard Deviation 54.1 fL (36.4-46.3); Red Blood Count 3.26 M/uL (4.70-6.10); White Blood Count 6.38 K/ul (4.8-10.8)
[2024-06-30 08:35] LABS: Calcium 8.8 mg/dl (8.6-10.3); Creatinine Clr Calc Pharmacy 54.9 ml/min; Magnesium 2.1 mg/dl (1.7-2.4); Potassium 4.4 mmol/L (3.5-5.1)
[2024-06-30] MEDS ORDERED: LEVALBUTEROL 1.25 MG/3 ML NEB NEB PRN (09:10)
[2024-06-30] MEDS ORDERED: IPRATROPIUM BROMIDE NEB SOLN 0.02% 0.5MG/2.5ML VIAL NEB PRN (09:10)
[2024-06-30] MEDS ORDERED: SODIUM CHLORIDE 0.9% 100 ML IV PRN (09:19)
[2024-06-30] MEDS ORDERED: SODIUM CHLORIDE 0.9% 50 ML IV PRN (09:19)
[2024-06-30] MEDS: FERROUS SULFATE 325 MG TAB PO SCH (10:14)
[2024-06-30] MEDS: ADVANCED PROBIOTIC 625 MG CAPSULE PO SCH (10:14)
[2024-06-30] MEDS: levoFLOXacin 750 MG TAB PO SCH (10:49)
[2024-06-30] MEDS: diphenhydrAMINE Capsule 25 MG CAP PO ONE (11:01)
[2024-06-30] MEDS: ACETAMINOPHEN 325 MG TAB PO ONE (11:01)
--- NOTE | 2024-06-30 11:09 | Cardiology Progress Note ---
Date of Service June 30, 2024 Assessment & Plan (1) Acute heart failure with preserved ejection fraction: (2) Pleural effusion: (3) Closed fracture nasal bone: (4) Chronic atrial fibrillation: Plan Patient admitted after a fall, fracturing his nasal bone. ENT to evaluate p atient today to verify no surgical intervention is required He already received Eliquis this morning. Hold PM dose if surgery is required. OR if hbg continues to drop. Hbg 9.0 on admission, 8.7 yesterday, and now 7.7 this morning. Repeat this afternoon with iron studies. Patient also reported SOB/Cough/congestion x1 week upon admission Found to have b/l pleural effusions on admission, consistent with acute on chronic HFpEF exacerbation. Started on IV lasix 40 mg. Continue IV diuretics today. Add spironolactone 12.5 mg daily this morning. Monitor I+O's. Standing weight every AM recommended. He is down 3 kg from admission. Will need furosemide/spironolactone on discharge. Continue metoprolol 25 mg daily for afib. Rates controlled. He has dual chamber pacemaker and appropriate function per recent interrogation May 2024. Continue other home medications including ASA, statin, isosorbide 06/30/2024 His respiratory status clinically improving though heart rates trending high. Suspect in part being driven by anemia, pain Mild lower extremity edema only no jugular venous distention Recommendations: 1. Acute on chronic diastolic heart failure/preserved ejection fraction cli nically improving. Will hold IV furosemide after dose today. Continue spironolactone. 2. Chronic atrial fibrillation with elevated ventricular response rate. Will increase metoprolol to succinate to 25 mg twice per day. Rates may being driven higher by pain and anemia. No concerns with bradycardia arrhythmias with indwelling pacemaker. Eliquis on hold due to a large leg hematoma 3. Anemia low threshold for transfusion with further drop Admission and Anticipated Discharge Date Admission Date: June 28, 2024 Subjective Patient seen and examined, chart, medications, telemetry reviewed. Main complaints right hip pain. No worsening shortness of breath. Heart rates however are trending higher. Physical Exam Constitutional: WD/WN, vitals as above + obese; no acute distress Neck: + thick neck Respiratory: no labored breathing Auscultation: + diminished lung sounds and + crackles Cardiovascular: Rate/Rhythm: + irregularly irregular Heart Sounds: + murmur (II/ systolic murmur) Vessels: no JVD Extremities: + edema (1+ pretibial edema b/l) Gastrointestinal (Abdomen): normal bowel sounds, soft, nontender, no hepa tosplenomegaly Musculoskeletal: Large ecchymosis right hip Neurologic: PERRL, EOMI, accommodation nl, no face palsy, no dysarthria Results & Data Vital Signs (Past 12 Hours) Vital Signs Temp Pulse Pulse Resp BP Pulse Ox O2 Del Method 06/30/24 08:46 Nasal Cannula 06/30/24 07:43 36.5 C 125 H 18 133/84 96 Room Air 06/30/24 07:08 114 H 06/30/24 06:17 109 H 17 98 Nasal Cannula 06/30/24 04:36 36.6 C 115 H 20 159/82 H 98 Nasal Cannula 06/30/24 01:08 37.0 C 108 H 20 117/70 95 Nasal Cannula 06/30/24 00:48 112 H 19 95 Nasal Cannula 06/29/24 23:34 107 H 06/29/24 23:19 Nasal Cannula O2 Flow Rate 06/30/24 08:46 2 06/30/24 07:43 06/30/24 07:08 06/30/24 06:17 2 06/30/24 04:36 2 06/30/24 01:08 2 06/30/24 00:48 2 06/29/24 23:34 06/29/24 23:19 2 Laboratory Results Laboratory Results - last 24 hr 06/28/24 06/29/24 06/30/24 08:37 12:16 07:30 WBC 6.38 RBC 3.26 L Hgb 7.9 L 7.2 L Hct 27.5 L 25.0 L MCV 76.7 L MCH 22.1 L MCHC 28.8 L RDW Std Deviation 54.1 H RDW Coeff of Pedrito 19.6 H Plt Count 101 L MPV 10.5 Sodium 137 Potassium 4.4 Chloride 101 Carbon Dioxide 30 Anion Gap 6 BUN 31 H Creatinine 1.24 Est Cr Clr Drug Dosing 54.9 eGFR 56.27 BUN/Creatinine Ratio 25.0 H Glucose 127 H Estimat Average Glucose 114 Hemoglobin A1c 5.6 Calcium 8.8 Magnesium 2.1 Blood Type Blood Type Recheck Antibody Screen Crossmatch 06/30/24 06/30/24 09:41 09:45 WBC RBC Hgb Hct MCV MCH MCHC RDW Std Deviation RDW Coeff of Pedrito Plt Count MPV Sodium Potassium Chloride Carbon Dioxide Anion Gap BUN Creatinine Est Cr Clr Drug Dosing eGFR BUN/Creatinine Ratio Glucose Estimat Average Glucose Hemoglobin A1c Calcium Magnesium Blood Type A Positive Blood Type Recheck A Positive Antibody Screen NEGATIVE Crossmatch See Detail
[2024-06-30 15:30] LABS: Hematocrit (blood only) 27.1 % (42.0-52.0)
--- NOTE | 2024-06-30 18:53 | Hospitalist Progress Note ---
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 Patient says having dry cough and shortness of breath for about a week now. He ambulates with a walker. Last night he has to go to bathroom and ambulated with cane and was wobbly and fell in the bathroom and hit his head. No loss of consciousness. Was brought in here and found to have bruise around right eye region. Currently denies any headache. Vision is okay. Denies runny nose. No fevers. Denies chest pain. No nausea. No abdominal pain. Normal bowel and bladder movements. Resting comfortably. Acute on chronic diastolic CHF Having cough and shortness of breath going on for 1 week Mild pedal edema present CT chest shows moderate pleural effusion and possible aspiration Treating with IV Lasix 40 mg daily I's and O's. Daily weights Will follow echo Telemetry Cardiac consult for further recommendations 2/ Still on O2 Continue Lasix IV daily Started on p.o. spironolactone Appreciate cardiology service recommendation Possible aspiration On Augmentin Speech evaluation 2/ Diuresing well -2 L fluid balance Lasix held for today, continued on spironolactone p.o. Monitor closely Sputum culture growing Pseudomonas Stop Augmentin, start Levaquin Hypertonic saline twice daily Fall Bruise on the right side of the face CT head and CT cervical spine is okay Face CT shows nasal and maxillary fractures Will consult maxillofacial surgery Placed on Augmentin PT OT when stable 2/ CT shoulder and right hip: No fracture Continue PT OT evaluation Anemia, Acute blood loss Likely secondary to hematoma -- Hemoglobin trended down, currently 7.2 1 unit of packed RBCs ordered Repeat hemoglobin 8 Monitor closely Hold Eliquis and aspirin for now Permanent atrial fibrillation Status post pacemaker On metoprolol and Eliquis - Hold Eliquis for now in light of hematoma and anemia 2/ Patient was in RVR overnight Likely secondary to anemia, hypoxia Transfused with 1 unit of packed RBCs Metoprolol XL increased to 25 mg p.o. twice daily Monitor closely Appreciate cardiology service recommendations Diabetes Hold metformin Sliding scale Will monitor Hypertension On Imdur, metoprolol succinate Will monitor Hyperlipidemia On statin DVT prophylaxis Eliquis- hold for anemia, hematoma Disposition pending Full code Admission and Anticipated Discharge Date Admission Date: June 28, 2024 Subjective Follow-up for acute CHF exacerbation, etc. Events overnight noted Patient seen resting in bed, comfortable, on 2 L of O2 States he feels about the same as yesterday Still having some productive cough, breathing is okay No fevers or chills, chest pain, dizziness, palpitations No abdominal pain, nausea vomiting Would like to ambulate in the room No other new symptom Review of Systems Review of Systems: all noted and negative except for above Physical Exam Physical Exam: General- oriented x 3, not in distress, speaks in sentences with no effort or accessory muscle use Eyes- anicteric Neck- no JVD Lungs- Mild crackles bilaterally at the bases, no wheezing Heart-Mild tachycardia, irregularly irregular rhythm, no murmurs Abdomen- normal bowel sounds, nondistended, soft, nontender Extremities- no pretibial edema, no calf tenderness Neuro- alert, oriented x 3; no gross focal neurologic deficits Skin- warm & dry Results & Data Results & Data Vital Signs (Past 12 Hours) Vital Signs Temp Pulse Pulse Resp BP BP Pulse Ox 06/30/24 14:38 107 H 06/30/24 14:10 36.5 C 99 H 20 114/69 98 06/30/24 13:10 36.4 C L 103 H 20 114/62 98 06/30/24 12:09 36.6 C 107 H 20 122/74 98 06/30/24 11:40 36.4 C L 110 H 18 130/72 97 06/30/24 11:25 36.8 C 103 H 20 129/82 96 06/30/24 11:09 36.6 C 113 H 120/72 95 06/30/24 08:46 06/30/24 07:43 36.5 C 125 H 18 133/84 96 06/30/24 07:08 114 H O2 Del Method O2 Flow Rate 06/30/24 14:38 06/30/24 14:10 2 06/30/24 13:10 2 02/06/25 12:09 2 06/30/24 11:40 06/30/24 11:25 2 06/30/24 11:09 2 06/30/24 08:46 Nasal Cannula 2 06/30/24 07:43 Room Air 06/30/24 07:08 all noted and reviewed including below
[2024-06-30] MEDS: METOPROLOL SUCC 25MG EXT REL TAB PO SCH (19:59)
[2024-06-30] MEDS: SODIUM CHLOR 7% 4 ML NEB NEB SCH (20:35)
[2024-07-01] MEDS: oxyCODONE HCL IR 5 MG TAB (IMMEDIATE RELEASE) PO PRN (07:43)
[2024-07-01 08:40] LABS: Hemoglobin 8.2 g/dl (14.0-18.0); Mean Corpuscular Hemoglobin 22.8 pg (25.0-34.0); Mean Corpuscular Hgb Conc 29.3 g/dL (32.0-36.0); Mean Platelet Volume 11.5 fL (9.4-12.4); Platelet Count 109 K/uL (130-400); RDW Standard Deviation 53.6 fL (36.4-46.3); Red Blood Count 3.59 M/uL (4.70-6.10); White Blood Count 7.45 K/ul (4.8-10.8)
[2024-07-01 09:07] LABS: BUN Creatinine Ratio 22.2 (10-20); Calcium 8.9 mg/dl (8.6-10.3); Creatinine Clr Calc Pharmacy 47.3 ml/min; Magnesium 2.2 mg/dl (1.7-2.4); Potassium 4.5 mmol/L (3.5-5.1)
[2024-07-01] MEDS: LIDOCAINE 5% 1 PATCH TD SCH (10:45)
--- NOTE | 2024-07-01 11:11 | Cardiology Progress Note ---
Date of Service July 01, 2024 Assessment & Plan (1) Acute heart failure with preserved ejection fraction: (2) Pleural effusion: (3) Closed fracture nasal bone: (4) Chronic atrial fibrillation: Plan Patient admitted after a fall, fracturing his nasal bone. ENT to evaluate p atient today to verify no surgical intervention is required He already received Eliquis this morning. Hold PM dose if surgery is required. OR if hbg continues to drop. Hbg 9.0 on admission, 8.7 yesterday, and now 7.7 this morning. Repeat this afternoon with iron studies. Patient also reported SOB/Cough/congestion x1 week upon admission Found to have b/l pleural effusions on admission, consistent with acute on chronic HFpEF exacerbation. Started on IV lasix 40 mg. Continue IV diuretics today. Add spironolactone 12.5 mg daily this morning. Monitor I+O's. Standing weight every AM recommended. He is down 3 kg from admission. Will need furosemide/spironolactone on discharge. Continue metoprolol 25 mg daily for afib. Rates controlled. He has dual chamber pacemaker and appropriate function per recent interrogation May 2024. Continue other home medications including ASA, statin, isosorbide 06/30/2024 His respiratory status clinically improving though heart rates trending high. Suspect in part being driven by anemia, pain Mild lower extremity edema only no jugular venous distention Recommendations: 1. Acute on chronic diastolic heart failure/preserved ejection fraction cli nically improving. Will hold IV furosemide after dose today. Continue spironolactone. 2. Chronic atrial fibrillation with elevated ventricular response rate. Will increase metoprolol to succinate to 25 mg twice per day. Rates may being driven higher by pain and anemia. No concerns with bradycardia arrhythmias with indwelling pacemaker. Eliquis on hold due to a large leg hematoma 3. Anemia low threshold for transfusion with further drop 07/01/2024 1. Acute on chronic diastolic heart failure/preserved ejection fraction clinically improving. Furosemide on hold heart rate slightly higher oxygen saturates mildly diminished. Consider repeat chest x-ray 2. Chronic atrial fibrillation with elevated ventricular response rate. Will increase metoprolol to succinate to 50 mg twice per day. Rates may being driven higher by pain and anemia. No concerns with bradycardia arrhythmias with indwelling pacemaker. Eliquis on hold due to a large leg hematoma 3. Anemia improved posttransfusion Admission and Anticipated Discharge Date Admission Date: June 28, 2024 Subjective Patient seen and examined, chart, medications, telemetry reviewed. No chest pain or discomfort, hurts all over. Greatest right hip received 1 unit transfusion yesterday. Heart rate still somewhat high. Renal function with slight rise in creatinine maintains good oral intake. O2 sats marginal on room air Physical Exam Constitutional: WD/WN, vitals as above + obese; no acute distress Neck: + thick neck Respiratory: + cough; no labored breathing Auscult ation: + diminished lung sounds and + crackles Cardiovascular: Rate/Rhythm: + irregularly irregular Heart Sounds: + murmur (II/ systolic murmur) Vessels: no JVD Extremities: + edema (1+ pretibial edema b/l) Gastrointestinal (Abdomen): normal bowel sounds, soft, nontender, no hepatosplenomegaly Neurologic: PERRL, EOMI, accommodation nl, no face palsy, no dysarthria Results & Data Vital Signs (Past 12 Hours) Vital Signs Temp Pulse Pulse Resp BP Pulse Ox O2 Del Method 07/01/24 08:06 37.0 C 122 H 20 122/78 90 Room Air 07/01/24 07:57 Room Air 07/01/24 07:34 94 H 18 91 Room Air 07/01/24 07:27 104 H 07/01/24 06:13 99 H 20 120/75 90 Room Air 07/01/24 03:01 37.0 C 116 H 20 105/60 92 Room Air 06/30/24 23:27 37.0 C 70 20 100/61 96 Room Air 06/30/24 23:20 Room Air 06/30/24 23:19 92 H Laboratory Results Laboratory Results - last 24 hr 06/30/24 06/30/24 07/01/24 09:41 15:09 06:48 WBC 7.45 RBC 3.59 L Hgb 8.0 L 8.2 L Hct 27.1 L 28.0 L MCV 78.0 L MCH 22.8 L MCHC 29.3 L RDW Std Deviation 53.6 H RDW Coeff of Pedrito 19.0 H Plt Count 109 L MPV 11.5 Sodium 135 L Potassium 4.5 Chloride 100 Carbon Dioxide 28 Anion Gap 7 BUN 32 H Creatinine 1.44 H Est Cr Clr Drug Dosing 47.3 eGFR 47.03 BUN/Creatinine Ratio 22.2 H Glucose 102 H Calcium 8.9 Magnesium 2.2 Crossmatch See Detail
--- NOTE | 2024-07-01 12:04 | XRay Report ---
XR chest 1V portable CLINICAL HISTORY: Hypoxia, tachycardia COMPARISON STUDY: 06/28/2024 FINDINGS: Stable pacemaker. Stable cardiomegaly with mild pulmonary vascular congestion. There is mil d residual opacity in the lung bases with mild blunting of the costophrenic angles, improved. No pneu mothorax. IMPRESSION: 1. Mild CHF, improved. 2. Small bilateral pleural effusions and associated lung base consolidation, improved. ACT 112: Negative or not required by law. Electronically signed by: Jimy Gaming M.D. 07/01/2024 12:03 PM
--- NOTE | 2024-07-01 16:23 | Hospitalist Progress Note ---
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 Patient says having dry cough and shortness of breath for about a week now. He ambulates with a walker. Last night he has to go to bathroom and ambulated with cane and was wobbly and fell in the bathroom and hit his head. No loss of consciousness. Was brought in here and found to have bruise around right eye region. Currently denies any headache. Vision is okay. Denies runny nose. No fevers. Denies chest pain. No nausea. No abdominal pain. Normal bowel and bladder movements. Resting comfortably. Acute on chronic diastolic CHF Having cough and shortness of breath going on for 1 week Mild pedal edema present CT chest shows moderate pleural effusion and possible aspiration Treating with IV Lasix 40 mg daily I's and O's. Daily weights Will follow echo Telemetry Cardiac consult for further recommendations 07/01 O2 supplement now weaned off Received IV Lasix Started on p.o. spironolactone Appreciate cardiology service recommendation Possible aspiration On Augmentin Speech evaluation 07/01 Diuresing well -2.4 L fluid balance Lasix held, continued on spironolactone p.o. Sputum culture growing Pseudomonas Stop Augmentin, started Levaquin Hypertonic saline twice daily Respiratory status improving Fall Bruise on the right side of the face CT head and CT cervical spine is okay Face CT shows nasal and maxillary fractures Will consult maxillofacial surgery Placed on Augmentin PT OT when stable 07/01 CT shoulder and right hip: No fracture Continue PT OT evaluation Anemia, Acute blood loss Likely secondary to hematoma -- Hemoglobin trended down, currently 7.2 1 unit of packed RBCs ordered Repeat hemoglobin 8 Monitor closely Hold Eliquis and aspirin for now 07/01 -Hemoglobin stable at 8.2 Hold Eliquis and aspirin for today, consider resuming tomorrow if hemoglobin remained stable Permanent atrial fibrillation Status post pacemaker On metoprolol and Eliquis - Hold Eliquis for now in light of hematoma and anemia 06/30 Patient was in RVR overnight Likely secondary to anemia, hypoxia Transfused with 1 unit of packed RBCs Metoprolol XL increased to 25 mg p.o. twice daily Monitor closely Appreciate cardiology service recommendations 07/01 Heart rate 100s Metoprolol XL increased to 50 mg p.o. twice daily Monitor closely Diabetes Hold metformin Sliding scale Will monitor Hypertension On Imdur, metoprolol succinate Will monitor Hyperlipidemia On statin DVT prophylaxis Eliquis- hold for anemia, hematoma Disposition pending Full code Admission and Anticipated Discharge Date Admission Date: June 28, 2024 Subjective Follow-up for CHF exacerbation, etc. Seen resting in bed, comfortable, not in distress On room air States he is having some posterior neck pain and right hip pain today Denies weakness or numbness States breathing is improving Less cough, no chest pain, shortness of breath No other new symptom Review of Systems Review of Systems: all noted and negative except for above Physical Exam Physical Exam: General- oriented x 3, not in distress, speaks in sentences with no effort or accessory muscle use Eyes- anicteric Neck- no JVD Lungs- Faint rales bilateral bases, no wheezing Heart- normal rate, regular rhythm; no murmurs Abdomen- normal bowel sounds, nondistended, soft, nontender Extremities- no pretibial edema, no calf tenderness Neuro- alert, oriented x 3; no gross focal neurologic deficits Skin- warm & dry Results & Data Results & Data Vital Signs (Past 12 Hours) Vital Signs Temp Pulse Pulse Resp BP BP Pulse Ox 07/01/24 14:59 36.6 C 100 H 20 109/70 91 07/01/24 14:21 111 H 07/01/24 11:56 36.6 C 102 H 16 112/72 92 07/01/24 08:06 37.0 C 122 H 20 122/78 90 07/01/24 07:57 07/01/24 07:34 94 H 18 91 07/01/24 07:27 104 H 07/01/24 06:13 99 H 20 120/75 90 O2 Del Method 07/01/24 14:59 Room Air 07/01/24 14:21 07/01/24 11:56 Room Air 07/01/24 08:06 Room Air 07/01/24 07:57 Room Air 07/01/24 07:34 Room Air 07/01/24 07:27 07/01/24 06:13 Room Air all noted and reviewed including below
[2024-07-01] MEDS: METOPROLOL SUCC 50MG EXT REL TAB PO SCH (20:02)
[2024-07-01] MEDS: traMADol HCL 50 MG TABLET PO PRN (20:03)
[2024-07-01] MEDS: METOPROLOL TARTRATE 1 MG/ML VIAL IV STA (21:54)
[2024-07-02 09:31] LABS: BUN Creatinine Ratio 27.9 (10-20); Calcium 9.1 mg/dl (8.6-10.3); Creatinine Clr Calc Pharmacy 48.5 ml/min; Potassium 4.4 mmol/L (3.5-5.1)
[2024-07-02] MEDS: POLYETHYLENE (MIRALAX) 17 GM PACK PO PRN (09:38)
[2024-07-02 09:46] LABS: Hematocrit (blood only) 27.6 % (42.0-52.0); Mean Corpuscular Volume 79.3 fL (80.0-100.0); Mean Platelet Volume 10.9 fL (9.4-12.4); Platelet Count 115 K/uL (130-400); RDW Coefficient of Variation 20.2 % (11.5-14.5); RDW Standard Deviation 55.6 fL (36.4-46.3); Red Blood Count 3.48 M/uL (4.70-6.10); White Blood Count 7.49 K/ul (4.8-10.8)
[2024-07-02 10:02] LABS: Anisocytosis Present; Basophils # (auto) 0.01 K/uL (0.00-0.20); Basophils % (auto) 0.1 %; Eosinophils # (auto) 0.05 K/uL (0.00-0.50); Eosinophils % (auto) 0.7 %; Immature Granulocytes # (auto) 0.03 K/uL (0.01-0.20); Immature Granulocytes % (auto) 0.4 %; Lymphocytes # (auto) 0.79 K/uL (1.20-3.40); Lymphocytes % (auto) 10.5 %; Monocytes # (auto) 0.56 K/uL (0.11-0.59); Monocytes % (auto) 7.5 %; Neutrophils # (auto) 6.05 K/uL (1.40-6.50); Neutrophils % (auto) 80.8 %; Polychromasia 2+; Tear Drop Cells 1+
--- NOTE | 2024-07-02 14:35 | Hospitalist Progress Note ---
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 Patient says having dry cough and shortness of breath for about a week now. He ambulates with a walker. Last night he has to go to bathroom and ambulated with cane and was wobbly and fell in the bathroom and hit his head. No loss of consciousness. Was brought in here and found to have bruise around right eye region. Currently denies any headache. Vision is okay. Denies runny nose. No fevers. Denies chest pain. No nausea. No abdominal pain. Normal bowel and bladder movements. Resting comfortably. Acute on chronic diastolic CHF Having cough and shortness of breath going on for 1 week Mild pedal edema present CT chest shows moderate pleural effusion and possible aspiration Treating with IV Lasix 40 mg daily I's and O's. Daily weights Will follow echo Telemetry Cardiac consult for further recommendations 07/01 O2 supplement now weaned off Received IV Lasix Started on p.o. spironolactone Appreciate cardiology service recommendation 07/02 remains on room air continue Spironolactone off Lasix Pseudomonas Pneumonia On Augmentin Speech evaluation 07/01 Diuresing well -2.4 L fluid balance Lasix held, continued on spironolactone p.o. Sputum culture growing Pseudomonas Stop Augmentin, started Levaquin Hypertonic saline twice daily Respiratory status improving 07/02 respiratory status stable continue Levaquin PO Hypertonic saline BID Fall Bruise on the right side of the face CT head and CT cervical spine is okay Face CT shows nasal and maxillary fractures Will consult maxillofacial surgery Placed on Augmentin PT OT when stable 07/01 CT shoulder and right hip: No fracture Continue PT OT evaluation 07/02 will need acute Rehab or SNF Anemia, Acute blood loss Likely secondary to hematoma -- Hemoglobin trended down, currently 7.2 1 unit of packed RBCs ordered Repeat hemoglobin 8 Monitor closely Hold Eliquis and aspirin for now 07/01 -Hemoglobin stable at 8.2 Hold Eliquis and aspirin 2/8 Hg stable possible resume Eliquis and Aspirin 5 days since last dose Permanent atrial fibrillation Status post pacemaker On metoprolol and Eliquis - Hold Eliquis for now in light of hematoma and anemia 06/30 Patient was in RVR overnight Likely secondary to anemia, hypoxia Transfused with 1 unit of packed RBCs Metoprolol XL increased to 25 mg p.o. twice daily Monitor closely Appreciate cardiology service recommendations 07/01 Heart rate 100s Metoprolol XL increased to 50 mg p.o. twice daily Monitor closely 2/8 HR 90s continue Metoprolol XL 50mg BID Diabetes Hold metformin Sliding scale Will monitor Hypertension On Imdur, metoprolol succinate Will monitor Hyperlipidemia On statin DVT prophylaxis Eliquis- hold for anemia, hematoma Disposition pending Full code Admission and Anticipated Discharge Date Admission Date: June 28, 2024 Subjective ff up for chf exacerbation, etc seen resting in chair, on room air comfortable states he feels ok overall breathing continues to improve no cough no palpitations, dizziness no other symptoms Review of Systems Review of Systems: all noted and negative except for above Physical Exam Physical Exam: General- oriented x 3, not in distress, speaks in sentences with no effort or accessory muscle use Eyes- anicteric Neck- no JVD Lungs- very faint rales at the bases, no wheezing Heart- normal rate, regular rhythm; no murmurs Abdomen- normal bowel sounds, nondistended, soft, nontender Extremities- no pretibial edema, no calf tenderness Neuro- alert, oriented x 3; no gross focal neurologic deficits Skin- warm & dry Results & Data Results & Data Vital Signs (Past 12 Hours) Vital Signs Temp Pulse Pulse Resp BP BP Pulse Ox 07/02/24 13:38 95 H 07/02/24 11:23 36.8 C 81 18 102/66 94 07/02/24 08:15 07/02/24 07:32 36.7 C 94 H 18 136/79 93 07/02/24 07:20 90 07/02/24 02:29 36.8 C 79 18 118/70 91 O2 Del Method 07/02/24 13:38 07/02/24 11:23 Room Air 07/02/24 08:15 Room Air 07/02/24 07:32 Room Air 07/02/24 07:20 07/02/24 02:29 Room Air all noted and reviewed including below
[2024-07-03 06:10] LABS: Hematocrit (blood only) 27.8 % (42.0-52.0); Hemoglobin 8.1 g/dl (14.0-18.0); Mean Corpuscular Hgb Conc 29.1 g/dL (32.0-36.0); Mean Platelet Volume 10.6 fL (9.4-12.4); Platelet Count 113 K/uL (130-400); RDW Coefficient of Variation 20.8 % (11.5-14.5); Red Blood Count 3.52 M/uL (4.70-6.10); White Blood Count 6.25 K/ul (4.8-10.8)
[2024-07-03 06:24] LABS: BUN Creatinine Ratio 32.1 (10-20); Calcium 9.1 mg/dl (8.6-10.3); Creatinine Clr Calc Pharmacy 48.6 ml/min; Potassium 4.5 mmol/L (3.5-5.1)
[2024-07-03 06:31] LABS: Anisocytosis Present; Basophils # (auto) 0.01 K/uL (0.00-0.20); Basophils % (auto) 0.2 %; Eosinophils % (auto) 1.6 %; Immature Granulocytes # (auto) 0.03 K/uL (0.01-0.20); Immature Granulocytes % (auto) 0.5 %; Lymphocytes # (auto) 0.82 K/uL (1.20-3.40); Lymphocytes % (auto) 13.1 %; Microcytosis Present; Monocytes # (auto) 0.52 K/uL (0.11-0.59); Monocytes % (auto) 8.3 %; Neutrophils # (auto) 4.77 K/uL (1.40-6.50); Neutrophils % (auto) 76.3 %; Polychromasia 2+
[2024-07-03] MEDS ORDERED: PROMETHAZINE 12.5 MG/50.5 ML BAG IV PRN (07:46)
[2024-07-03] MEDS ORDERED: levoFLOXacin 750 MG TAB PO SCH (09:00)
[2024-07-03] MEDS: LACTULOSE SYRUP 20 GM/30 ML UDC PO ONE (09:20)
--- NOTE | 2024-07-03 11:59 | CT Scan Report ---
CT head/brain wo con CLINICAL HISTORY: 88 years-old Male with confusion, slurred speech, r/o acute cva. Acutely altered m ental status TECHNIQUE: Multiple axial CT images of the head were obtained without contrast. A dose lowering tech nique was utilized adhering to the principles of ALARA. CT DOSE: 691.62 mGy.cm COMPARISON: 06/28/2024 FINDINGS: No acute intracranial hemorrhage, midline shift, intracranial mass, hydrocephalus, territorial ischem ia or abnormal extra-axial collection. Cavum septum lucidum and vergae. Extraocular ventriculomegaly redemonstrated. Involutional changes with chronic microvascular ischemic disease. 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 The calvarium is intact. Polypoid because of thickening of the left maxillary sinus with mild to mod erate mucosal thickening of the ethmoid air cells. Chronic appearing right nasal bone fracture. Masto id air cells are clear. IMPRESSION: 1. No acute intracranial abnormality. 2. 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 ACT 112: Negative or not required by law. The above report was generated using voice recognition software. It may contain grammatical, syntax o r spelling errors. Electronically signed by: Blair Ramsey M.D. 07/03/2024 11:57 AM
[2024-07-03] MEDS: HEPARIN 25000 UNIT/500 ML D5W 25,000 UNITS/500 ML BAG IV SCH (14:33)
[2024-07-03 14:48] LABS: Basophils # (auto) 0.01 K/uL (0.00-0.20); Basophils % (auto) 0.1 %; Eosinophils # (auto) 0.05 K/uL (0.00-0.50); Eosinophils % (auto) 0.7 %; Hematocrit (blood only) 28.6 % (42.0-52.0); Hemoglobin 8.3 g/dl (14.0-18.0); Immature Granulocytes # (auto) 0.02 K/uL (0.01-0.20); Immature Granulocytes % (auto) 0.3 %; Lymphocytes # (auto) 0.77 K/uL (1.20-3.40); Lymphocytes % (auto) 10.9 %; Mean Corpuscular Hemoglobin 22.8 pg (25.0-34.0); Mean Corpuscular Volume 78.6 fL (80.0-100.0); Mean Platelet Volume 9.7 fL (9.4-12.4); Monocytes # (auto) 0.51 K/uL (0.11-0.59); Monocytes % (auto) 7.2 %; Neutrophils # (auto) 5.69 K/uL (1.40-6.50); Neutrophils % (auto) 80.8 %; Platelet Count 114 K/uL (130-400); Red Blood Count 3.64 M/uL (4.70-6.10); White Blood Count 7.05 K/ul (4.8-10.8)
[2024-07-03 15:01] LABS: INR 1.1 (0.9-1.1); Partial Thromboplastin Ratio 1.1; Partial Thromboplastin Time 29 Seconds (21-31); Prothrombin Time 11.9 Seconds (9.0-12.0)
[2024-07-03 15:04] LABS: Anisocytosis Present; Polychromasia 1+
--- NOTE | 2024-07-03 15:04 | Hospitalist Progress Note ---
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 Patient says having dry cough and shortness of breath for about a week now. He ambulates with a walker. Last night he has to go to bathroom and ambulated with cane and was wobbly and fell in the bathroom and hit his head. No loss of consciousness. Was brought in here and found to have bruise around right eye region. Currently denies any headache. Vision is okay. Denies runny nose. No fevers. Denies chest pain. No nausea. No abdominal pain. Normal bowel and bladder movements. Resting comfortably. Episode of dysarthria CT head: No acute process Brain MRI: Pending Telestroke consult performed, neurologist recommending to resume anticoagulation when able Hemoglobin has been stable x 4 days Hematoma resolved In light of possible TIA in the setting of atrial fibrillation, will resume anticoagulation but will start with low-dose heparin drip, if no signs of rebleeding, will resume usual Eliquis in 24 to 48 hours Will follow-up brain MRI , Discussed with personal care assistant, pacemaker is [employer]tr[employer], MRI compatible Acute on chronic diastolic CHF Having cough and shortness of breath going on for 1 week Mild pedal edema present CT chest shows moderate pleural effusion and possible aspiration Treating with IV Lasix 40 mg daily I's and O's. Daily weights Will follow echo Telemetry Cardiac consult for further recommendations 07/01 O2 supplement now weaned off Received IV Lasix Started on p.o. spironolactone Appreciate cardiology service recommendation 07/02 remains on room air continue Spironolactone off Lasix 07/03 Appears euvolemic Continue spironolactone Pseudomonas Pneumonia On Augmentin Speech evaluation 07/01 Diuresing well -2.4 L fluid balance Lasix held, continued on spironolactone p.o. Sputum culture growing Pseudomonas Stop Augmentin, started Levaquin Hypertonic saline twice daily Respiratory status improving 07/02 respiratory status stable continue Levaquin PO Hypertonic saline BID 07/03 Rate stable Continue Levaquin p.o. Fall Bruise on the right side of the face CT head and CT cervical spine is okay Face CT shows nasal and maxillary fractures Will consult maxillofacial surgery Placed on Augmentin PT OT when stable 07/01 CT shoulder and right hip: No fracture Continue PT OT evaluation 07/02 will need acute Rehab or SNF Anemia, Acute blood loss Likely secondary to hematoma -- Hemoglobin trended down, currently 7.2 1 unit of packed RBCs ordered Repeat hemoglobin 8 Monitor closely Hold Eliquis and aspirin for now 07/01 -Hemoglobin stable at 8.2 Hold Eliquis and aspirin / Hg stable possible resume Eliquis and Aspirin 5 days since last dose Permanent atrial fibrillation Status post pacemaker On metoprolol and Eliquis - Hold Eliquis for now in light of hematoma and anemia 06/30 Patient was in RVR overnight Likely secondary to anemia, hypoxia Transfused with 1 unit of packed RBCs Metoprolol XL increased to 25 mg p.o. twice daily Monitor closely Appreciate cardiology service recommendations 07/01 Heart rate 100s Metoprolol XL increased to 50 mg p.o. twice daily Monitor closely 07/02 HR 90s continue Metoprolol XL 50mg BID 07/03 Heart rate 80s Continue metoprolol XL 50 mg p.o. twice daily Resume anticoagulation with heparin low-dose no bolus Diabetes Hold metformin Sliding scale Will monitor Hypertension On Imdur, metoprolol succinate Will monitor Hyperlipidemia On statin DVT prophylaxis Eliquis- hold for anemia, hematoma Disposition Will need acute rehab versus [facility] facility Full code Admission and Anticipated Discharge Date Admission Date: June 28, 2024 Subjective Follow-up for CHF exacerbation, etc. Noted to have slurred speech around 11:15 AM Examined at bedside, awake and alert, oriented x 3 Answering questions appropriately Denies focal weakness or numbness Reports his speech was somewhat garbled a while ago Stroke alert called CT head no acute process Discussed with telestroke neurologist, recommend to resume anticoagulation when bleeding risk resolved Review of Systems Review of Systems: all noted and negative except for above Physical Exam Physical Exam: General- oriented x 3, not in distress, speaks in sentences with no effort or accessory muscle use Eyes- anicteric Neck- no JVD Lungs- clear breath sounds bilaterally no wheezing Heart- normal rate, regular rhythm; no murmurs Abdomen- normal bowel sounds, nondistended, soft, no tenderness Extremities- no pretibial edema, no calf tenderness Neuro- alert, oriented x 3; no gross focal neurologic deficits Skin- warm & dry Results & Data Results & Data Vital Signs (Past 12 Hours) Vital Signs Temp Pulse Pulse Resp BP Pulse Ox O2 Del Method 07/03/24 14:37 84 07/03/24 11:55 90 18 129/90 95 Room Air 07/03/24 11:30 36.7 C 94 H 20 135/83 97 Room Air 07/03/24 11:17 35.8 C L 114 H 20 151/93 H 97 Room Air 07/03/24 08:00 Room Air 07/03/24 07:49 36.6 C 80 18 120/73 95 Room Air 07/03/24 07:20 80 07/03/24 03:42 36.8 C 89 20 103/64 94 Room Air all noted and reviewed including below
[2024-07-03 21:30] LABS: ANTI-Xa, UFH(UnfractionatedHep 0.14 IU/ml (0.3-0.7)
[2024-07-03] MEDS: HEPARIN SOD (PORCINE) 1000 UNIT/ML IV ONE (22:19)
[2024-07-03] MEDS: Heparin IV Adult Wt-Based Low-Dose *NO* INITIAL Bolus Protocol IV STA (22:23)
[2024-07-04 05:19] LABS: ANTI-Xa, UFH(UnfractionatedHep 0.25 IU/ml (0.3-0.7)
[2024-07-04 05:21] LABS: Hematocrit (blood only) 26.5 % (42.0-52.0); Hemoglobin 7.7 g/dl (14.0-18.0); Mean Corpuscular Hemoglobin 23.1 pg (25.0-34.0); Mean Corpuscular Hgb Conc 29.1 g/dL (32.0-36.0); Mean Corpuscular Volume 79.6 fL (80.0-100.0); Mean Platelet Volume 10.4 fL (9.4-12.4); Platelet Count 108 K/uL (130-400); RDW Coefficient of Variation 21.2 % (11.5-14.5); RDW Standard Deviation 57.7 fL (36.4-46.3); Red Blood Count 3.33 M/uL (4.70-6.10); White Blood Count 5.78 K/ul (4.8-10.8)
[2024-07-04 05:22] LABS: Anisocytosis Present; Basophils # (auto) 0.02 K/uL (0.00-0.20); Basophils % (auto) 0.3 %; Eosinophils # (auto) 0.09 K/uL (0.00-0.50); Eosinophils % (auto) 1.6 %; Hypochromasia Present; Immature Granulocytes # (auto) 0.02 K/uL (0.01-0.20); Immature Granulocytes % (auto) 0.3 %; Lymphocytes % (auto) 15.6 %; Monocytes # (auto) 0.55 K/uL (0.11-0.59); Monocytes % (auto) 9.5 %; Neutrophils % (auto) 72.7 %; Polychromasia 1+
[2024-07-04] MEDS: levoFLOXacin 750 MG TAB PO SCH (08:06)
[2024-07-04 11:50] LABS: Hemoglobin 7.5 g/dl (14.0-18.0)
[2024-07-04 12:10] LABS: ANTI-Xa, UFH(UnfractionatedHep 0.22 IU/ml (0.3-0.7)
[2024-07-04] MEDS ORDERED: SODIUM CHLORIDE 0.9% 100 ML IV PRN (12:34)
[2024-07-04] MEDS ORDERED: SODIUM CHLORIDE 0.9% 50 ML IV PRN (12:34)
--- NOTE | 2024-07-04 13:20 | Magnetic Resonance Report ---
MRI OF THE BRAIN WITHOUT CONTRAST CLINICAL HISTORY: dysarthria, r/o acute cva COMPARISON STUDY: Head CT July 03, 2024. TECHNIQUE: Utilizing a 1.5 Janessa magnet and dedicated coil, multiplanar, multiecho imaging of the bra in was performed without IV contrast. FINDINGS: There are no foci of restricted diffusion to suggest acute infarct. No acute intracranial h emorrhage, midline shift or mass effect is present. Cavum septum pellucidum is incidentally noted. Th e ventricular system is unremarkable. Atrophy is noted. There are no extra axial collections. Basal c isterns are patent. Flow-voids for the major intracranial vessels are present. No intracranial masses are identified on unenhanced exam. White matter T2 hyperintense foci suggest moderate small vessel d isease. 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 IMPRESSION: No acute intracranial findings. ACT 112: Negative or not required by law. Electronically signed by: Manjit Davis M.D. 07/04/2024 1:18 PM
--- NOTE | 2024-07-04 14:00 | Orthopedic Consultation ---
Date of Service July 04, 2024 Assessment & Plan (1) Hematoma of right hip: Assessment: Hematoma right hip. Plan: I had a long discussion today with the patient about his right hip pathology with ample amount of time for patient ask any question or stating concerns. All questions and concerns were answered to the patient satisfaction. At this point in time, he is dealing with a right hip hematoma of the lateral soft tissue after a fall. He is anticoagulated with Eliquis and aspirin. Currently he is anticoagulated with heparin secondary to stroke like symptoms. At this point in time, I feel that there would not be any benefit to evacuation of the hematoma. I do feel that since he has to be anticoagulated at this point in time, the hematoma site itself will just refill. This can be conservatively treated at this point. I did discuss with the nurse the possibility of using compressive dressing over the right lower extremity. This may be a little difficult due to the patient's body habitus as well as where the hematoma site is in in general. There was a repeated CT today of the right hip. Will monitor to see what this shows. Recommendation would be to continue conservative treatment with elevation and icing to the right lateral hip. Continue to monitor H&H's. Defer to medicine for use of DVT prophylaxis. Pain and medical management per primary. Continue with the ice and elevation procedures. Restrict activities that bring on discomfort to the right lower extremity. May be weightbearing as tolerated. Please reach out to [facility] orthopedics if any other questions or concerns arise in the meantime. History of Present Illness Reason for Consultation: . Right hip hematoma Requesting Physician: . Attending Physician: Leo Kitchen MD . Patient is an 88-year-old gentleman who we are asked to see on consultation for a right hip hematoma. Patient has been falling asleep today during my evaluation so the history is provided today by past notes as well as his nurses present in the room during my examination. Patient unfortunately fell in his home back around June and came to the hospital after the fall as well as having shortness of breath a week prior. During his stay here, he has been treated for multiple comorbidities including hip hematoma. Unfortunately he started having a decrease in his H&H. He is on anticoagulation which is Eliquis and aspirin due to his chronic atrial fibrillation. They have since held his Eliquis and aspirin. Unfortunately he started having strokelike symptoms so the hospitalist service did start him on heparin so he can be heparinized just in case. He does note discomfort around the right lateral hip and does say it radiates down his leg. He denies any low back pain, distal extremity pain, numbness/tingling, or paresthesias. He denies any other concerns today. Allergies Allergy/AdvReac Type Severity Reaction Status Date / Time cat dander Allergy Sneezing Verified 06/28/24 05:23 Home Medications Medication Instructions Recorded Confirmed Type albuterol sulfate 90 mcg/actuation 2 puff inhalation QID PRN Wheezing 12/21/23 06/28/24 History aerosol inhaler apixaban 5 mg tablet 5 mg PO BID 12/21/23 06/28/24 History aspirin 81 mg chewable tablet 81 mg PO DAILY 12/21/23 06/28/24 History atorvastatin 10 mg tablet 10 mg PO QPM 12/21/23 06/28/24 History cyanocobalamin (vitamin B-12) 500 500 mcg PO WK 12/21/23 06/28/24 History mcg tablet fluticasone 250 mcg-salmeterol 50 1 inh inhalation BID 12/21/23 06/28/24 History mcg/dose blistr powdr for inhalation fluticasone furoate 100 1 inh inhalation DAILY 12/21/23 06/28/24 History mcg-vilanterol 25 mcg/dose inhalation powder isosorbide mononitrate 60 mg 60 mg PO DAILY 12/21/23 06/28/24 History tablet,extended release 24 hr metformin 1,000 mg tablet 500 mg PO BID 12/21/23 06/28/24 History metoprolol succinate 25 mg 25 mg PO DAILY 12/21/23 06/28/24 History tablet,extended release 24 hr ondansetron 4 mg disintegrating 4 mg PO Q4H PRN Nausea 12/21/23 06/28/24 History tablet Past Med/Surg History Problem List (Updated 07/04/24 @ 14:00 by Blair Donald PA-C) Hematoma of right hip Chronic atrial fibrillation Acute heart failure with preserved ejection fraction Acute diastolic (congestive) heart failure Acute hypoxemic respiratory failure (Acute) Pleural effusion (Acute) Head injury (Acute) Closed fracture nasal bone (Acute) Maxillary fracture (Acute) Medical History (Updated 07/04/24 @ 14:00 by Blair Donald PA-C) HTN (hypertension), benign Tremor Surgical History (Updated 12/21/23 @ 09:34 by Lorene Nieves) S/P placement of cardiac pacemaker Social History Smoking Status: Former smoker Tobacco Type: Cigarettes Hx Alcohol Use: No Hx Substance Use: No Preferred Language: German Communication Ability: Effective Leveler Helper Required: No Beliefs That Will Affect Care: None Current Living Situation: Family Current Living Situation Comment: daughter Other Information That Helps Us Care for You: No Feels Safe at Home: Yes Safety Concerns: Feels Safe At This Time Assistive Devices: Cane, Walker and Wheelchair Review of Systems All systems reviewed & are unremarkable except as noted in HPI & below. Physical Exam . Constitutional: WD/WN, vitals as above no acute distress Musculoskeletal: On physical examination of the right lower extremity, he does have ecchymosis diffusely throughout the posterior lateral aspect of the right hip down to the thigh. Does have some anterior proximal ecchymosis noted as well. There is some firmness to palpation around the lateral aspect of the greater trochanter with the remaining thigh soft and palpable. He does have tenderness to palpation along the lateral aspect of his thigh in line with the greater trochanter. Limited range of motion at the bilateral hips secondary to subjective weakness. Does have mild discomfort with active range at the right hip. Calf soft nontender to palpation. Negative Homans' sign. +2 DP and PT pulse. Less than 2-second capillary refill. Normal sensation. Neurovasc intact. Results & Data Results & Data Laboratory Results . Diagnostic Findings . Hip CT 06/29/24 10:19 CT hip RT wo con CLINICAL HISTORY: pain, fall, r.o fracture COMPARISON STUDY: None FINDINGS: There are mild degenerative changes. No fracture or dislocation. There is an 11 cm craniocaudad by 7 cm axial hematoma in the subcutaneous fatty tissues lateral to the proximal right femur. IMPRESSION: 1. No fracture seen. 2. Lateral soft tissue hematoma. ACT 112: Negative or not required by law. Electronically signed by: Jimy Gaming M.D. 06/29/2024 11:47 AM PG Care Time/CCT Total # of Minutes Spent Total Time Spent with Patient: Total time spent is greater than 50% in coordination of care (as documented) at patient's floor/unit and/or counseling patient: Coding Level of Care Code 23105 IN/OBS CONSULT LVL 3,45M Diagnoses Hematoma of right hip, initial encounter S70.01XA Encounter type: initial encounter (1) Hematoma of right hip Encounter type: initial encounter Qualified Code(s): S70.01XA - Contusion of right hip, initial encounter
[2024-07-04] MEDS: ACETAMINOPHEN 325 MG TAB PO ONE (14:02)
[2024-07-04] MEDS: diphenhydrAMINE Capsule 25 MG CAP PO ONE (14:02)
--- NOTE | 2024-07-04 14:22 | CT Scan Report ---
CT hip RT wo con, CT femur RT wo con HISTORY: 88 years-old Male ff up hematoma acute right hip pain COMPARISON: CT right hip 06/29/2024 TECHNIQUE: Multiple axial CT images of the right hip and femur were obtained without IV contrast. A d ose lowering technique was used consistent with the principals of JASMYNE. FINDINGS: CT RIGHT HIP: Subcutaneous hematoma lateral to the right proximal femur/greater trochanter redemonstr ated measuring approximately 7.1 x 3.6 x 11 cm in AP, transverse and craniocaudal dimensions. This is generally unchanged in size. Moderate adjacent subcutaneous contusion with dermal thickening. No int ramuscular extension. Arterial calcifications. Mild atrophy of the musculature. Mild to moderate oste oarthritis. No acute fracture, dislocation or avascular necrosis. No acute intrapelvic abnormality. Prostamegaly. Distended urinary bladder with wall thickening. Indet erminate 11 mm nodular focus is seen anterior to the bladder on image 110 series 3. Moderate colonic fecal retention. CT RIGHT FEMUR: Partially imaged total joint arthroplasty of the knee with patellar resurfacing. Amalia rial calcifications. No acute fracture or dislocation identified. There is additional moderate circum ferential subcutaneous edema throughout the majority of the thigh. Bilateral hydroceles. Trace likely chronic right knee joint effusion with synovial thickening. IMPRESSION: 1. No acute fracture or dislocation. 2. Stable subcutaneous hematoma lateral to the right proximal femur measuring up to approximately 11 cm. 3. [id number] osteoarthritis of the right hip. 4. Additional circumferential subcutaneous edema noted throughout the majority of the thigh is nonspe cific. ACT 112: Negative or not required by law. The above report was generated using voice recognition software. It may contain grammatical, syntax o r spelling errors. Electronically signed by: Blair Ramsey M.D. 07/04/2024 2:20 PM
--- NOTE | 2024-07-04 17:17 | Hospitalist Progress Note ---
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 Patient says having dry cough and shortness of breath for about a week now. He ambulates with a walker. Last night he has to go to bathroom and ambulated with cane and was wobbly and fell in the bathroom and hit his head. No loss of consciousness. Was brought in here and found to have bruise around right eye region. Currently denies any headache. Vision is okay. Denies runny nose. No fevers. Denies chest pain. No nausea. No abdominal pain. Normal bowel and bladder movements. Resting comfortably. Episode of dysarthria CT head: No acute process Brain MRI: Pending Telestroke consult performed, neurologist recommending to resume anticoagulation when able Hemoglobin has been stable x 4 days Hematoma resolved In light of possible TIA in the setting of atrial fibrillation, will resume anticoagulation but will start with low-dose heparin drip, if no signs of rebleeding, will resume usual Eliquis in 24 to 48 hours Will follow-up brain MRI , Discussed with top stop attacher, pacemaker is Medtronic, MRI compatible 07/04 Dysarthria resolved Brain MRI: No acute CVA Hemoglobin decreased to 7.5 Hold heparin drip Continue to monitor close Acute on chronic diastolic CHF Having cough and shortness of breath going on for 1 week Mild pedal edema present CT chest shows moderate pleural effusion and possible aspiration Treating with IV Lasix 40 mg daily I's and O's. Daily weights Will follow echo Telemetry Cardiac consult for further recommendations 07/01 O2 supplement now weaned off Received IV Lasix Started on p.o. spironolactone Appreciate cardiology service recommendation 07/02 remains on room air continue Spironolactone off Lasix 07/03 Appears euvolemic Continue spironolactone 07/04 Euvolemic, continue spironolactone Pseudomonas Pneumonia On Augmentin Speech evaluation 07/01 Diuresing well -2.4 L fluid balance Lasix held, continued on spironolactone p.o. Sputum culture growing Pseudomonas Stop Augmentin, started Levaquin Hypertonic saline twice daily Respiratory status improving 07/02 respiratory status stable continue Levaquin PO Hypertonic saline BID 07/03 Rate stable Continue Levaquin p.o. 07/04 Stable Continue Levaquin Fall Bruise on the right side of the face CT head and CT cervical spine is okay Face CT shows nasal and maxillary fractures Will consult maxillofacial surgery Placed on Augmentin PT OT when stable 07/01 CT shoulder and right hip: No fracture Continue PT OT evaluation 07/02 will need acute Rehab or SNF Anemia, Acute blood loss Likely secondary to hematoma -- Hemoglobin trended down, currently 7.2 1 unit of packed RBCs ordered Repeat hemoglobin 8 Monitor closely Hold Eliquis and aspirin for now 07/01 -Hemoglobin stable at 8.2 Hold Eliquis and aspirin 07/02 Hg stable possible resume Eliquis and Aspirin 5 days since last dose 07/04 Hemoglobin trended down to 7.5 1 unit of packed RBCs ordered Repeat CT of the hip and femur, stable hematoma Orthopedic service consulted Will hold heparin drip for now in light of hemoglobin trending down Continue to monitor closely Permanent atrial fibrillation Status post pacemaker On metoprolol and Eliquis - Hold Eliquis for now in light of hematoma and anemia 06/30 Patient was in RVR overnight Likely secondary to anemia, hypoxia Transfused with 1 unit of packed RBCs Metoprolol XL increased to 25 mg p.o. twice daily Monitor closely Appreciate cardiology service recommendations 07/01 Heart rate 100s Metoprolol XL increased to 50 mg p.o. twice daily Monitor closely 07/02 HR 90s continue Metoprolol XL 50mg BID 07/03 Heart rate 80s Continue metoprolol XL 50 mg p.o. twice daily Resume anticoagulation with heparin low-dose no bolus 07/04 Heart rate controlled Continue metoprolol Hold off on heparin in light of hemoglobin trending down again Monitor closely Diabetes Hold metformin Sliding scale Will monitor Hypertension On Imdur, metoprolol succinate Blood pressure on the softer side Reduce Imdur from 60 to 30 mg Hyperlipidemia On statin DVT prophylaxis Eliquis- hold for anemia, hematoma Disposition Will need acute rehab versus [facility] facility Full code Admission and Anticipated Discharge Date Admission Date: June 28, 2024 Subjective Follow-up for CHF, etc. Seen resting in bed, comfortable, not in distress States his speech is back to normal Denies shortness of breath, cough Denies right hip or leg pain No other signs of bleeding Review of Systems Review of Systems: all noted and negative except for above Physical Exam Physical Exam: General- oriented x 3, not in distress, speaks in sentences with no effort or accessory muscle use Eyes- anicteric Neck- no JVD Lungs- clear breath sounds bilaterally, no rales/wheezes Heart- normal rate, regular rhythm; no murmurs Abdomen- normal bowel sounds, nondistended, soft, nontender Extremities- no pretibial edema, no calf tenderness Right lower extremity: Positive hematoma lateral aspect Neuro- alert, oriented x 3; no gross focal neurologic deficits Skin- warm & dry Results & Data Results & Data Vital Signs (Past 12 Hours) Vital Signs Temp Pulse Pulse Resp BP BP BP 07/04/24 16:05 36.8 C 74 18 126/73 07/04/24 15:35 36.5 C 72 16 126/75 07/04/24 15:20 36.5 C 102 H 18 115/67 07/04/24 15:00 36.5 C 68 18 102/64 07/04/24 14:46 36.5 C 88 18 102/64 07/04/24 11:28 36.9 C 71 14 107/62 07/04/24 10:52 07/04/24 07:54 80 07/04/24 07:38 36.2 C L 70 16 114/70 Pulse Ox O2 Del Method 07/04/24 16:05 97 07/04/24 15:35 93 07/04/24 15:20 98 07/04/24 15:00 95 07/04/24 14:46 92 Room Air 07/04/24 11:28 95 Room Air 07/04/24 10:52 Room Air 07/04/24 07:54 07/04/24 07:38 94 Room Air all noted and reviewed including below
[2024-07-04 20:38] LABS: Hematocrit (blood only) 29.6 % (42.0-52.0); Hemoglobin 8.9 g/dl (14.0-18.0)
[2024-07-05 07:52] LABS: Hematocrit (blood only) 30.7 % (42.0-52.0); Hemoglobin 9.1 g/dl (14.0-18.0); Mean Corpuscular Hemoglobin 24.1 pg (25.0-34.0); Mean Corpuscular Hgb Conc 29.6 g/dL (32.0-36.0); Mean Corpuscular Volume 81.4 fL (80.0-100.0); Mean Platelet Volume 9.9 fL (9.4-12.4); Platelet Count 105 K/uL (130-400); RDW Coefficient of Variation 21.1 % (11.5-14.5); RDW Standard Deviation 59.9 fL (36.4-46.3); Red Blood Count 3.77 M/uL (4.70-6.10); White Blood Count 5.72 K/ul (4.8-10.8)
[2024-07-05] MEDS: ISOSORBIDE MONO EXTENDED REL 30 MG TABCR PO SCH (08:04)
[2024-07-05 08:19] LABS: Anisocytosis Present; Basophils # (auto) 0.02 K/uL (0.00-0.20); Basophils % (auto) 0.3 %; Eosinophils # (auto) 0.11 K/uL (0.00-0.50); Eosinophils % (auto) 1.9 %; Immature Granulocytes # (auto) 0.01 K/uL (0.01-0.20); Immature Granulocytes % (auto) 0.2 %; Lymphocytes # (auto) 0.83 K/uL (1.20-3.40); Lymphocytes % (auto) 14.5 %; Monocytes # (auto) 0.48 K/uL (0.11-0.59); Monocytes % (auto) 8.4 %; Neutrophils # (auto) 4.27 K/uL (1.40-6.50); Neutrophils % (auto) 74.7 %; Polychromasia 1+; Tear Drop Cells 1+
[2024-07-05 15:45] LABS: Appearance Urine Clear (Clear); Bilirubin Urine Negative (Negative); Blood Urine Negative (Negative); Color Urine Yellow; Glucose Urine UA Negative (Negative); Ketones Urine Negative (Negative); Leukocyte Esterase Urine Negative (Negative); Nitrite Urine Negative (Negative); Protein Urine Negative (Negative); Specific Gravity Urine 1.024 (1.000-1.030); Urobilinogen Urine Negative (Negative); pH Urine 5.5 (4.5-7.5)
--- NOTE | 2024-07-05 16:42 | Hospitalist Progress Note ---
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 Patient says having dry cough and shortness of breath for about a week now. He ambulates with a walker. Last night he has to go to bathroom and ambulated with cane and was wobbly and fell in the bathroom and hit his head. No loss of consciousness. Was brought in here and found to have bruise around right eye region. Currently denies any headache. Vision is okay. Denies runny nose. No fevers. Denies chest pain. No nausea. No abdominal pain. Normal bowel and bladder movements. Resting comfortably. Episode of dysarthria Possible TIA in the setting of atrial fibrillation CT head: No acute process Brain MRI: Pending Telestroke consult performed, neurologist recommending to resume anticoagulation when able Hemoglobin has been stable x 4 days Hematoma resolved In light of possible TIA in the setting of atrial fibrillation, will resume anticoagulation but will start with low-dose heparin drip, if no signs of rebleeding, will resume usual Eliquis in 24 to 48 hours Will follow-up brain MRI , Discussed with medical technologist, pacemaker is [employer], MRI compatible 07/04 Dysarthria resolved Brain MRI: No acute CVA Hemoglobin decreased to 7.5 Hold heparin drip Continue to monitor close 07/04 Hemoglobin has been stable since second unit of packed RBCs given yesterday Hemoglobin around 9 Will resume low-dose heparin without bolus today Acute on chronic diastolic CHF Having cough and shortness of breath going on for 1 week Mild pedal edema present CT chest shows moderate pleural effusion and possible aspiration Treating with IV Lasix 40 mg daily I's and O's. Daily weights Will follow echo Telemetry Cardiac consult for further recommendations 07/01 O2 supplement now weaned off Received IV Lasix Started on p.o. spironolactone Appreciate cardiology service recommendation 07/02 remains on room air continue Spironolactone off Lasix 07/03 Appears euvolemic Continue spironolactone 07/04 Euvolemic, continue spironolactone 07/05 Euvolemic, continue spironolactone Pseudomonas Pneumonia On Augmentin Speech evaluation 07/01 Diuresing well -2.4 L fluid balance Lasix held, continued on spironolactone p.o. Sputum culture growing Pseudomonas Stop Augmentin, started Levaquin Hypertonic saline twice daily Respiratory status improving 07/02 respiratory status stable continue Levaquin PO Hypertonic saline BID 07/03 Rate stable Continue Levaquin p.o. 07/04 Stable Continue Levaquin 07/05 Respiratory status stable Continue Levaquin p.o. Fall Bruise on the right side of the face CT head and CT cervical spine is okay Face CT shows nasal and maxillary fractures Will consult maxillofacial surgery Placed on Augmentin PT OT when stable 07/01 CT shoulder and right hip: No fracture Continue PT OT evaluation 07/02 will need acute Rehab or SNF Anemia, Acute blood loss Likely secondary to hematoma -- Hemoglobin trended down, currently 7.2 1 unit of packed RBCs ordered Repeat hemoglobin 8 Monitor closely Hold Eliquis and aspirin for now 07/01 -Hemoglobin stable at 8.2 Hold Eliquis and aspirin /8 Hg stable possible resume Eliquis and Aspirin 5 days since last dose 07/04 Hemoglobin trended down to 7.5 1 unit of packed RBCs ordered Repeat CT of the hip and femur, stable hematoma Orthopedic service consulted Will hold heparin drip for now in light of hemoglobin trending down Continue to monitor closely 07/05 CT of the hip and femur: Stable hematoma Will cautiously resume heparin drip for now as the patient is having TIA symptoms Monitor closely Permanent atrial fibrillation Status post pacemaker On metoprolol and Eliquis - Hold Eliquis for now in light of hematoma and anemia 06/30 Patient was in RVR overnight Likely secondary to anemia, hypoxia Transfused with 1 unit of packed RBCs Metoprolol XL increased to 25 mg p.o. twice daily Monitor closely Appreciate cardiology service recommendations 07/01 Heart rate 100s Metoprolol XL increased to 50 mg p.o. twice daily Monitor closely 07/02 HR 90s continue Metoprolol XL 50mg BID 07/03 Heart rate 80s Continue metoprolol XL 50 mg p.o. twice daily Resume anticoagulation with heparin low-dose no bolus 07/04 Heart rate controlled Continue metoprolol Hold off on heparin in light of hemoglobin trending down again Monitor closely 07/05 Continue metoprolol Will resume heparin drip cautiously today Diabetes Hold metformin Sliding scale Will monitor Hypertension On Imdur, metoprolol succinate Blood pressure on the softer side Reduce Imdur from 60 to 30 mg --Continue to monitor blood pressure Hyperlipidemia On statin DVT prophylaxis Eliquis- hold for anemia, hematoma Disposition Will need acute rehab versus prison facility Full code Admission and Anticipated Discharge Date Admission Date: June 28, 2024 Subjective Follow-up for CHF, A-fib fall resulting to right hip hematoma, etc. Seen resting in bed, comfortable, in good spirits States he feels better today compared to yesterday Less tired No shortness of breath, cough, abdominal pain No right lower extremity discomfort No other new symptoms Review of Systems Review of Systems: all noted and negative except for above Physical Exam Physical Exam: General- oriented x 3, not in distress, speaks in sentences with no effort or accessory muscle use Eyes- anicteric Neck- no JVD Lungs- clear breath sounds bilaterally, no rales/wheezes Heart- normal rate, Irregularly irregular rhythm; no murmurs Abdomen- normal bowel sounds, nondistended, soft, nontender Extremities- no pretibial edema, no calf tenderness Right lower extremity: Positive hematoma on the lateral aspect of the upper and lower leg, unchanged from yesterday Neuro- alert, oriented x 3; no gross focal neurologic deficits Skin- warm & dry Results & Data Results & Data Vital Signs (Past 12 Hours) Vital Signs Temp Pulse Pulse Resp BP Pulse Ox O2 Del Method 07/05/24 15:27 36.5 C 69 16 128/73 95 Room Air 07/05/24 11:29 Room Air 07/05/24 10:28 36.6 C 82 16 102/57 L 95 Room Air 07/05/24 07:22 36.5 C 67 18 116/59 L 94 Room Air 07/05/24 07:09 60 all noted and reviewed including below
[2024-07-05] MEDS: Heparin IV Adult Wt-Based Low-Dose *NO* INITIAL Bolus Protocol IV STA (18:23)
[2024-07-05] MEDS: HEPARIN 25000 UNIT/500 ML D5W 25,000 UNITS/500 ML BAG IV SCH (18:23)
[2024-07-05 18:29] LABS: Hematocrit (blood only) 31.5 % (42.0-52.0); Hemoglobin 9.2 g/dl (14.0-18.0); Mean Corpuscular Hgb Conc 29.2 g/dL (32.0-36.0); Mean Platelet Volume 10.5 fL (9.4-12.4); Nucleated RBC # (auto) 0.02 K/uL (0.00-0.12); Nucleated RBC % (auto) 0.3 %; Platelet Count 116 K/uL (130-400); RDW Coefficient of Variation 21.1 % (11.5-14.5); RDW Standard Deviation 60.1 fL (36.4-46.3); Red Blood Count 3.84 M/uL (4.70-6.10); White Blood Count 6.46 K/ul (4.8-10.8)
[2024-07-05 18:47] LABS: Anisocytosis Present; Basophils # (auto) 0.02 K/uL (0.00-0.20); Basophils % (auto) 0.3 %; Eosinophils # (auto) 0.15 K/uL (0.00-0.50); Eosinophils % (auto) 2.3 %; Immature Granulocytes # (auto) 0.02 K/uL (0.01-0.20); Immature Granulocytes % (auto) 0.3 %; Lymphocytes # (auto) 0.89 K/uL (1.20-3.40); Lymphocytes % (auto) 13.8 %; Monocytes # (auto) 0.45 K/uL (0.11-0.59); Neutrophils # (auto) 4.93 K/uL (1.40-6.50); Neutrophils % (auto) 76.3 %; Polychromasia 1+; Tear Drop Cells 1+
[2024-07-05 18:48] LABS: INR 1.1 (0.9-1.1); Partial Thromboplastin Time 28 Seconds (21-31)
[2024-07-06 01:05] LABS: ANTI-Xa, UFH(UnfractionatedHep 0.13 IU/ml (0.3-0.7)
[2024-07-06] MEDS: HEPARIN SOD (PORCINE) 1000 UNIT/ML IV STA (02:04)
--- NOTE | 2024-07-06 05:58 | Electrocardiogram Report ---
Test Reason : Blood Pressure : */* mmHG Vent. Rate : 89 BPM Atrial Rate : 104 BPM P-R Int : * ms QRS Dur : 106 ms QT Int : 378 ms P-R-T Axes : * -9 40 degrees QTcB Int : 459 ms Atrial fibrillation Nonspecific ST abnormality Abnormal ECG When compared with ECG of 28-Jun-2024 01:07, Atrial fibrillation has replaced Supraventricular tachycardia Confirmed by Ryan Cope ([id number]) on 07/06/2024 5:58:24 AM Referred By: REFERRED SELF Confirmed By: Ryan Cope
[2024-07-06 10:17] LABS: Hematocrit (blood only) 34.1 % (42.0-52.0); Hemoglobin 9.8 g/dl (14.0-18.0); Mean Corpuscular Hemoglobin 23.7 pg (25.0-34.0); Mean Corpuscular Hgb Conc 28.7 g/dL (32.0-36.0); Mean Corpuscular Volume 82.4 fL (80.0-100.0); Mean Platelet Volume 10.5 fL (9.4-12.4); Nucleated RBC # (auto) 0.03 K/uL (0.00-0.12); Nucleated RBC % (auto) 0.5 %; Platelet Count 112 K/uL (130-400); RDW Coefficient of Variation 21.8 % (11.5-14.5); RDW Standard Deviation 61.2 fL (36.4-46.3); Red Blood Count 4.14 M/uL (4.70-6.10); White Blood Count 6.62 K/ul (4.8-10.8)
[2024-07-06 10:19] LABS: Anisocytosis Present; Basophils # (auto) 0.02 K/uL (0.00-0.20); Basophils % (auto) 0.3 %; Eosinophils # (auto) 0.16 K/uL (0.00-0.50); Eosinophils % (auto) 2.4 %; Hypochromasia Present; Immature Granulocytes # (auto) 0.03 K/uL (0.01-0.20); Immature Granulocytes % (auto) 0.5 %; Lymphocytes # (auto) 0.85 K/uL (1.20-3.40); Lymphocytes % (auto) 12.8 %; Monocytes # (auto) 0.43 K/uL (0.11-0.59); Monocytes % (auto) 6.5 %; Neutrophils # (auto) 5.13 K/uL (1.40-6.50); Neutrophils % (auto) 77.5 %
--- NOTE | 2024-07-06 13:51 | Hospitalist Progress Note ---
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 Patient says having dry cough and shortness of breath for about a week now. He ambulates with a walker. Last night he has to go to bathroom and ambulated with cane and was wobbly and fell in the bathroom and hit his head. No loss of consciousness. Was brought in here and found to have bruise around right eye region. Currently denies any headache. Vision is okay. Denies runny nose. No fevers. Denies chest pain. No nausea. No abdominal pain. Normal bowel and bladder movements. Resting comfortably. Acute on chronic diastolic CHF Having cough and shortness of breath going on for 1 week Mild pedal edema present CT chest shows moderate pleural effusion and possible aspiration Received IV Lasix Started on p.o. spironolactone Diuresed well Lasix discontinued Continued on p.o. spironolactone Positive right lower extremity edema today Likely secondary to hematoma Will order Doppler ultrasound to rule out DVT Lasix 20 mg 1 dose p.o. today Pseudomonas Pneumonia Acute Hypoxia Sputum culture :Positive Pseudomonas Stop Augmentin, transitioned to Levaquin (started Jun 30), last day today Hypertonic saline twice daily on room air now, cough resolved Anemia, Acute blood loss Likely secondary to RLE hematoma from Fall Once heparin was resumed, hemoglobin trended down Received total of 2 units of packed RBCs Repeat CT of the hip and femur: stable hematoma Orthopedic service consulted, Okay to resume anticoagulation once hemoglobin stabilized Hemoglobin stable for 24 hours, CT right lower extremity: Stable hematoma Heparin drip low-dose no bolus resumed yesterday Today, hemoglobin stable around 9, no signs of hematoma extension Continue heparin drip today, if hemoglobin stable for the next 24 hours, can likely resume Eliquis twice daily Fall Likely secondary to above Bruise on the right side of the face CT head and CT cervical spine is okay Face CT shows nasal and maxillary fractures, consulted maxillofacial surgery: no procedures CT shoulder and right hip: No fracture will need acute Rehab or SNF Permanent atrial fibrillation with pacemaker Patient was in RVR first few days of admission Likely secondary to anemia, hypoxia Metoprolol XL titrated, increased to 50 mg p.o. twice daily HR controlled Continue heparin drip today, if hemoglobin stable for the next 24 hours, can likely resume Eliquis twice daily Episode of dysarthria Possible TIA in the setting of atrial fibrillation noted 07/03/24 CT head: No acute process Brain MRI: No acute process Telestroke consult performed, neurologist recommending to resume anticoagulation when able In light of possible TIA in the setting of atrial fibrillation, resumed anticoagulation starting with low-dose heparin drip, if no signs of hematoma ex pansion, resume usual Eliquis in 24 to 48 hours Diabetes Hold metformin Sliding scale Will monitor Hypertension On Imdur, metoprolol succinate Blood pressure on the softer side Reduce Imdur from 60 to 30 mg --Continue to monitor blood pressure Hyperlipidemia On statin DVT prophylaxis on heparin drip Disposition Will need acute rehab versus shelter facility Full code Admission and Anticipated Discharge Date Admission Date: June 28, 2024 Subjective Follow-up for acute CHF, etc. Seen resting in bed, comfortable, in good spirits States he feels fine overall Reports right lower leg is more swollen today, mild discomfort No shortness of breath, cough, chest pain No other new symptoms Review of Systems Review of Systems: all noted and negative except for above Physical Exam Physical Exam: General- oriented x 3, not in distress, speaks in sentences with no effort or accessory muscle use Eyes- anicteric Neck- no JVD Lungs- clear breath sounds bilaterally, no rales/wheezes Heart- normal rate, regular rhythm; no murmurs Abdomen- normal bowel sounds, nondistended, soft, nontender Extremities- no pretibial edema, no calf tenderness Right lower extremity: Positive diffuse hematoma on the lateral aspect of the entire leg-stable for the past 3 days Positive grade 1 lower extremity edema mostly on the lower leg No erythema/tenderness/warmth Neuro- alert, oriented x 3; no gross focal neurologic deficits Skin- warm & dry Results & Data Results & Data Vital Signs (Past 12 Hours) Vital Signs Temp Pulse Pulse Pulse Resp BP Pulse Ox 07/06/24 12:35 36.4 C L 72 19 116/68 94 07/06/24 10:41 07/06/24 08:00 65 07/06/24 07:46 36.5 C 60 20 128/70 94 07/06/24 03:43 36.5 C 70 20 124/76 95 O2 Del Method 07/06/24 12:35 Room Air 07/06/24 10:41 Room Air 07/06/24 08:00 07/06/24 07:46 Room Air 07/06/24 03:43 Room Air all noted and reviewed including below
[2024-07-06] MEDS: FUROSEMIDE 20 MG TAB PO STA (14:52)
--- NOTE | 2024-07-06 15:57 | Ultrasound Report ---
US venous doppler LE RT HISTORY: 88 years-old Male leg edema, r/o dvt acute pain and swelling of the right lower leg COMPARISON: CT 07/04/2024 TECHNIQUE: Multiple real-time sonographic images of the right lower extremity deep venous structures were obtained assessing grayscale appearance, color and spectral flow. FINDINGS: Persistent subcutaneous edema. Normal flow, compressibility, phasicity and augmentation. IMPRESSION: No sonographic evidence of deep venous thrombosis. ACT 112: Negative or not required by law. The above report was generated using voice recognition software. It may contain grammatical, syntax o r spelling errors. Electronically signed by: Blair Ramsey M.D. 07/06/2024 3:55 PM
[2024-07-06 17:34] LABS: ANTI-Xa, UFH(UnfractionatedHep 0.21 IU/ml (0.3-0.7)
[2024-07-07 01:08] LABS: ANTI-Xa, UFH(UnfractionatedHep 0.22 IU/ml (0.3-0.7)
[2024-07-07 07:34] VITALS: RESP 16
[2024-07-07 08:10] LABS: BUN Creatinine Ratio 20.8 (10-20); Calcium 8.8 mg/dl (8.6-10.3); Creatinine Clr Calc Pharmacy 44.2 ml/min; Potassium 4.6 mmol/L (3.5-5.1)
[2024-07-07 08:14] LABS: ANTI-Xa, UFH(UnfractionatedHep 0.31 IU/ml (0.3-0.7); Anisocytosis Present; Basophils # (auto) 0.02 K/uL (0.00-0.20); Basophils % (auto) 0.3 %; Eosinophils # (auto) 0.17 K/uL (0.00-0.50); Eosinophils % (auto) 2.6 %; Hemoglobin 9.1 g/dl (14.0-18.0); Immature Granulocytes # (auto) 0.02 K/uL (0.01-0.20); Immature Granulocytes % (auto) 0.3 %; Lymphocytes # (auto) 0.84 K/uL (1.20-3.40); Lymphocytes % (auto) 12.8 %; Mean Corpuscular Hemoglobin 23.6 pg (25.0-34.0); Mean Corpuscular Hgb Conc 28.4 g/dL (32.0-36.0); Mean Corpuscular Volume 82.9 fL (80.0-100.0); Mean Platelet Volume 10.3 fL (9.4-12.4); Monocytes # (auto) 0.45 K/uL (0.11-0.59); Monocytes % (auto) 6.9 %; Neutrophils # (auto) 5.06 K/uL (1.40-6.50); Neutrophils % (auto) 77.1 %; Platelet Count 108 K/uL (130-400); Polychromasia 1+; RDW Coefficient of Variation 22.3 % (11.5-14.5); RDW Standard Deviation 62.9 fL (36.4-46.3); Red Blood Count 3.86 M/uL (4.70-6.10); White Blood Count 6.56 K/ul (4.8-10.8)
[2024-07-07] MEDS: APIXABAN 5 MG TABLET PO SCH (09:56)
[2024-07-07 11:46] VITALS: BP 130/70; PULSE 75; TEMP 97.9; O2SAT 95
--- NOTE | 2024-07-07 13:26 | Discharge Summary ---
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 Patient says having dry cough and shortness of breath for about a week now. He ambulates with a walker. Last night he has to go to bathroom and ambulated with cane and was wobbly and fell in the bathroom and hit his head. No loss of consciousness. Was brought in here and found to have bruise around right eye region. Currently denies any headache. Vision is okay. Denies runny nose. No fevers. Denies chest pain. No nausea. No abdominal pain. Normal bowel and bladder movements. Resting comfortably. Past medical history. As mentioned above Past surgical history. Status post pacemaker Social history. Living with his daughter. Used to smoke in the past. No alcohol use currently. Family history. No famished on file. Admission Exam Per Admitting Provider General- Not in acute distress Head- Swelling and bruise around right eye region Eyes- PERRL. ENT- oropharynx clear Neck- supple, no JVD. Lungs- clear to auscultation mild b/l wheezing present Heart- regular rhythm; no murmur, no gallop. Abdomen- normal bowel sounds, soft, nontender, no distension Extremities- mild pretibial edema present, no erythema seen Neuro- alert, oriented PERRL, no facial palsy; no dysarthria; moves extremities Principal Diagnosis Acute on chronic diastolic CHF Anemia, Acute blood loss Likely secondary to RLE hematoma from Fall Discharge Exam General- oriented x 3, not in distress, speaks in sentences with no effort or accessory muscle use Eyes- anicteric Neck- no JVD Lungs- clear breath sounds bilaterally, no rales/wheezes Heart- normal rate, regular rhythm; no murmurs Abdomen- normal bowel sounds, nondistended, soft, nontender Extremities- no pretibial edema, no calf tenderness Right lower extremity: Positive diffuse hematoma on the lateral aspect of the entire leg-stable Positive grade 1 lower extremity edema mostly on the lower leg Neuro- alert, oriented x 3; no gross focal neurologic deficits Skin- warm & dry Discharge Data Allergies Allergy/AdvReac Type Severity Reaction Status Date / Time cat dander Allergy Sneezing Verified 06/28/24 05:23 Consultations 06/28/24 03:41 ED Decision to Admit Stat 06/28/24 08:25 Consult Oromaxillofacial Surgery Routine 06/28/24 16:36 Consult Cardiology Routine 07/04/24 12:36 Consult Orthopedic Surgery Routine Ordered Studies 06/28/24 01:11 CT cervical spine wo con Stat CT facial bones wo con Stat CT head/brain wo con Stat 06/28/24 03:10 CT chest diagnostic w con Stat 06/29/24 10:19 CT hip RT wo con Routine 06/29/24 10:30 CT shoulder RT wo con Routine 07/03/24 11:27 CT head/brain wo con Stat 07/04/24 08:29 MR brain wo con Routine 07/04/24 12:36 CT femur RT wo con Routine CT hip RT wo con Urgent 07/06/24 13:51 US venous doppler LE RT Routine Hospital Course (1) Acute diastolic (congestive) heart failure: 88-year-old male with past medical history significant for type 2 diabetes, 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 Acute on chronic diastolic CHF Having cough and shortness of breath going on for 1 week Mild pedal edema present Cardiology was consulted for comanagement; patient was treated with IV Lasix during the hospitalization. At the time of the discharge, patient was placed on Aldactone 12.5 mg once a day and Lasix 20 mg every other day Pneumonia Sputum culture :Positive Pseudomonas Was treated with Levaquin during the hospitalization Anemia, Acute blood loss Likely secondary to RLE hematoma from Fall Received total of 2 units of packed RBCs Repeat CT of the hip and femur: stable hematoma Orthopedic service consulted, Okay to resume anticoagulation once hemoglobin stabilized Hb stable; was placed on heparin drip; was switch to eliquis. Fall Likely secondary to above Bruise on the right side of the face CT head and CT cervical spine is okay Face CT shows nasal and maxillary fractures, consulted maxillofacial surgery: no procedures CT shoulder and right hip: No fracture Episode of dysarthria Possible TIA in the setting of atrial fibrillation noted 07/03/24 CT head: No acute process Brain MRI: No acute process Telestroke consult performed, neurologist recommending to resume anticoagulation when able In light of possible TIA in the setting of atrial fibrillation, resumed anticoagulation starting with low-dose heparin drip, if no signs of hematoma expansion, resume usual Eliquis in 24 to 48 hours Patient was discharged to rehab. Please note the above document was generated using voice recognition software. It may contain grammatical, syntax or spelling errors. Any formal questions or concerns about the content, text or information contained within the body of this dictation should be directly addressed to the provider for clarification Total Time Total Time Spent Total Time Spent (In Minutes): 45 Total Time Includes: Examination of the Patient, Discharge Planning, Medication Reconciliation, Communication With Other Providers and Other Discharge Plan Discharge Items Patient Disposition: Transfer Inpatient Rehab Fac Reason For Visit: FALL,COUGH, CHF Discharge Diagnosis: Acute on chronic diastolic CHF Pseudomonas Pneumonia Activity: Resume your previous activity Non-emergency contact: Primary Care Provider Call non-emergency contact if: you have any medication questions and your symptoms worsen Follow-up/Referrals: Juan Manuel Naik MD [Primary Care Provider] - Diet: Regular Diet Texture: Easy to Chew Addtl Attending Provider Instructions: You were admitted to the hospital due to pneumonia and heart failure. For the pneumonia, you are treated with antibiotic during the hospitalization. For the heart failure, your evaluated by cardiology during the hospitalization. You are prescribed Lasix 20 mg to be taken every other day spironolactone 12.5 mg to be taken daily. Please obtain chest x-ray in 3 weeks to ensure resolution of the pneumonia. Follow-up with your primary care doctor and cardiology Pending Studies at Discharge: No Stand-Alone Forms: My [facility] Skilled Items Patient informed of condition?: No DNR: No Discharge Level of Care: Acute rehab Communicable Disease: No Discharge Prognosis: Stable Lines: None Urinary Catheter: No Medications and DC Order Prescriptions: New spironolactone 25 mg Tablet 12.5 mg PO DAILY 30 Days Qty: 15 0RF ferrous sulfate 325 mg (65 mg iron) Tablet,Delayed Release (Dr/Ec) 325 mg PO BIDM Qty: 60 0RF guaifenesin [Mucinex] 600 mg Tablet Extended Release 12hr 600 mg PO Q12 5 Days Qty: 10 0RF furosemide [Lasix] 20 mg tablet 20 mg PO Q OTHER DAY Qty: 30 0RF Continued albuterol sulfate 90 mcg/actuation HFA aerosol inhaler 2 puff inhalation QID PRN (Reason: Wheezing) apixaban 5 mg tablet 5 mg PO BID aspirin 81 mg tablet,chewable 81 mg PO DAILY atorvastatin 10 mg tablet 10 mg PO QPM cyanocobalamin (vitamin B-12) 500 mcg tablet 500 mcg PO WK fluticasone furoate-vilanterol 100-25 mcg/dose blister with device 1 inh inhalation DAILY fluticasone propion-salmeterol 250-50 mcg/dose blister with device 1 inh inhalation BID isosorbide mononitrate 60 mg tablet extended release 24 hr 60 mg PO DAILY metformin 1,000 mg tablet 500 mg PO BID ondansetron 4 mg tablet,disintegrating 4 mg PO Q4H PRN (Reason: Nausea) Changed metoprolol succinate 25 mg tablet extended release 24 hr 50 mg PO DAILY Qty: 0 0RF Discharge Orders: Discharge Order (Routine); Ordered 07/07/24 Ordered By: Uli Angel Admission Data Admit Date/Time: 06/28/24 06:59 Attending Provider: Uli Angel Admit Provider: Amrik Valdes Primary Care Provider: Juan Manuel Naik Other Providers: Amrik Valdes; Jeffrey Hale; Krystle Rich; Robert Brasher; Kaushik Craft; Christiano Zhang; Scott Goodwin; Yordan Stapleton; Amy Fung; Colette Means; Ciara Jara; Krystle Najera; Elliot Winn; Dalton Collazo; Samantha Kay; Marbella Freitas; Oanh Talbert; Germain Peterson; Ignacio Ornelas; Modesta David; Jennifer Landa; IRB Approved Study,Emmanuel; Robert Talbot
== END 2024-07-07 13:40 | DRG 291 ==
LOC: ED 01:01 → EDINP 06:59 → SUATTDRO 06:59 → 2N 14:32